=== PATIENT | female | born 1935 | race Caucasian/White ===

== ENCOUNTER 2017-07-04 08:09 | Emergency (ER) | payer MEDICARE, BC ==
[2017-07-04] MEDS ORDERED: Zofran 4 MG/2 ML VIAL IV ONE (08:28)
[2017-07-04] MEDS ORDERED: Lactated Ringers 1,000 ML IV SCH (08:30)
[2017-07-04] MEDS ORDERED: Zofran 4 MG/2 ML VIAL ONE (08:32)
[2017-07-04] MEDS ORDERED: Lactated Ringers 1,000 ML IV ONE (08:32)
--- NOTE | 2017-07-04 08:35 | ERPHSYRPT ---
- History of Present Illness Time Seen by Provider: 07/04/17 08:21 Source: patient Patient Subjective Stated Complaint: PT STATES THAT SHE HAS HAD DIARRHEA SINCE THURDDAY OFF. AND ON STATES THAT SHE WAS SEEN YESTERDAY AT [facility] AND THEY DID A STOOL SPEICMEN STATES THAT LAST. NIGHT SHE STARTED VOMITING STATSE VOMITING X 1. DENIES FEVER STATSE SHE HAS SOME DISCOMFORT IN HER. ABDOMEN. Triage Nursing Assessment: PT ALERT WARM AND DRY RESP EASY NON LABORED. DRY MUCUS MEMBRANES NOTED AMBUALTED FROM WHEELCHAIR. WITH NURS ASSITENCE. ABDOMEN SOFT TENDER TO LEFT UPPER AND. LOWER QUAD. Physician History: CC: diarrhea hx: 82 y/o diabetic patient of Dr Barry and Alesha. She had diarrhea Thurs, Sat, Sun, and some yest. It is off and on every other day. This AM vomited large yellow emesis early AM. No fever or chills. No recent changes in her diabetic medications. She was traveling to [facility] and visited family. She used pedialyte and water. She saw [facility] yesterday for diarrhea and had negative C diff test. No abdominal pain. No blood in vomit or stool. Timing/Duration: day(s) (5-6), intermittent Severity: moderate Allergies/Adverse Reactions: No Known Drug Allergies Allergy (Unverified 07/04/17 08:19) Home Medications: Amlodipine Besylate [Amlodipine Besylate] 10 mg PO 07/04/17 [History] Fenofibrate Nanocrystallized [Fenofibrate] 48 mg PO BID 07/04/17 [History] Glimepiride [Glimepiride] 2 mg PO DAILY 07/04/17 [History] Latanoprost [Latanoprost] 07/04/17 [History] Losartan/Hydrochlorothiazide [Losartan-Hctz 100-12.5 mg Tab] 07/04/17 [History] Metformin HCl [Metformin HCl] 1,000 mg PO 07/04/17 [History] Metoprolol Tartrate 50 mg [Lopressor 50 MG] 50 mg PO 07/04/17 [History] NPH, Human Insulin Isophane [Humulin N] 07/04/17 [History] Hx Tetanus, Diphtheria Vaccination/Date Given: Yes Hx Influenza Vaccination/Date Given: Yes Hx Pneumococcal Vaccination/Date Given: Yes Immunizations Up to Date: Yes - Review of Systems Constitutional: Malaise, No Fever, No Chills Eyes: No Symptoms Ears, Nose, & Throat: No Symptoms Respiratory: No Cough, No Dyspnea Cardiac: No Chest Pain Abdominal/Gastrointestinal: Nausea, Vomiting (X1), Diarrhea, No Abdominal Pain Genitourinary Symptoms: No Dysuria Skin: No Rash Neurological: No Headache All Other Systems: Reviewed and Negative - Past Medical History Pertinent Past Medical History: Yes Cardiac History: Hypertension Endocrine Medical History: Diabetes Type II Other Medical History: DIABETIC - Past Surgical History Past Surgical History: Yes Other Surgical History: 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,COLON SURGERIES "YEARS AND YEARS AGO " PACEMAKER - Social History Smoking Status: Never smoker Exposure to second hand smoke: No Drug Use: none Patient Lives Alone: No (here with ) - Female History Hx Last Menstrual Period: N/A - Nursing Vital Signs Nursing Vital Signs: Initial Vital Signs Temperature 97.9 F 07/04/17 08:19 Pulse Rate 75 07/04/17 08:19 Respiratory Rate 18 07/04/17 08:19 O2 Sat by Pulse Oximetry 95 07/04/17 08:19 Pain Scale Pain Intensity 2 - Physical Exam General Appearance: alert Eye Exam: PERRL/EOMI Ears, Nose, Throat Exam: normal ENT inspection, other (tacky mucous membranes) Neck Exam: normal inspection, non-tender, supple Respiratory Exam: normal breath sounds Cardiovascular Exam: regular rate/rhythm Gastrointestinal/Abdomen Exam: soft, No tenderness, No distention, No mass, No guarding Back Exam: normal inspection, No CVA tenderness Extremity Exam: normal inspection, normal range of motion, No calf tenderness, No pedal edema Neurologic Exam: alert, oriented x 3, 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, 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, sensation nml, No motor deficits Skin Exam: warm, dry, No rash SpO2 Interpretation: normal SpO2: 95 Oxygen Delivery: Room Air - Course Nursing assessment & vital signs reviewed: Yes - Radiology Exams AAS X-ray Interpretation: Teleradiologist Report, Negative Ordered Tests: Active Orders 24 hr Category Date Time Status Cath for Specimen-Straight STAT Care 07/04/17 08:29 Active IV Insertion STAT Care 07/04/17 08:28 Active OBSTR/ACUTE ABDOMEN SERIES Stat Exams 07/04/17 08:29 Completed CBC W DIFF Stat Lab 07/04/17 08:50 Completed CMP Stat Lab 07/04/17 08:50 Completed CULTURE,URINE Stat Lab 07/04/17 09:00 Received Lactic Acid Stat Lab 07/04/17 08:28 Completed MAGNESIUM Stat Lab 07/04/17 08:50 Completed UA W/ MICROSCOPIC Stat Lab 07/04/17 09:00 Completed Medication Summary Generic Name Dose Route Start Last Admin Trade Name Mark PRN Reason Stop Dose Admin Lactated Ringer's 1,000 mls @ 250 mls/hr 07/04/17 08:30 07/04/17 08:56 Lactated Ringers IV 08/03/17 08:29 250 mls/hr .Q4H MONE Administration Magnesium Sulfate/Dextrose 100 mls @ 100 mls/hr 07/04/17 10:00 07/04/17 10:00 Magnesium 1 Gm / 100 Ml D5w IV 07/04/17 11:59 100 mls/hr Q1H MONE Administration Cefazolin Sodium/Dextrose 1 gm in 50 mls @ 100 mls/hr 07/04/17 10:05 Kefzol 1 Gm/50 Ml Premix IV 07/04/17 10:34 STAT STA Discontinued Medications Generic Name Dose Route Start Last Admin Trade Name Mark PRN Reason Stop Dose Admin Ondansetron HCl 4 mg 07/04/17 08:28 07/04/17 08:58 Zofran 4 Mg/2 Ml Vial IV 07/04/17 08:29 4 mg STAT ONE Administration Ondansetron HCl Confirm 07/04/17 08:32 Zofran 4 Mg/2 Ml Vial Administered 07/04/17 08:33 Dose 4 mg .ROUTE .STK-MED ONE Lab/Rad Data: Laboratory Result Diagrams 07/04/17 08:50 07/04/17 08:50 Laboratory Results 07/04/17 07/04/17 07/04/17 Range/Units 09:00 08:50 08:50 WBC (4.0-10.5) K/mm3 RBC (4.1-5.4) M/mm3 Hgb (12.0-16.0) gm/dl Hct (35-47) % MCV (78-100) fl MCH (26-32) pg MCHC (32-36) g/dl RDW (11.5-14.0) % Plt Count (150-450) K/mm3 MPV (6-9.5) fl Gran % (36.0-66.0) % Lymphocytes % (24.0-44.0) % Monocytes % (0.0-12.0) % Eosinophils % (0.00-5.0) % Basophils % (0.0-0.4) % Basophils # (0-0.4) Sodium 141 (136-145) mEq/L Potassium 4.1 (3.5-5.1) mEq/L Chloride 102 (98-107) mEq/L Carbon Dioxide 23.9 (21-32) mEq/L Anion Gap 18.8 H (5-15) MEQ/L BUN 16 (9-20) mg/dL Creatinine 1.07 (0.55-1.30) mg/dl Estimated GFR 52 ML/MIN Glucose 199 H (70-110) MG/DL Lactic Acid (0.4-2.0) Calcium 10.1 (8.5-10.1) mg/dL Magnesium 1.6 L (1.8-2.4) mg/dL Total Bilirubin 0.40 (0.2-1.0) mg/dL AST 25 (15-37) U/L ALT 31 (12-78) U/L Alkaline Phosphatase 47 (46-116) U/L Serum Total Protein 8.4 H (6.4-8.2) gm/dL Albumin 4.5 (3.4-5.0) g/dL Ur Collection Type CATH Urine Color YELLOW (YELLOW) Urine Appearance CLEAR (CLEAR) Urine pH 5.0 (5-6) Ur Specific [place] 1.015 (1.005-1.025) Urine Protein TRACE (Negative) Urine Ketones NEGATIVE (NEGATIVE) Urine Blood 5-10 (0-5) Benji/ul Urine Nitrite NEGATIVE (NEGATIVE) Urine Bilirubin NEGATIVE (NEGATIVE) Urine Urobilinogen NORMAL (0-1) mg/dL Ur Leukocyte Esterase 2+ (NEGATIVE) Urine Microscopic WBC 10-15 (0-5) /HPF Ur Epithelial Cells RARE (FEW) /HPF Urine Bacteria MODERATE (NEGATIVE) /HPF Urine Mucus MODERATE (NEGATIVE) /HPF Urine Culture Reflexed YES (NO) Urine Glucose TRACE (NEGATIVE) mg/dL Specimen Received 07/04/17 0807/04/17 07/04/17 Range/Units 08:50 08:28 WBC 14.8 H (4.0-10.5) K/mm3 RBC 4.22 (4.1-5.4) M/mm3 Hgb 12.7 (12.0-16.0) gm/dl Hct 37.9 (35-47) % MCV 89.8 (78-100) fl MCH 30.1 (26-32) pg MCHC 33.5 (32-36) g/dl RDW 14.3 H (11.5-14.0) % Plt Count 398 (150-450) K/mm3 MPV 10.0 H (6-9.5) fl Gran % 82.5 H (36.0-66.0) % Lymphocytes % 11.2 L (24.0-44.0) % Monocytes % 5.5 (0.0-12.0) % Eosinophils % 0.5 (0.00-5.0) % Basophils % 0.3 (0.0-0.4) % Basophils # 0.05 (0-0.4) Sodium (136-145) mEq/L Potassium (3.5-5.1) mEq/L Chloride (98-107) mEq/L Carbon Dioxide (21-32) mEq/L Anion Gap (5-15) MEQ/L BUN (9-20) mg/dL Creatinine (0.55-1.30) mg/dl Estimated GFR ML/MIN Glucose (70-110) MG/DL Lactic Acid 1.6 (0.4-2.0) Calcium (8.5-10.1) mg/dL Magnesium (1.8-2.4) mg/dL Total Bilirubin (0.2-1.0) mg/dL AST (15-37) U/L ALT (12-78) U/L Alkaline Phosphatase (46-116) U/L Serum Total Protein (6.4-8.2) gm/dL Albumin (3.4-5.0) g/dL Ur Collection Type Urine Color (YELLOW) Urine Appearance (CLEAR) Urine pH (5-6) Ur Specific [place] (1.005-1.025) Urine Protein (Negative) Urine Ketones (NEGATIVE) Urine Blood (0-5) Benji/ul Urine Nitrite (NEGATIVE) Urine Bilirubin (NEGATIVE) Urine Urobilinogen (0-1) mg/dL Ur Leukocyte Esterase (NEGATIVE) Urine Microscopic WBC (0-5) /HPF Ur Epithelial Cells (FEW) /HPF Urine Bacteria (NEGATIVE) /HPF Urine Mucus (NEGATIVE) /HPF Urine Culture Reflexed (NO) Urine Glucose (NEGATIVE) mg/dL Specimen Received - Progress Progress Note: 07/04/17 10:12 She has some leg cramps and labs show UTI. IV mag, LR given. She feels better with zofran. Will release with zofran odt and keflex and advised follow up. Counseled pt/family regarding: lab results, diagnosis, need for follow-up, rad results - Departure Time of Disposition: 10:13 Departure Disposition: Home Clinical Impression: Vomiting and diarrhea, Hypomagnesemia UTI (urinary tract infection) Qualifiers: Urinary tract infection type: acute cystitis Hematuria presence: without hematuria Qualified Code(s): N30.00 - Acute cystitis without hematuria Condition: Stable Critical Care Time: No Referrals: MICHAEL BARRY [Primary Care Provider] - Instructions: Diarrhea and Traveler's Diarrhea -- Adult, Vomiting -- Adult Additional Instructions: Sip fluids. Watch your sugars. Follow up with Dr Barry this week. Rx keflex for UTI. Rx zofran for nausea/vomiting. Prescriptions: Ondansetron ODT 4 MG [Zofran Odt 4 mg] 1 tab PO Q6H PRN PRN #10 tab.rapdis PRN Reason: Nausea/Vomiting Cephalexin Mh 500 mg [Keflex 500 mg] 1 cap PO QID #28 capsule
--- NOTE | 2017-07-04 08:59 | XRAY ---
Indication: Vomiting, diarrhea, and weakness 6 days. Weakness. Comparison: Chest exam January 11, 2010. 2 views of the abdomen nonacute and nonobstructed with calcified uterine fibroid and heavy scattered vascular calcifications. Remaining solid organs unremarkable. Osseous structures intact with mild multilevel degenerative spondylosis. Single PA chest again hyperinflated and clear with a few incidental calcified granulomas and left-sided dual-lead pacemaker. Heart is not enlarged. Bony thorax intact. Impression: Negative abdomen. Stable nonacute hyperinflated one view chest.
[2017-07-04 09:28] LABS: BASOPHIL % 0.3 % (0.0-0.4); Basophil (Absolute #) 0.05 (0-0.4); Eosinophil % 0.5 % (0.00-5.0); Eosinophil (Absolute #) 0.08 (0-0.5); Granulocyte Absolute (ANC) 12.19 (1.4-6.9); Granulocytes % 82.5 % (36.0-66.0); Hematocrit 37.9 % (35-47); Hemoglobin 12.7 gm/dl (12.0-16.0); Lymphocyte (Absolute #) 1.66 (1.0-4.6); Lymphocytes % 11.2 % (24.0-44.0); Mean Cell Volume 89.8 fl (78-100); Mean Corpuscular Hemoglobin 30.1 pg (26-32); Mean Corpuscular Hgb Concent. 33.5 g/dl (32-36); Monocyte (Absolute #) 0.81 (0.0-1.3); Monocytes % 5.5 % (0.0-12.0); Platelet Count 398 K/mm3 (150-450); Red Blood Count 4.22 M/mm3 (4.1-5.4); Red Cell Distribution Width 14.3 % (11.5-14.0); White Blood Count 14.8 K/mm3 (4.0-10.5)
[2017-07-04 09:30] LABS: ALBUMIN 4.5 g/dL (3.4-5.0); ANION GAP 18.8 MEQ/L (5-15); BILIRUBIN,TOTAL 0.4 mg/dL (0.2-1.0); Calcium 10.1 mg/dL (8.5-10.1); Carbon Dioxide 23.9 mEq/L (21-32); Creatinine 1 1.07 mg/dl (0.55-1.30); Potassium 4.1 mEq/L (3.5-5.1); Total Protein 8.4 gm/dL (6.4-8.2)
[2017-07-04 09:52] LABS: Appearance CLEAR (CLEAR); Bilirubin NEGATIVE (NEGATIVE); Glucose TRACE mg/dL (NEGATIVE); Ketones NEGATIVE (NEGATIVE); Leukocyte Esterase 2+ (NEGATIVE); Nitrite NEGATIVE (NEGATIVE); Protein,Urine Dip TRACE (Negative); Specific Gravity 1.015 (1.005-1.025); Urobilinogen NORMAL mg/dL (0-1)
[2017-07-04 09:53] LABS: Bacteria MODERATE /HPF (NEGATIVE); Epithelial Cells RARE /HPF (FEW); Mucus MODERATE /HPF (NEGATIVE)
[2017-07-04] MEDS ORDERED: Magnesium 1 Gm / 100 Ml D5W*** 200 ML IV ONE (09:57)
[2017-07-04] MEDS: Magnesium 1 Gm / 100 Ml D5W*** 100 ML IV SCH (10:00)
[2017-07-04] MEDS ORDERED: KEFZOL 1 GM/50 ML PREMIX** 1 GM/50 ML IVPB IV STA (10:05)
[2017-07-04] MEDS ORDERED: KEFZOL 1 GM/50 ML PREMIX** 1 GM/50 ML IVPB IV ONE (10:33)
[2017-07-04 11:52] VITALS: BP 150/45; PULSE 70; O2SAT 97
== END 2017-07-04 11:53 | disposition home or self-care (01) ==
LOC: ED 08:09
DX: R11.2 Nausea with vomiting, unspecified (principal); R19.7 Diarrhea, unspecified; E83.42 Hypomagnesemia; N30.00 Acute cystitis without hematuria; E11.9 Type 2 diabetes mellitus without complications; Z79.4 Long term (current) use of insulin; Z79.899 Other long term (current) drug therapy
CPT/HCPCS: 96374; 96365; 96366; 99284; 36000; 96360; 96361; 81000; 36415; 83735; 85025; 80053; 87086; 74022; 83605; P9612; J0690; J2405; J3475

== ENCOUNTER 2018-10-14 06:51 | Emergency (ER) | payer MEDICARE, BC ==
[2018-10-14] MEDS ORDERED: Sodium Chloride 0.9% 1000 ML 1,000 ML IV STA (07:34)
--- NOTE | 2018-10-14 07:38 | ERPHSYRPT ---
- History of Present Illness Time Seen by Provider: 10/14/18 07:29 Historian: patient Exam Limitations: no limitations Patient Subjective Stated Complaint: diarrhea since yesterday Triage Nursing Assessment: ambulated to room per self. skin w/d, color normal, resp easy. abd soft, normal bowel sounds, nontender. states has had two liquid stools today. Physician History: 83-year-old white female arrives with complaint of diarrhea since yesterday. Patient states she had oatmeal yesterday for breakfast she went to a local [facility] festival she states she started having loose stools. She states she went to clear fluids last night and thinks he settled down but this morning she's had 2 more loose stools. She denies abdominal pain she denies any blood in her stools. Past medical history includes high blood pressure diabetes. Past surgical history blockage and carotid colon surgery in the distant past. Social history denies tobacco alcohol or illicit drug use. Timing/Duration: yesterday Activities at Onset: none Quality: other (no pain) Abdominal Pain Onset Location: other (no pain) Pain Radiation: other (no pain) Severity of Pain-Max: none Severity of Pain-Current: none Modifying Factors: Worsens With: analgesics, antacids, breathing, coughing, defecating, eating, exercise, lying down, movement, palpation, rest, urinating, vomiting, position, walking Associated Symptoms: diarrhea, No back, No chest pain, No diaphoresis, No fever/ chills, No fatigue, No headache, No heartburn, No loss of appetite, No nausea, No neck pain, No rash, No shortness of breath, No syncope, No vomiting, No weakness Previous symptoms: same symptoms as today (similar symptoms a year ago) Allergies/Adverse Reactions: No Known Drug Allergies Allergy (Verified 10/14/18 07:12) Home Medications: Amlodipine Besylate 10 mg PO DAILY 07/04/17 [History] Fenofibrate Nanocrystallized [Fenofibrate] 48 mg PO BID 07/04/17 [History] Glimepiride 2 mg PO DAILY 07/04/17 [History] Latanoprost 0.005 ea OP DAILY 07/04/17 [History] Losartan/Hydrochlorothiazide [Losartan-Hctz 100-12.5 mg Tab] 100 mg PO DAILY [History] Metformin HCl 1,000 mg PO BID 07/04/17 [History] Metoprolol Tartrate 50 mg [Lopressor 50 MG] 50 mg PO BID 07/04/17 [History ] NPH, Human Insulin Isophane [Humulin N] 24 units SQ DAILY 07/04/17 [History] Hx Tetanus, Diphtheria Vaccination/Date Given: No Hx Influenza Vaccination/Date Given: Yes Hx Pneumococcal Vaccination/Date Given: Yes - Review of Systems Constitutional: No Fever, No Chills Eyes: No Symptoms Ears, Nose, & Throat: No Symptoms Respiratory: No Cough, No Dyspnea Cardiac: No Chest Pain, No Edema, No Syncope Abdominal/Gastrointestinal: Diarrhea, No Abdominal Pain, No Nausea, No Vomiting , No Constipation, No Hematemesis, No Hematochezia, No Melena, No Dysphagia, No Appetite Changes Genitourinary Symptoms: No Dysuria Musculoskeletal: No Back Pain, No Neck Pain Skin: No Rash Neurological: No Dizziness, No Focal Weakness, No Sensory Changes Psychological: No Symptoms Endocrine: No Symptoms All Other Systems: Reviewed and Negative - Past Medical History Pertinent Past Medical History: Yes Cardiac History: Angina, Hypertension Endocrine Medical History: Diabetes Type II Female Reproductive Disorders: Abnormal Uterine Bleeding Other Medical History: DIABETIC - Past Surgical History Past Surgical History: Yes Cardiac: Pacemaker Female Surgical History: Hysterectomy Other Surgical History: 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,COLON SURGERIES "YEARS AND YEARS AGO " - Social History Smoking Status: Former smoker Exposure to second hand smoke: No Drug Use: none Patient Lives Alone: No - Female History Hx Now: No - Nursing Vital Signs Nursing Vital Signs: Initial Vital Signs Temperature 98.3 F 10/14/18 07:05 Pulse Rate 83 10/14/18 07:05 Respiratory Rate 16 10/14/18 07:05 Blood Pressure 142/59 10/14/18 07:05 O2 Sat by Pulse Oximetry 96 10/14/18 07:05 Pain Scale Pain Intensity 0 - Physical Exam General Appearance: no apparent distress, alert Eye Exam: PERRL/EOMI, eyes nml inspection Ears, Nose, Throat Exam: normal ENT inspection, pharynx normal, moist mucous membranes Neck Exam: normal inspection, non-tender, supple, full range of motion Respiratory Exam: normal breath sounds, lungs clear, No respiratory distress Cardiovascular Exam: regular rate/rhythm, normal heart sounds, capillary refill <2 sec Gastrointestinal/Abdomen Exam: soft, No tenderness, No mass Back Exam: normal inspection, normal range of motion, No CVA tenderness, No vertebral tenderness Extremity Exam: normal inspection, normal range of motion, pelvis stable Neurologic Exam: alert, oriented x 3, 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, 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, normal mood/affect, nml cerebellar function, sensation nml, No motor deficits Skin Exam: normal color, warm, dry SpO2 Interpretation: normal (96%) SpO2: 96 - Course Nursing assessment & vital signs reviewed: Yes Ordered Tests: Active Orders 24 hr Category Date Time Status IV Insertion STAT Care 10/14/18 07:34 Active AMYLASE Stat Lab 10/14/18 07:47 Completed CBC W DIFF Stat Lab 10/14/18 07:47 Completed CMP Stat Lab 10/14/18 07:47 Completed LIPASE Stat Lab 10/14/18 07:47 Completed Urinalysis with Microscopy Stat Lab 10/14/18 07:50 Completed Medication Summary Discontinued Medications Generic Name Dose Route Start Last Admin Trade Name Mark PRN Reason Stop Dose Admin Sodium Chloride 1,000 mls @ 999 mls/hr 10/14/18 07:34 10/14/18 07:41 Sodium Chloride 0.9% 1000 Ml IV 10/14/18 08:34 999 mls/hr .Q1H1M STA Administration Sodium Chloride Confirm 10/14/18 07:39 Sodium Chloride 0.9% 1000 Ml Administered 10/14/18 07:40 Dose 1,000 mls @ ud .ROUTE .STK-MED ONE Lab/Rad Data: Laboratory Result Diagrams 10/14/18 07:47 10/14/18 07:47 Laboratory Results 10/14/18 10/14/18 10/14/18 Range/Units 07:50 07:47 07:47 WBC 6.2 (4.0-10.5) K/mm3 RBC 3.93 L (4.1-5.4) M/mm3 Hgb 12.0 (12.0-16.0) gm/dl Hct 36.1 (35-47) % MCV 91.9 (78-100) fl MCH 30.5 (26-32) pg MCHC 33.2 (32-36) g/dl RDW 13.8 (11.5-14.0) % Plt Count 389 (150-450) K/mm3 MPV 9.9 H (6-9.5) fl Gran % 52.9 (36.0-66.0) % Eos # (Auto) 0.21 (0-0.5) Absolute Lymphs (auto) 2.10 (1.0-4.6) Absolute Monos (auto) 0.55 (0.0-1.3) Lymphocytes % 34.1 (24.0-44.0) % Monocytes % 8.9 (0.0-12.0) % Eosinophils % 3.4 (0.00-5.0) % Basophils % 0.7 (0.0-0.4) % Absolute Granulocytes 3.25 (1.4-6.9) Basophils # 0.04 (0-0.4) Sodium 137 (137-145) mmol/L Potassium 4.0 (3.5-5.1) mmol/L Chloride 99 (98-107) mmol/L Carbon Dioxide 26 (22-30) mmol/L Anion Gap 15.8 H (5-15) MEQ/L BUN 19 H (7-17) mg/dL Creatinine 0.72 (0.52-1.04) mg/dL Estimated GFR > 60.0 ML/MIN Glucose 126 H (74-106) mg/dL Calcium 10.0 (8.4-10.2) mg/dL Total Bilirubin 0.50 (0.2-1.3) mg/dL AST 26 (14-36) U/L ALT 16 (0-35) U/L Alkaline Phosphatase 41 (38-126) U/L Serum Total Protein 7.8 (6.3-8.2) g/dL Albumin 4.5 (3.5-5.0) g/dL Amylase 73 (30-110) U/L Lipase 69 (23-300) U/L Urine Color YELLOW (YELLOW) Urine Appearance CLEAR (CLEAR) Urine pH 7.0 (5-6) Ur Specific [place] 1.006 (1.005-1.025) Urine Protein NEGATIVE (Negative) Urine Ketones NEGATIVE (NEGATIVE) Urine Blood NEGATIVE (0-5) Benji/ul Urine Nitrite NEGATIVE (NEGATIVE) Urine Bilirubin NEGATIVE (NEGATIVE) Urine Urobilinogen NEGATIVE (0-1) mg/dL Ur Leukocyte Esterase NEGATIVE (NEGATIVE) Urine Culture Reflexed Cancelled Urine Glucose NEGATIVE (NEGATIVE) mg/dL - Progress Progress: improved Progress Note: 10/14/18 08:35 patient stable vitals are stable labs essentially normal Will place patient on Lomotil clear fluids. - Departure Departure Disposition: Home Clinical Impression: Diarrhea Qualifiers: Diarrhea type: unspecified type Qualified Code(s): R19.7 - Diarrhea, unspecified Condition: Fair Critical Care Time: No Referrals: MICHAEL DAHL [Primary Care Provider] - Additional Instructions: Return home. Plenty of fluids. Clear fluids only 24-48 hours if diarrhea abdominal pain or vomiting Lomotil one orally 4 times a day as needed for loose stools #12. Followup with your family DrEda if symptoms no better in 24-48 hours or persist longer than 72 hours. Return for acute distress or for severe symptoms. Prescriptions: Diphenoxylate HCl/Atropine [Lomotil] 1 tab PO QIDPRN PRN #12 tablet PRN Reason: Loose Stools
[2018-10-14] MEDS ORDERED: Sodium Chloride 0.9% 1000 ML 1,000 ML ONE (07:39)
[2018-10-14 07:56] LABS: Appearance CLEAR (CLEAR); Bilirubin NEGATIVE (NEGATIVE); Blood NEGATIVE Ery/ul (0-5); Glucose NEGATIVE (NEGATIVE); Ketones NEGATIVE (NEGATIVE); Leukocyte Esterase NEGATIVE (NEGATIVE); Nitrite NEGATIVE (NEGATIVE); Protein,Urine Dip NEGATIVE (Negative); Specific Gravity 1.006 (1.005-1.025); Urobilinogen NEGATIVE mg/dL (0-1)
[2018-10-14 08:02] LABS: BASOPHIL % 0.7 % (0.0-0.4); Basophil (Absolute #) 0.04 (0-0.4); Eosinophil % 3.4 % (0.00-5.0); Eosinophil (Absolute #) 0.21 (0-0.5); Granulocyte Absolute (ANC) 3.25 (1.4-6.9); Granulocytes % 52.9 % (36.0-66.0); Hematocrit 36.1 % (35-47); Lymphocytes % 34.1 % (24.0-44.0); Mean Cell Volume 91.9 fl (78-100); Mean Corpuscular Hemoglobin 30.5 pg (26-32); Mean Corpuscular Hgb Concent. 33.2 g/dl (32-36); Mean Platelet Volume 9.9 fl (6-9.5); Monocyte (Absolute #) 0.55 (0.0-1.3); Monocytes % 8.9 % (0.0-12.0); Platelet Count 389 K/mm3 (150-450); Red Blood Count 3.93 M/mm3 (4.1-5.4); Red Cell Distribution Width 13.8 % (11.5-14.0); White Blood Count 6.2 K/mm3 (4.0-10.5)
[2018-10-14 08:12] LABS: ALBUMIN 4.5 g/dL (3.5-5.0); ALKALINE PHOSPHATASE 41 U/L (38-126); AMYLASE 73 U/L (30-110); ANION GAP 15.8 MEQ/L (5-15); BLOOD UREA NITROGEN 19 mg/dL (7-17); CHLORIDE 99 mmol/L (98-107); Carbon Dioxide 26 mmol/L (22-30); Creatinine 1 0.72 mg/dL (0.52-1.04); Glucose 126 mg/dL (74-106); LIPASE 69 U/L (23-300); SGOT/AST 26 U/L (14-36); SGPT/ALT 16 U/L (0-35); SODIUM 137 mmol/L (137-145); Total Protein 7.8 g/dL (6.3-8.2)
[2018-10-14 08:38] VITALS: O2SAT 96
[2018-10-14 08:43] LABS: Epithelial Cells RARE /HPF (FEW); RBC 0-2 /HPF (0-2); WBC NONE SEEN /HPF (0-5)
[2018-10-14 09:00] VITALS: BP 134/55; PULSE 70
== END 2018-10-14 09:00 | disposition home or self-care (01) ==
LOC: ED 06:51
DX: R19.7 Diarrhea, unspecified (principal); I10 Essential (primary) hypertension; E11.9 Type 2 diabetes mellitus without complications; Z79.899 Other long term (current) drug therapy; Z79.84 Long term (current) use of oral hypoglycemic drugs; Z79.4 Long term (current) use of insulin
CPT/HCPCS: 36000; 36415; 80053; 81001; 82150; 83690; 85025; 87086; 96360; 96374; 99284; P9612

== ENCOUNTER 2019-08-14 00:42 | Emergency (ER) | payer MEDICARE, BC ==
--- NOTE | 2019-08-14 01:34 | ERPHSYRPT ---
- History of Present Illness Time Seen by Provider: 08/14/19 01:27 Source: patient, family () Exam Limitations: no limitations Patient Subjective Stated Complaint: pt states that she got up to go to the bathroom, pt states that her rt side of her neck hurts and unable to move it, pt states that she has increased swelling to ANA wrist, pt c/o shaking to rt arm and leg, pt states she has RA, states that pt has had carotid artery on rt side Triage Nursing Assessment: pt ambulated into the er, axo x3, hyertensive, c/o 8/ 10 pain to rt side of neck, tenderness present to rt side of neck down to rt arm , tremors present to rt arm, lump present to rt side of neck, pupils 2 mm PERRL , positive radial pulses, good cap refill Physician History: For the past 4-5 days pt has had right sided neck pain, worse in the past hour. About 1 hour ago pt had shaking of her right upper extremity and swelling of both wrists. Pt has RA. Recent trauma, chest pain, shortness of air, fever all denied. Allergies/Adverse Reactions: No Known Drug Allergies Allergy (Verified 08/14/19 01:22) Home Medications: Amlodipine Besylate 10 mg PO DAILY 07/04/17 [History] Fenofibrate Nanocrystallized [Fenofibrate] 48 mg PO BID 07/04/17 [History] Glimepiride 2 mg PO DAILY 07/04/17 [History] Metformin HCl 500 mg PO BID 07/04/17 [History] Metoprolol Tartrate 50 mg [Lopressor 50 MG] 50 mg PO BID 07/04/17 [History ] NPH, Human Insulin Isophane [Humulin N] 20 units SQ DAILY 07/04/17 [History] Clopidogrel Bisulfate [Clopidogrel] 75 mg PO DAILY 08/14/19 [History] Folic Acid 1 mg [Folate 1 mg] 1 mg PO DAILY 08/14/19 [History] Hydrochlorothiazide 12.5 mg PO DAILY 08/14/19 [History] Isosorbide Mononitrate [Isosorbide Mononitrate ER] 30 mg PO DAILY 08/14/19 [ History] Latanoprost 1 drop OP HS 08/14/19 [History] Losartan Potassium 100 mg PO DAILY 08/14/19 [History] Methotrexate Sodium [Methotrexate] 6 tab PO WEEKLY 08/14/19 [History] Prednisone 1 mg PO DAILY 08/14/19 [History] Hx Tetanus, Diphtheria Vaccination/Date Given: No Hx Influenza Vaccination/Date Given: Yes Hx Pneumococcal Vaccination/Date Given: Yes Travel Risk - International Travel Have you traveled outside of the country in past 3 weeks: No (n) Have you or anyone close to you been diagnosed with or: No Do your reside in a community with a known COVID-19 case?: Yes If Yes where:: [place] - Coronavirus Screening Has patient experienced Coronavirus symptoms: No - Review of Systems Constitutional: No Fever Respiratory: No Dyspnea Cardiac: No Chest Pain Abdominal/Gastrointestinal: No Abdominal Pain, No Nausea, No Vomiting Musculoskeletal: Neck Pain Neurological: Other (tremors of right upper extremity for the past hour.) All Other Systems: Reviewed and Negative - Past Medical History Pertinent Past Medical History: Yes Neurological History: Dementia Cardiac History: Angina, Coronary Artery Disease, Hypertension Endocrine Medical History: Diabetes Type II Female Reproductive Disorders: Abnormal Uterine Bleeding Other Medical History: DIABETIC - Past Surgical History Past Surgical History: Yes Cardiac: Pacemaker Female Surgical History: Hysterectomy Other Surgical History: 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,COLON SURGERIES "YEARS AND YEARS AGO " - Social History Smoking Status: Former smoker Exposure to second hand smoke: No Drug Use: none Patient Lives Alone: No - Female History Hx Now: No - Nursing Vital Signs Nursing Vital Signs: Initial Vital Signs Temperature 98.1 F 08/14/19 01:06 Pulse Rate 89 08/14/19 01:06 Respiratory Rate 17 08/14/19 01:06 Blood Pressure 172/89 08/14/19 01:06 O2 Sat by Pulse Oximetry 97 08/14/19 01:06 Pain Scale Pain Intensity 8 - Physical Exam General Appearance: alert Eye Exam: eyes nml inspection Ears, Nose, Throat Exam: pharynx normal, moist mucous membranes Neck Exam: non-tender, other (painful rotation of head to right or left which radiates to right shoulder.) Respiratory Exam: normal breath sounds Cardiovascular Exam: normal heart sounds Gastrointestinal/Abdomen Exam: soft, normal bowel sounds Back Exam: No vertebral tenderness Extremity Exam: normal range of motion, other (mild edema of both wrists.) Neurologic Exam: alert, cooperative, sensation nml, other (mild tremors at rest of right upper extremityl) Skin Exam: warm, dry SpO2 Interpretation: normal SpO2: 97 O2 Delivery: Room Air - Course Nursing assessment & vital signs reviewed: Yes - CT Exams Soft Tissue Neck CT Interpretation: Tele-radiologist Report (no acute abnormality demonstrated. previous right carotid endarteredtomy.) Head CT Interpretation: Tele-radiologist Report (diffuse atrophy and chronic/remote ischemic changes without evidence of superimposed acute infarct, hemorrhage or mass-effect at this time.) Ordered Tests: Active Orders 24 hr Category Date Time Status Cervical Collar Application STAT Care 08/14/19 03:25 Active Isolation, Initiate & Maintain Q4H Care 08/14/19 01:22 Active HEAD WITHOUT CONTRAST [CT] Stat Exams 08/14/19 01:36 Taken NECK WO CONTRAST [CT] Stat Exams 08/14/19 01:36 Taken CBC W DIFF Stat Lab 08/14/19 01:54 Completed CMP Stat Lab 08/14/19 01:54 Completed MAG [MAGNESIUM] Stat Lab 08/14/19 01:54 Completed UA W/RFX UR CULTURE Stat Lab 08/14/19 02:35 Completed Medication Summary Discontinued Medications Generic Name Dose Route Start Last Admin Trade Name Freq PRN Reason Stop Dose Admin Hydrocodone Bitart/Acetaminophen 1 tab 08/14/19 03:26 Yeaddiss 5/325 Mg PO 08/14/19 03:27 STAT ONE Hydrocodone Bitart/Acetaminophen Confirm 08/14/19 03:28 Yeaddiss 5/325 Mg Administered 08/14/19 03:29 Dose 1 tab .ROUTE .STK-MED ONE Lab/Rad Data: Laboratory Result Diagrams 08/14/19 01:54 08/14/19 01:54 Laboratory Results 08/14/19 08/14/19 08/14/19 Range/Units 02:35 01:54 01:54 WBC 9.3 (4.0-10.5) K/mm3 RBC 3.28 L (4.1-5.4) M/mm3 Hgb 10.2 L (12.0-16.0) gm/dl Hct 30.8 L (35-47) % MCV 93.9 (78-100) fl MCH 31.1 (26-32) pg MCHC 33.1 (32-36) g/dl RDW 16.0 H (11.5-14.0) % Plt Count 492 H (150-450) K/mm3 MPV 8.7 (7.5-11.0) fl Gran % 64.2 (36.0-66.0) % Eos # (Auto) 0.33 (0-0.5) Absolute Lymphs (auto) 1.89 (1.0-4.6) Absolute Monos (auto) 0.98 (0.0-1.3) Lymphocytes % 20.3 L (24.0-44.0) % Monocytes % 10.5 (0.0-12.0) % Eosinophils % 3.6 (0.00-5.0) % Basophils % 1.4 (0.0-0.4) % Absolute Granulocytes 5.96 (1.4-6.9) Basophils # 0.13 (0-0.4) Sodium 138 (137-145) mmol/L Potassium 3.8 (3.5-5.1) mmol/L Chloride 102 (98-107) mmol/L Carbon Dioxide 25 (22-30) mmol/L Anion Gap 15.1 H (5-15) MEQ/L BUN 19 H (7-17) mg/dL Creatinine 0.84 (0.52-1.04) mg/dL Estimated GFR > 60.0 ML/MIN Glucose 178 H (74-106) mg/dL Calcium 9.7 (8.4-10.2) mg/dL Magnesium 1.8 (1.6-2.3) mg/dL Total Bilirubin 0.30 (0.2-1.3) mg/dL AST 27 (14-36) U/L ALT 16 (0-35) U/L Alkaline Phosphatase 71 (38-126) U/L Serum Total Protein 7.8 (6.3-8.2) g/dL Albumin 4.1 (3.5-5.0) g/dL Urine Color STRAW (YELLOW) Urine Appearance CLEAR (CLEAR) Urine pH 8.0 (5-6) Ur Specific [place] 1.005 (1.005-1.025) Urine Protein NEGATIVE (Negative) Urine Ketones NEGATIVE (NEGATIVE) Urine Blood NEGATIVE (0-5) Benji/ul Urine Nitrite NEGATIVE (NEGATIVE) Urine Bilirubin NEGATIVE (NEGATIVE) Urine Urobilinogen NEGATIVE (0-1) mg/dL Ur Leukocyte Esterase SMALL (NEGATIVE) Urine WBC (Auto) 3-5 (0-5) /HPF Urine RBC (Auto) NONE (0-2) /HPF U Epithel Cells (Auto) NONE (FEW) /HPF Urine Bacteria (Auto) RARE (NEGATIVE) /HPF Urine Mucus (Auto) SLIGHT (NEGATIVE) /HPF Urine Culture Reflexed NO (NO) Urine Glucose 50 (NEGATIVE) mg/dL - Progress Progress: improved Progress Note: 08/14/19 03:31 pt has no more tremors of right upper extremity and can rotate head and walk without difficulty. Counseled pt/family regarding: lab results, rad results - Departure Departure Disposition: Home Clinical Impression: neck pain, tremors of right upper extremity Condition: Stable Critical Care Time: No Referrals: JOVI OLIVEIRA MD [Primary Care Provider] - Instructions: Generalized Neck Pain (DC) Additional Instructions: Follow up with private doctor tomorrow. Wear soft c-collar for 2 weeks only while awake.
[2019-08-14 01:59] LABS: Absolute Neutrophil Ct (ANC) 5.96 (1.4-6.9); BASOPHIL % 1.4 % (0.0-0.4); Basophil (Absolute #) 0.13 (0-0.4); Eosinophil % 3.6 % (0.00-5.0); Eosinophil (Absolute #) 0.33 (0-0.5); Hematocrit 30.8 % (35-47); Hemoglobin 10.2 gm/dl (12.0-16.0); Lymphocyte (Absolute #) 1.89 (1.0-4.6); Lymphocytes % 20.3 % (24.0-44.0); Mean Cell Volume 93.9 fl (78-100); Mean Corpuscular Hemoglobin 31.1 pg (26-32); Mean Corpuscular Hgb Concent. 33.1 g/dl (32-36); Mean Platelet Volume 8.7 fl (7.5-11.0); Monocyte (Absolute #) 0.98 (0.0-1.3); Monocytes % 10.5 % (0.0-12.0); Neutrophil % 64.2 % (36.0-66.0); Platelet Count 492 K/mm3 (150-450); Red Blood Count 3.28 M/mm3 (4.1-5.4); White Blood Count 9.3 K/mm3 (4.0-10.5)
[2019-08-14 02:09] LABS: ALBUMIN 4.1 g/dL (3.5-5.0); ALKALINE PHOSPHATASE 71 U/L (38-126); ANION GAP 15.1 MEQ/L (5-15); BLOOD UREA NITROGEN 19 mg/dL (7-17); CHLORIDE 102 mmol/L (98-107); Calcium 9.7 mg/dL (8.4-10.2); Carbon Dioxide 25 mmol/L (22-30); Creatinine 1 0.84 mg/dL (0.52-1.04); Glucose 178 mg/dL (74-106); MAGNESIUM 1.8 mg/dL (1.6-2.3); Potassium 3.8 mmol/L (3.5-5.1); SGOT/AST 27 U/L (14-36); SGPT/ALT 16 U/L (0-35); SODIUM 138 mmol/L (137-145); Total Protein 7.8 g/dL (6.3-8.2)
[2019-08-14 02:20] VITALS: PULSE 93
[2019-08-14 02:44] LABS: Appearance CLEAR (CLEAR); Bacteria RARE /HPF (NEGATIVE); Bilirubin NEGATIVE (NEGATIVE); Blood NEGATIVE Ery/ul (0-5); Glucose 50 mg/dL (NEGATIVE); Ketones NEGATIVE (NEGATIVE); Leukocyte Esterase SMALL (NEGATIVE); Mucus SLIGHT /HPF (NEGATIVE); Nitrite NEGATIVE (NEGATIVE); Protein,Urine Dip NEGATIVE (Negative); Specific Gravity 1.005 (1.005-1.025); Urobilinogen NEGATIVE mg/dL (0-1)
[2019-08-14] MEDS ORDERED: NORCO 5/325 MG PO ONE (03:26)
[2019-08-14] MEDS ORDERED: NORCO 5/325 MG ONE (03:28)
[2019-08-14 03:45] VITALS: BP 143/66; O2SAT 93
--- NOTE | 2019-08-14 09:01 | XRAY ---
Indication: Right extremity tremors and decreased range of motion. Hypertension. Multiple contiguous axial images obtained through the head without contrast. Comparison: April 10, 2019. Continued age-appropriate global atrophy and moderate periventricular degenerative micro-ischemia bilaterally. No acute intracranial hemorrhage, abnormal extra-axial fluid collection, or mass effect. Fourth ventricle is midline without hydrocephalus. Bony calvarium intact. Visualized paranasal sinuses and mastoid air cells are clear. Impression: Stable nonacute senile brain. Comment: Preliminary interpretation was made by [facility]. No critical discrepancy.
--- NOTE | 2019-08-14 09:09 | XRAY ---
Indication: Right neck pain/lump. Right extremity tremors and decreased range of motion. Hypertension. Multiple contiguous axial images obtained through the neck without contrast as ordered. Sagittal and coronal reformatted images obtained. Comparison: None Patient is edentulous. Right parotid gland demonstrates 7 mm intraparotid lymph node. Submandibular glands are bilaterally symmetric. No pathologic cervical or supraclavicular lymphadenopathy. Moderate left carotid calcifications. There has been right carotid endarterectomy. 3 mm benign-appearing right thyroid chunky calcification. Supra and infraglottic airway widely patent. Normal epiglottis. Underlying cervical spine intact with osteopenia and mild dextroscoliosis. Lung apices demonstrates minimal fibrosis/scarring bilaterally. Partially visualized left cardiac pacer leads. CT head reported separately. Impression: 1. Benign-appearing right thyroid calcification, small right intraparotid lymph node, and chronic bony findings. 2. Remaining CT neck without contrast exam is negative. Comment: Preliminary interpretation was made by [facility]. No critical discrepancy.
== END 2019-08-14 03:44 | disposition home or self-care (01) ==
LOC: ED 00:42
DX: M54.2 Cervicalgia (principal); R25.1 Tremor, unspecified; I10 Essential (primary) hypertension; I25.10 Atherosclerotic heart disease of native coronary artery without angina pectoris; E11.9 Type 2 diabetes mellitus without complications; Z79.899 Other long term (current) drug therapy; Z95.0 Presence of cardiac pacemaker
CPT/HCPCS: 36415; 70450; 70490; 80053; 81001; 83735; 85025; 99284; L0120; A9270-GY

== ENCOUNTER 2019-08-25 01:18 | Emergency (ER) | payer MEDICARE, BC ==
[2019-08-25] MEDS ORDERED: DELTASONE 20 MG PO ONE (01:56)
[2019-08-25] MEDS ORDERED: DELTASONE 20 MG ONE (02:00)
--- NOTE | 2019-08-25 02:04 | ERPHSYRPT ---
- History of Present Illness Time Seen by Provider: 08/25/19 01:58 Source: patient, family Exam Limitations: no limitations Patient Subjective Stated Complaint: states that pt has had increased swelling in ANA wrist, rt knee and rt ankle, states that pt has RA and dementia, spouse states that pt finish antibiotics on monday for infection on neck, spouse states that pt can not lift her arm or push herself up off the toliet, spouse states that pt has increased shaking to both arms Triage Nursing Assessment: pt came into er via wheelchair, pt is axo x1, confused, drowsy, tremor present in rt arm, edema present in ana wrist, no edema present in RLE, hypertensive, pt unable to raise arms with out yelling out in pain, c/o neck pain, 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 Has noted sudden swelling also of right leg which has not happened before - no sob but has swelling all over and HX CAD so will also check cardiac labs. also for DVT. no current CP or SObreath but has general swelling which could indicate renal or CHF problem THere is no focal neurologic finding but does have hx of carotid blockage - no CVA but has dementia and tremor for years - no known parkinsons diagnosis yet ; Timing/Duration: week(s) Severity: moderate Modifying Factors: Improves With: movement Allergies/Adverse Reactions: No Known Drug Allergies Allergy (Verified 08/25/19 01:48) Home Medications: Amlodipine Besylate 10 mg PO DAILY 07/04/17 [History] Fenofibrate Nanocrystallized [Fenofibrate] 48 mg PO BID 07/04/17 [History] Glimepiride 2 mg PO DAILY 07/04/17 [History] Metformin HCl 500 mg PO BID 07/04/17 [History] Metoprolol Tartrate 50 mg [Lopressor 50 MG] 50 mg PO BID 07/04/17 [History ] NPH, Human Insulin Isophane [Humulin N] 20 units SQ HS 07/04/17 [History] Clopidogrel Bisulfate [Clopidogrel] 75 mg PO DAILY 08/14/19 [History] Folic Acid 1 mg [Folate 1 mg] 1 mg PO DAILY 08/14/19 [History] Hydrochlorothiazide 12.5 mg PO DAILY 08/14/19 [History] Isosorbide Mononitrate [Isosorbide Mononitrate ER] 30 mg PO DAILY 08/14/19 [ History] Latanoprost 1 drop OP HS 08/14/19 [History] Losartan Potassium 100 mg PO DAILY 08/14/19 [History] Amiodarone HCl 200 mg [Cordarone 200 MG] 200 mg PO DAILY 08/25/19 [History ] Donepezil HCl [Aricept] 2.5 mg PO HS 08/25/19 [History] Hx Tetanus, Diphtheria Vaccination/Date Given: No Hx Influenza Vaccination/Date Given: Yes Hx Pneumococcal Vaccination/Date Given: Yes Travel Risk - International Travel Have you traveled outside of the country in past 3 weeks: No (N) Have you or anyone close to you been diagnosed with or: No Do your reside in a community with a known COVID-19 case?: Yes If Yes where:: [facility] - Coronavirus Screening Has patient experienced Coronavirus symptoms: Yes Symptoms experienced: muscle pain, weakness - Review of Systems Constitutional: Weakness, No Fever, No Chills Eyes: No Symptoms Ears, Nose, & Throat: No Symptoms Respiratory: No Cough, No Dyspnea Cardiac: No Chest Pain, No Edema, No Syncope Abdominal/Gastrointestinal: No Abdominal Pain, No Nausea, No Vomiting, No Diarrhea Genitourinary Symptoms: No Dysuria Musculoskeletal: Joint Pain, Joint Swelling, No Back Pain, No Neck Pain, No Injury Skin: No Cellulitis, No Rash, No Skin Lesions Neurological: Tremors (general), No Dizziness, No Focal Weakness, No Sensory Changes Psychological: No Symptoms Endocrine: No Symptoms All Other Systems: Reviewed and Negative - Past Medical History Pertinent Past Medical History: Yes Neurological History: Dementia Cardiac History: Angina, Coronary Artery Disease, Hypertension Endocrine Medical History: Diabetes Type II Female Reproductive Disorders: Abnormal Uterine Bleeding Other Medical History: DIABETIC - Past Surgical History Past Surgical History: Yes Cardiac: Pacemaker Female Surgical History: Hysterectomy Other Surgical History: 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,COLON SURGERIES "YEARS AND YEARS AGO " - Social History Smoking Status: Former smoker Exposure to second hand smoke: No Drug Use: none Patient Lives Alone: No - Female History Hx Now: No - Nursing Vital Signs Nursing Vital Signs: Initial Vital Signs Temperature 97.9 F 08/25/19 01:27 Pulse Rate 80 08/25/19 01:27 Respiratory Rate 13 08/25/19 01:27 Blood Pressure 153/62 08/25/19 01:27 O2 Sat by Pulse Oximetry 94 L 08/25/19 01:27 Pain Scale Pain Intensity 6 - Physical Exam General Appearance: no apparent distress, alert Eye Exam: PERRL/EOMI, eyes nml inspection Ears, Nose, Throat Exam: normal ENT inspection, TMs normal, pharynx normal, moist mucous membranes Neck Exam: normal inspection, non-tender, supple, full range of motion Respiratory Exam: normal breath sounds, lungs clear, No respiratory distress Cardiovascular Exam: regular rate/rhythm, normal heart sounds, normal peripheral pulses Gastrointestinal/Abdomen Exam: soft, normal bowel sounds, No tenderness, No mass Pelvic Exam: deferred Rectal Exam: deferred Back Exam: normal inspection, normal range of motion, No CVA tenderness, No vertebral tenderness Extremity Exam: normal range of motion, pelvis stable, joint swelling Neurologic Exam: alert, oriented x 3, cooperative, normal mood/affect, nml cerebellar function, nml station & gait, sensation nml, No motor deficits Skin Exam: normal color, warm, dry, No rash Lymphatic Exam: No adenopathy SpO2: 94 - Course Nursing assessment & vital signs reviewed: Yes EKG Interpreted by Me: Non-specific ST Changes, Other (pacemaker) - Radiology Exams Chest X-ray Interpretation: Reviewed by me, Other (no discrete infiltrates - diffuse fibrosis) - Radiology Ultrasound Exam Right Venous Lower Extremity Ultrasound: negative (by tech report no DVT) Ordered Tests: Active Orders 24 hr Category Date Time Status EKG-ER Only STAT Care 08/25/19 01:52 Active Isolation, Initiate & Maintain Q4H Care 08/25/19 01:47 Active CHEST 1 VIEW (PORTABLE) Stat Exams 08/25/19 01:53 Taken VENOUS UNILAT/LIMITED EXTREMIT [US] Stat Exams 08/25/19 01:52 Taken CBC W DIFF Stat Lab 08/25/19 02:29 Completed CMP Stat Lab 08/25/19 02:29 Completed Lactic Acid Stat Lab 08/25/19 02:25 Completed NT PRO BNP Routine Lab 08/25/19 02:29 Completed SED RATE [Erythrocyte Sedimentation Rate] Stat Lab 08/25/19 02:29 Completed T4 (Thyroxine) Stat Lab 08/25/19 02:29 Completed TROPONIN Q3H Lab 08/25/19 02:29 Completed TROPONIN Q3H Lab 08/25/19 05:00 Ordered TROPONIN Q3H Lab 08/25/19 08:00 Ordered TROPONIN Q3H Lab 08/25/19 11:00 Ordered TROPONIN Q3H Lab 08/25/19 14:00 Ordered TSH, 3RD Generation Stat Lab 08/25/19 02:29 Completed UA W/RFX UR CULTURE Stat Lab 08/25/19 02:47 Completed Medication Summary Discontinued Medications Generic Name Dose Route Start Last Admin Trade Name Freq PRN Reason Stop Dose Admin Prednisone 40 mg 08/25/19 01:56 08/25/19 02:01 Deltasone 20 Mg PO 08/25/19 01:57 40 mg STAT ONE Administration Prednisone Confirm 08/25/19 02:00 Deltasone 20 Mg Administered 08/25/19 02:01 Dose 40 mg .ROUTE .Docphin-Boloco ONE Lab/Rad Data: Laboratory Result Diagrams 08/25/19 02:29 08/25/19 02:29 Laboratory Results 08/25/19 08/25/19 08/25/19 Range/Units 02:47 02:29 02:29 WBC (4.0-10.5) K/mm3 RBC (4.1-5.4) M/mm3 Hgb (12.0-16.0) gm/dl Hct (35-47) % MCV (78-100) fl MCH (26-32) pg MCHC (32-36) g/dl RDW (11.5-14.0) % Plt Count (150-450) K/mm3 MPV (7.5-11.0) fl Gran % (36.0-66.0) % Eos # (Auto) (0-0.5) Absolute Lymphs (auto) (1.0-4.6) Absolute Monos (auto) (0.0-1.3) Lymphocytes % (24.0-44.0) % Monocytes % (0.0-12.0) % Eosinophils % (0.00-5.0) % Basophils % (0.0-0.4) % Absolute Granulocytes (1.4-6.9) Basophils # (0-0.4) ESR > 140 H (0-20) mm/hr Sodium (137-145) mmol/L Potassium (3.5-5.1) mmol/L Chloride (98-107) mmol/L Carbon Dioxide (22-30) mmol/L Anion Gap (5-15) MEQ/L BUN (7-17) mg/dL Creatinine (0.52-1.04) mg/dL Estimated GFR ML/MIN Glucose (74-106) mg/dL Lactic Acid (0.4-2.0) Calcium (8.4-10.2) mg/dL Total Bilirubin (0.2-1.3) mg/dL AST (14-36) U/L ALT (0-35) U/L Alkaline Phosphatase (38-126) U/L Troponin I < 0.012 (0.000-0.034) ng/mL NT-Pro-B Natriuret Pep 337 (0-1800) pg/mL Serum Total Protein (6.3-8.2) g/dL Albumin (3.5-5.0) g/dL Thyroxine (T4) (5.53-10.96) ug/dL TSH 3rd Generation (0.47-4.68) mIU/L Urine Color STRAW (YELLOW) Urine Appearance CLEAR (CLEAR) Urine pH 7.0 (5-6) Ur Specific [place] 1.003 (1.005-1.025) Urine Protein NEGATIVE (Negative) Urine Ketones NEGATIVE (NEGATIVE) Urine Blood NEGATIVE (0-5) Benji/ul Urine Nitrite NEGATIVE (NEGATIVE) Urine Bilirubin NEGATIVE (NEGATIVE) Urine Urobilinogen NEGATIVE (0-1) mg/dL Ur Leukocyte Esterase NEGATIVE (NEGATIVE) Urine WBC (Auto) NONE (0-5) /HPF Urine RBC (Auto) NONE SEEN (0-2) /HPF U Epithel Cells (Auto) NONE (FEW) /HPF Urine Bacteria (Auto) NONE SEEN (NEGATIVE) /HPF Urine Culture Reflexed NO (NO) Urine Glucose NEGATIVE (NEGATIVE) mg/dL 08/25/19 08/25/19 08/25/19 Range/Units 02:29 02:29 02:25 WBC 11.9 H (4.0-10.5) K/mm3 RBC 3.22 L (4.1-5.4) M/mm3 Hgb 9.7 L (12.0-16.0) gm/dl Hct 29.9 L (35-47) % MCV 92.9 (78-100) fl MCH 30.1 (26-32) pg MCHC 32.4 (32-36) g/dl RDW 15.7 H (11.5-14.0) % Plt Count 442 (150-450) K/mm3 MPV 8.7 (7.5-11.0) fl Gran % 74.8 H (36.0-66.0) % Eos # (Auto) 0.32 (0-0.5) Absolute Lymphs (auto) 1.68 (1.0-4.6) Absolute Monos (auto) 0.92 (0.0-1.3) Lymphocytes % 14.1 L (24.0-44.0) % Monocytes % 7.7 (0.0-12.0) % Eosinophils % 2.7 (0.00-5.0) % Basophils % 0.7 (0.0-0.4) % Absolute Granulocytes 8.88 H (1.4-6.9) Basophils # 0.08 (0-0.4) ESR (0-20) mm/hr Sodium 137 (137-145) mmol/L Potassium 3.8 (3.5-5.1) mmol/L Chloride 100 (98-107) mmol/L Carbon Dioxide 25 (22-30) mmol/L Anion Gap 15.0 (5-15) MEQ/L BUN 14 (7-17) mg/dL Creatinine 0.90 (0.52-1.04) mg/dL Estimated GFR > 60.0 ML/MIN Glucose 167 H (74-106) mg/dL Lactic Acid 1.3 (0.4-2.0) Calcium 9.6 (8.4-10.2) mg/dL Total Bilirubin 0.40 (0.2-1.3) mg/dL AST 16 (14-36) U/L ALT 11 (0-35) U/L Alkaline Phosphatase 67 (38-126) U/L Troponin I (0.000-0.034) ng/mL NT-Pro-B Natriuret Pep (0-1800) pg/mL Serum Total Protein 7.4 (6.3-8.2) g/dL Albumin 3.8 (3.5-5.0) g/dL Thyroxine (T4) 10.2 (5.53-10.96) ug/dL TSH 3rd Generation 4.750 H (0.47-4.68) mIU/L Urine Color (YELLOW) Urine Appearance (CLEAR) Urine pH (5-6) Ur Specific [place] (1.005-1.025) Urine Protein (Negative) Urine Ketones (NEGATIVE) Urine Blood (0-5) Benji/ul Urine Nitrite (NEGATIVE) Urine Bilirubin (NEGATIVE) Urine Urobilinogen (0-1) mg/dL Ur Leukocyte Esterase (NEGATIVE) Urine WBC (Auto) (0-5) /HPF Urine RBC (Auto) (0-2) /HPF U Epithel Cells (Auto) (FEW) /HPF Urine Bacteria (Auto) (NEGATIVE) /HPF Urine Culture Reflexed (NO) Urine Glucose (NEGATIVE) mg/dL - Progress Progress: improved, re-examined Progress Note: 08/25/19 02:45 hgb 9.7 was 10.2 on the 8th, so similar. 08/25/19 03:46 discussed findings with pt and - she feels that she can manage ADLs at home and prefers this to admission and furhter w/u Tx in hospital; and has the capacity to make this choice Counseled pt/family regarding: lab results, diagnosis, need for follow-up, rad results - Departure Departure Disposition: Home Clinical Impression: RA flare, Chronic anemia, thyroid fluctuation, Tremor Condition: Good Critical Care Time: No Referrals: JOVI OLIVEIRA MD [Primary Care Provider] - Instructions: Rheumatoid Arthritis, Hypothyroidism (Underactive Thyroid) (DC), Anemia of Chronic Disease, Parkinson Disease (DC) Additional Instructions: You have an elevated sed rate often seen with a flare of Rheumatoid arthitis , but other things may cause this as well. We will restart a moderate dose of prednisone which should help this. BUt is best adjusted for treatment by your s and RHeum specialist. THis may also affect your Diabetes so check glucose carefully. THe white blood count is also elevated and may be seen with this but should also be followed up with your Dr. to consider infection or other causes. ( may even be related to your recent treatment of infection) You have anemia at a similar level to that found on recent previous blood tests and is often a part of RA and other chronic disease but again is best rechecked by your Dr. THe Thyroid may be having low output and should be rechecked by your Dr. You could also have Parkinsons or another neurologic condition to be diagnosed by your neurologist , but we are giving you information on that although we have not yet formally diagnosed Parkinsons. Return meantime or anytime you need to for pain control or weakness or any other concerns.
[2019-08-25 02:38] LABS: Absolute Neutrophil Ct (ANC) 8.88 (1.4-6.9); BASOPHIL % 0.7 % (0.0-0.4); Basophil (Absolute #) 0.08 (0-0.4); Eosinophil % 2.7 % (0.00-5.0); Eosinophil (Absolute #) 0.32 (0-0.5); Hematocrit 29.9 % (35-47); Hemoglobin 9.7 gm/dl (12.0-16.0); Lymphocyte (Absolute #) 1.68 (1.0-4.6); Lymphocytes % 14.1 % (24.0-44.0); Mean Cell Volume 92.9 fl (78-100); Mean Corpuscular Hemoglobin 30.1 pg (26-32); Mean Corpuscular Hgb Concent. 32.4 g/dl (32-36); Mean Platelet Volume 8.7 fl (7.5-11.0); Monocyte (Absolute #) 0.92 (0.0-1.3); Monocytes % 7.7 % (0.0-12.0); Neutrophil % 74.8 % (36.0-66.0); Platelet Count 442 K/mm3 (150-450); Red Blood Count 3.22 M/mm3 (4.1-5.4); Red Cell Distribution Width 15.7 % (11.5-14.0); White Blood Count 11.9 K/mm3 (4.0-10.5)
[2019-08-25 02:51] LABS: Appearance CLEAR (CLEAR); Bilirubin NEGATIVE (NEGATIVE); Blood NEGATIVE Ery/ul (0-5); Glucose NEGATIVE (NEGATIVE); Ketones NEGATIVE (NEGATIVE); Leukocyte Esterase NEGATIVE (NEGATIVE); Nitrite NEGATIVE (NEGATIVE); Protein,Urine Dip NEGATIVE (Negative); Specific Gravity 1.003 (1.005-1.025); Urobilinogen NEGATIVE mg/dL (0-1)
[2019-08-25 02:57] LABS: Bacteria NONE SEEN /HPF (NEGATIVE); RBC NONE SEEN /HPF (0-2)
[2019-08-25 03:02] LABS: NT PRO BNP 337 pg/mL (0-1800)
[2019-08-25 03:07] LABS: TROPONIN < 0.012 ng/mL (0.000-0.034)
[2019-08-25 03:15] LABS: ALBUMIN 3.8 g/dL (3.5-5.0); ALKALINE PHOSPHATASE 67 U/L (38-126); BLOOD UREA NITROGEN 14 mg/dL (7-17); CHLORIDE 100 mmol/L (98-107); Calcium 9.6 mg/dL (8.4-10.2); Carbon Dioxide 25 mmol/L (22-30); Glucose 167 mg/dL (74-106); Potassium 3.8 mmol/L (3.5-5.1); SGOT/AST 16 U/L (14-36); SGPT/ALT 11 U/L (0-35); SODIUM 137 mmol/L (137-145); T4 (Thyroxine) 10.2 ug/dL (5.53-10.96); Total Protein 7.4 g/dL (6.3-8.2)
[2019-08-25 03:43] VITALS: O2SAT 94
[2019-08-25 03:53] VITALS: BP 141/52; PULSE 85
--- NOTE | 2019-08-25 07:52 | XRAY ---
Indication: Right leg swelling. 2-dimensional sonogram and color Doppler imaging of the major venous vessels of the right leg was performed. Comparison: None No thrombus seen in the examined deep venous vessels of the right leg including greater saphenous vein. Veins demonstrate normal compressibility. Venous waveforms are normal with and without augmentation. Impression: Right leg negative for DVT. Comment: Preliminary report was given.
--- NOTE | 2019-08-25 08:02 | XRAY ---
Indication: Lower extremity edema. Comparison: July 04, 2017. Portable chest remains hyperinflated and clear again with a few incidental calcified granulomas. Heart is not enlarged again with left sided pacemaker. Bony thorax intact again with mild osteopenia and degenerative changes. Impression: Continued nonacute chest with chronic features.
== END 2019-08-25 04:05 | disposition home or self-care (01) ==
LOC: ED 01:18
DX: M06.9 Rheumatoid arthritis, unspecified (principal); D53.9 Nutritional anemia, unspecified; R94.6 Abnormal results of thyroid function studies; R25.1 Tremor, unspecified; I25.10 Atherosclerotic heart disease of native coronary artery without angina pectoris; I10 Essential (primary) hypertension; E11.9 Type 2 diabetes mellitus without complications; F03.90 Unspecified dementia, unspecified severity, without behavioral disturbance, psychotic disturbance, mood disturbance, and anxiety; M54.2 Cervicalgia; M79.601 Pain in right arm; Z79.4 Long term (current) use of insulin
CPT/HCPCS: 36415; 71045; 80053; 81001; 83605; 83880; 84436; 84443; 84484; 85025; 85652; 93005; 93971; 99284; A9270-GY

== ENCOUNTER 2020-09-28 12:51 | Inpatient (IN) | payer MEDICARE, BC ==
[2020-09-28 13:30] LABS: Absolute Neutrophil Ct (ANC) 8.95 (1.4-6.9); BASOPHIL % 0.6 % (0.0-0.4); Basophil (Absolute #) 0.07 (0-0.4); Eosinophil % 0.9 % (0.00-5.0); Hemoglobin 11.2 gm/dl (12.0-16.0); Lymphocyte (Absolute #) 1.08 (1.0-4.6); Mean Cell Volume 98.4 fl (78-100); Mean Corpuscular Hemoglobin 30.6 pg (26-32); Mean Corpuscular Hgb Concent. 31.1 g/dl (32-36); Mean Platelet Volume 8.8 fl (7.5-11.0); Monocyte (Absolute #) 0.59 (0.0-1.3); Monocytes % 5.5 % (0.0-12.0); Platelet Count 467 K/mm3 (150-450); Red Blood Count 3.66 M/mm3 (4.1-5.4); Red Cell Distribution Width 16.7 % (11.5-14.0); White Blood Count 10.8 K/mm3 (4.0-10.5)
[2020-09-28 13:31] LABS: Appearance CLEAR (CLEAR); Bilirubin NEGATIVE (NEGATIVE); Blood NEGATIVE Ery/ul (0-5); Glucose 50 mg/dL (NEGATIVE); Ketones NEGATIVE (NEGATIVE); Leukocyte Esterase TRACE (NEGATIVE); Nitrite NEGATIVE (NEGATIVE); Protein,Urine Dip NEGATIVE (Negative); Specific Gravity 1.006 (1.005-1.025); Urobilinogen NEGATIVE mg/dL (0-1); WBC 0-2 /HPF (0-5)
[2020-09-28 13:58] LABS: ALBUMIN 4.5 g/dL (3.5-5.0); ANION GAP 12.6 MEQ/L (5-15); BILIRUBIN,TOTAL 0.4 mg/dL (0.2-1.3); Calcium 9.6 mg/dL (8.4-10.2); Creatinine 1 1.05 mg/dL (0.52-1.04); EST GLOMERULAR FILTRATION RATE 52.8 ML/MIN; MAGNESIUM 1.9 mg/dL (1.6-2.3); Potassium 4.5 mmol/L (3.5-5.1); Total Protein 7.5 g/dL (6.3-8.2)
--- NOTE | 2020-09-28 16:17 | ERPHSYRPT ---
- History of Present Illness Time Seen by Provider: 09/28/20 12:55 Historian: patient Exam Limitations: no limitations Patient Subjective Stated Complaint: Pt states that she is having palpatations and that it feels like her heart is skipping a beat, pt is on amiodorone for an arrythmia and she took one approx 30 minutes ago and has been coughing since Triage Nursing Assessment: Pt brought to the ER by her , placed on 2L NC due to oxygen dropping to 89%, denies pain, has a pacemaker, pt states that when the palpatations started her cough started and it's nonstop, no edema, pulses normal Physician History: Patient is a 85-year-old female presents to our ED for evaluation of heart palpitations. Symptoms started today. Patient states that she has a history of cardiac dysrhythmias and currently on amiodarone. Patient is not sure she dysrhythmia she has. Patient took amiodarone just 30 minutes prior to arrival. Patient states shortly after taking the amiodarone she developed a cough. Patient currently has a dry intermittent cough. Upon arrival to our ED patient was mildly hypoxic at 89%. Patient placed on 2 L nasal cannula. Patient denies stephanie chest pain. No nausea vomiting or diaphoresis. Symptoms are mild to moderate in intensity. No specific worsening improving factors. Patient voices no other complaints or concerns at this time. Timing/Duration: today Activities at Onset: none Quality: other (Heart palpitations.) Location: substernal Chest Pain Radiation: no radiation Severity of Pain-Max: moderate Severity of Pain-Current: mild Associated Symptoms: shortness of breath Prior Chest Pain/Cardiac Workup: no prior chest pain Nitro Today/Relief: no nitro taken today Aspirin Treatment Today: no aspirin today Allergies/Adverse Reactions: No Known Drug Allergies Allergy (Verified 09/28/20 13:00) Home Medications: Amlodipine Besylate 10 mg PO DAILY 07/04/17 [History] Fenofibrate Nanocrystallized [Fenofibrate] 48 mg PO DAILY 07/04/17 [History] Metformin HCl 500 mg PO BID 07/04/17 [History] Metoprolol Tartrate 50 mg [Lopressor 50 MG] 50 mg PO BID 07/04/17 [History] NPH, Human Insulin Isophane [Humulin N] 18 units SQ QAM 07/04/17 [History] Clopidogrel Bisulfate [Clopidogrel] 75 mg PO 1200 08/14/19 [History] Folic Acid 1 mg [Folate 1 mg] 1 mg PO DAILY 08/14/19 [History] Hydrochlorothiazide 12.5 mg PO DAILY 08/14/19 [History] Isosorbide Mononitrate [Isosorbide Mononitrate ER] 30 mg PO DAILY 08/14/19 [History] Losartan Potassium 100 mg PO HS 08/14/19 [History] Amiodarone HCl 200 mg [Cordarone 200 MG] 200 mg PO 1200 08/25/19 [History] Aspirin 81 mg PO DAILY 09/28/20 [History] Glimepiride 2 mg [Amaryl 2 MG] 2 mg PO DAILY 09/28/20 [History] Magnesium Oxide [Magnesium] 400 mg PO 1200 09/28/20 [History] Memantine HCl [Memantine HCl ER] 14 mg PO HS 09/28/20 [History] Methotrexate Sodium [Methotrexate] 2.5 mg PO WEEKLY 09/28/20 [History] Multivitamin W-Minerals/Lutein [Centrum Silver Tablet] 1 each PO 1200 09/28/20 [History] Prednisone 5 mg [Deltasone 5 mg] 5 mg PO DAILY 09/28/20 [History] Ubidecarenone [Co Q-10] 0 mg PO 1200 09/28/20 [History] Hx Tetanus, Diphtheria Vaccination/Date Given: No Hx Influenza Vaccination/Date Given: Yes Hx Pneumococcal Vaccination/Date Given: Yes Travel Risk - International Travel Have you traveled outside of the country in past 3 weeks: No - Coronavirus Screening Are you exhibiting any of the following symptoms?: No Close contact with a COVID-19 positive Pt in past 14-21 Days: No - Vaccine Status Have you recieved a Covid-19 vaccination: Yes 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: [employer] - Vaccination Dates Date of 2cond Vaccination (if applicable): 06/27/2020 - Review of Systems Constitutional: No Symptoms, No Fever, No Chills Eyes: No Symptoms Ears, Nose, & Throat: No Symptoms Respiratory: No Symptoms, No Cough, No Dyspnea Cardiac: No Symptoms, No Chest Pain, No Edema, No Syncope Abdominal/Gastrointestinal: No Symptoms, No Abdominal Pain, No Nausea, No Vomiting, No Diarrhea Genitourinary Symptoms: No Symptoms, No Dysuria Musculoskeletal: No Symptoms, No Back Pain, No Neck Pain Skin: No Symptoms, No Rash Neurological: No Symptoms, No Dizziness, No Focal Weakness, No Sensory Changes Psychological: No Symptoms Endocrine: No Symptoms Hematologic/Lymphatic: No Symptoms Immunological/Allergic: No Symptoms All Other Systems: Reviewed and Negative - Past Medical History Pertinent Past Medical History: Yes Neurological History: Dementia Cardiac History: Angina, Coronary Artery Disease, Hypertension Endocrine Medical History: Diabetes Type II Female Reproductive Disorders: Abnormal Uterine Bleeding Other Medical History: . - Past Surgical History Past Surgical History: Yes Cardiac: Pacemaker Female Surgical History: Hysterectomy Other Surgical History: 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,COLON SURGERIES "YEARS AND YEARS AGO" - Social History Smoking Status: Former smoker Exposure to second hand smoke: No Drug Use: none Patient Lives Alone: No - Female History Hx Now: No - Nursing Vital Signs Nursing Vital Signs: Initial Vital Signs Temperature 98.5 F 09/28/20 12:51 Pulse Rate 72 09/28/20 12:51 Respiratory Rate 16 09/28/20 12:51 Blood Pressure 144/54 09/28/20 12:51 O2 Sat by Pulse Oximetry 92 L 09/28/20 12:51 Pain Scale Pain Intensity 0 - Physical Exam General Appearance: no apparent distress, alert Eye Exam: PERRL/EOMI, eyes nml inspection Ears, Nose, Throat Exam: normal ENT inspection, moist mucous membranes Neck Exam: normal inspection, non-tender, supple, full range of motion Respiratory Exam: normal breath sounds, lungs clear, No respiratory distress Cardiovascular Exam: regular rate/rhythm, normal heart sounds Gastrointestinal/Abdomen Exam: soft, No tenderness, No mass Back Exam: normal inspection, No CVA tenderness, No vertebral tenderness Extremity Exam: normal inspection, normal range of motion Neurologic Exam: alert, oriented x 3, cooperative, normal mood/affect, sensation nml, No motor deficits Skin Exam: normal color, warm, dry SpO2 Interpretation: normal SpO2: 91 O2 Delivery: Nasal Cannula - Course Nursing assessment & vital signs reviewed: Yes EKG Interpreted by Me: RATE (65 ventricular paced rhythm.) - CT Exams Chest CT Interpretation: Discussed w/radiologist, Tele-radiologist Report (No PE, borderline cardiomegaly, pulmonary fibrosis/scarring hiatal hernia granulomatous disease) Ordered Tests: Active Orders 24 hr Category Date Time Status Bedrest ROUTINE Activity 09/28/20 21:37 Active Spinner Tender STAT Care 09/28/20 13:13 Completed Code Status Order ROUTINE Care 09/28/20 21:37 Active EKG-ER Only STAT Care 09/28/20 13:12 Completed IV Care Q6H Care 09/28/20 21:37 Active IV Insertion STAT Care 09/28/[address] in Observation ROUTINE Care 09/28/20 21:37 Active Pulse Oximetry (ED) STAT Care 09/28/20 13:12 Completed [place] ROUTINE Care 09/28/20 21:37 Active Weight,Daily Q24H Care 09/28/20 21:37 Active Consistent Carbohydrate Diet 1800 Calorie Diet 09/28/20 Breakfast Active CHEST WITH CONTRAST [CT] Stat Exams 09/28/20 16:03 Completed BLOOD CULTURE Stat Lab 09/28/20 18:24 Received CBC AM.LAB Lab 09/29/20 05:00 Completed CBC W DIFF Stat Lab 09/28/20 13:12 Completed CMP AM.LAB Lab 09/29/20 05:00 Completed CMP Stat Lab 09/28/20 13:30 Completed D-DIMER QUANTITATIVE Stat Lab 09/28/20 13:12 Completed MAGNESIUM Stat Lab 09/28/20 13:30 Completed NT PRO BNP Stat Lab 09/28/20 13:30 Completed TROPONIN Q3H Lab 09/28/20 13:30 Completed TROPONIN Q3H Lab 09/28/20 16:16 Completed TROPONIN Q3H Lab 09/28/20 18:18 Completed TROPONIN Q3H Lab 09/28/20 22:45 Completed UA W/RFX UR CULTURE Stat Lab 09/28/20 13:28 Completed Pulse Oximetry CONTINUOUS RT 09/28/20 21:37 Active Respiratory Therapy Assessment DAILY RT 09/28/20 18:05 Completed Medication Summary Generic Name Dose Route Start Last Admin Trade Name Freq PRN Reason Stop Dose Admin Insulin Human NPH 18 unit 09/29/20 08:00 Novolin N SQ 10/29/20 07:59 AMINSULIN MONE Losartan Potassium 100 mg 09/29/20 22:00 09/28/20 22:57 Cozaar 50 Mg PO 10/29/20 21:59 100 mg HS MONE Administration Memantine 14 mg 09/29/20 22:00 09/28/20 22:58 Namenda 5 Mg PO 10/29/20 21:59 14 mg HS MONE Administration Metformin HCl 500 mg 09/28/20 22:00 09/28/20 22:57 Glucophage 500 Mg PO 10/28/20 21:59 500 mg BIDWM MONE Administration Metoprolol Tartrate 50 mg 09/28/20 22:00 09/28/20 22:57 Lopressor 50 Mg PO 10/28/20 21:59 50 mg BID MONE Administration Discontinued Medications Generic Name Dose Route Start Last Admin Trade Name Mark PRN Reason Stop Dose Admin Albuterol Sulfate 2.5 mg 09/28/20 17:55 09/28/20 18:07 Proventil 2.5 Mg/3 Ml Neb IH 09/28/20 17:56 2.5 mg STAT ONE Administration Albuterol Sulfate Confirm 09/28/20 18:04 Proventil 2.5 Mg/3 Ml Neb Administered 09/28/20 18:05 Dose 2.5 mg IH .STK-MED ONE Albuterol Sulfate 2.5 mg 09/28/20 23:00 Proventil 2.5 Mg/3 Ml Neb IH 10/28/20 22:59 Q4HRT MONE Losartan Potassium Confirm 09/28/20 22:53 Cozaar 50 Mg Administered 09/28/20 22:54 Dose 50 mg .ROUTE .STK-MED ONE Losartan Potassium Confirm 09/28/20 23:04 Cozaar 50 Mg Administered 09/28/20 23:05 Dose 50 mg .ROUTE .STK-MED ONE Memantine Confirm 09/28/20 22:54 Namenda 5 Mg Administered 09/28/20 22:55 Dose 15 mg .ROUTE .STK-MED ONE Methylprednisolone Sodium Succinate 125 mg 09/28/20 17:55 09/28/20 18:51 Solu-Medrol 125 Mg IV 09/28/20 17:56 125 mg STAT ONE Administration Methylprednisolone Sodium Succinate Confirm 09/28/20 18:47 Solu-Medrol 125 Mg Administered 09/28/20 18:48 Dose 125 mg .ROUTE .STK-MED ONE Lab/Rad Data: Laboratory Result Diagrams 09/28/20 13:12 09/28/20 13:30 Laboratory Results 09/28/20 09/28/20 09/28/20 Range/Units 19:21 18:18 16:16 WBC (4.0-10.5) K/mm3 RBC (4.1-5.4) M/mm3 Hgb (12.0-16.0) gm/dl Hct (35-47) % MCV (78-100) fl MCH (26-32) pg MCHC (32-36) g/dl RDW (11.5-14.0) % Plt Count (150-450) K/mm3 MPV (7.5-11.0) fl Gran % (36.0-66.0) % Eos # (Auto) (0-0.5) Absolute Lymphs (auto) (1.0-4.6) Absolute Monos (auto) (0.0-1.3) Lymphocytes % (24.0-44.0) % Monocytes % (0.0-12.0) % Eosinophils % (0.00-5.0) % Basophils % (0.0-0.4) % Absolute Granulocytes (1.4-6.9) Basophils # (0-0.4) D-Dimer (215-500) ng/mL Sodium (137-145) mmol/L Potassium (3.5-5.1) mmol/L Chloride (98-107) mmol/L Carbon Dioxide (22-30) mmol/L Anion Gap (5-15) MEQ/L BUN (7-17) mg/dL Creatinine (0.52-1.04) mg/dL Estimated GFR ML/MIN Glucose (74-106) mg/dL Calcium (8.4-10.2) mg/dL Magnesium (1.6-2.3) mg/dL Total Bilirubin (0.2-1.3) mg/dL AST (14-36) U/L ALT (0-35) U/L Alkaline Phosphatase (38-126) U/L Troponin I < 0.012 < 0.012 (0.000-0.034) ng/mL NT-Pro-B Natriuret Pep (0-1800) pg/mL Serum Total Protein (6.3-8.2) g/dL Albumin (3.5-5.0) g/dL Urine Color (YELLOW) Urine Appearance (CLEAR) Urine pH (5-6) Ur Specific [place] (1.005-1.025) Urine Protein (Negative) Urine Ketones (NEGATIVE) Urine Blood (0-5) Benji/ul Urine Nitrite (NEGATIVE) Urine Bilirubin (NEGATIVE) Urine Urobilinogen (0-1) mg/dL Ur Leukocyte Esterase (NEGATIVE) Urine WBC (Auto) (0-5) /HPF Urine RBC (Auto) (0-2) /HPF U Epithel Cells (Auto) (FEW) /HPF Urine Bacteria (Auto) (NEGATIVE) /HPF Urine Culture Reflexed (NO) Urine Glucose (NEGATIVE) mg/dL Influenza Type A Ag NEGATIVE (NEGATIVE) Influenza Type B Ag NEGATIVE (NEGATIVE) RSV (PCR) NEGATIVE (Negative) SARS-CoV-2 (PCR) NEGATIVE (NEGATIVE) 09/28/20 09/28/20 09/28/20 Range/Units 13:30 13:30 13:28 WBC (4.0-10.5) K/mm3 RBC (4.1-5.4) M/mm3 Hgb (12.0-16.0) gm/dl Hct (35-47) % MCV (78-100) fl MCH (26-32) pg MCHC (32-36) g/dl RDW (11.5-14.0) % Plt Count (150-450) K/mm3 MPV (7.5-11.0) fl Gran % (36.0-66.0) % Eos # (Auto) (0-0.5) Absolute Lymphs (auto) (1.0-4.6) Absolute Monos (auto) (0.0-1.3) Lymphocytes % (24.0-44.0) % Monocytes % (0.0-12.0) % Eosinophils % (0.00-5.0) % Basophils % (0.0-0.4) % Absolute Granulocytes (1.4-6.9) Basophils # (0-0.4) D-Dimer (215-500) ng/mL Sodium 132 L (137-145) mmol/L Potassium 4.5 (3.5-5.1) mmol/L Chloride 96 L (98-107) mmol/L Carbon Dioxide 28 (22-30) mmol/L Anion Gap 12.6 (5-15) MEQ/L BUN 17 (7-17) mg/dL Creatinine 1.05 H (0.52-1.04) mg/dL Estimated GFR 52.8 ML/MIN Glucose 125 H (74-106) mg/dL Calcium 9.6 (8.4-10.2) mg/dL Magnesium 1.9 (1.6-2.3) mg/dL Total Bilirubin 0.40 (0.2-1.3) mg/dL AST 21 (14-36) U/L ALT 16 (0-35) U/L Alkaline Phosphatase 58 (38-126) U/L Troponin I < 0.012 (0.000-0.034) ng/mL NT-Pro-B Natriuret Pep 1070 (0-1800) pg/mL Serum Total Protein 7.5 (6.3-8.2) g/dL Albumin 4.5 (3.5-5.0) g/dL Urine Color STRAW (YELLOW) Urine Appearance CLEAR (CLEAR) Urine pH 8.0 (5-6) Ur Specific [place] 1.006 (1.005-1.025) Urine Protein NEGATIVE (Negative) Urine Ketones NEGATIVE (NEGATIVE) Urine Blood NEGATIVE (0-5) Benji/ul Urine Nitrite NEGATIVE (NEGATIVE) Urine Bilirubin NEGATIVE (NEGATIVE) Urine Urobilinogen NEGATIVE (0-1) mg/dL Ur Leukocyte Esterase TRACE (NEGATIVE) Urine WBC (Auto) 0-2 (0-5) /HPF Urine RBC (Auto) NONE (0-2) /HPF U Epithel Cells (Auto) NONE (FEW) /HPF Urine Bacteria (Auto) NONE (NEGATIVE) /HPF Urine Culture Reflexed NO (NO) Urine Glucose 50 (NEGATIVE) mg/dL Influenza Type A Ag (NEGATIVE) Influenza Type B Ag (NEGATIVE) RSV (PCR) (Negative) SARS-CoV-2 (PCR) (NEGATIVE) 09/28/20 09/28/20 Range/Units 13:12 13:12 WBC 10.8 H (4.0-10.5) K/mm3 RBC 3.66 L (4.1-5.4) M/mm3 Hgb 11.2 L (12.0-16.0) gm/dl Hct 36.0 (35-47) % MCV 98.4 (78-100) fl MCH 30.6 (26-32) pg MCHC 31.1 L (32-36) g/dl RDW 16.7 H (11.5-14.0) % Plt Count 467 H (150-450) K/mm3 MPV 8.8 (7.5-11.0) fl Gran % 83.0 H (36.0-66.0) % Eos # (Auto) 0.10 (0-0.5) Absolute Lymphs (auto) 1.08 (1.0-4.6) Absolute Monos (auto) 0.59 (0.0-1.3) Lymphocytes % 10.0 L (24.0-44.0) % Monocytes % 5.5 (0.0-12.0) % Eosinophils % 0.9 (0.00-5.0) % Basophils % 0.6 (0.0-0.4) % Absolute Granulocytes 8.95 H (1.4-6.9) Basophils # 0.07 (0-0.4) D-Dimer 599 H* (215-500) ng/mL Sodium (137-145) mmol/L Potassium (3.5-5.1) mmol/L Chloride (98-107) mmol/L Carbon Dioxide (22-30) mmol/L Anion Gap (5-15) MEQ/L BUN (7-17) mg/dL Creatinine (0.52-1.04) mg/dL Estimated GFR ML/MIN Glucose (74-106) mg/dL Calcium (8.4-10.2) mg/dL Magnesium (1.6-2.3) mg/dL Total Bilirubin (0.2-1.3) mg/dL AST (14-36) U/L ALT (0-35) U/L Alkaline Phosphatase (38-126) U/L Troponin I (0.000-0.034) ng/mL NT-Pro-B Natriuret Pep (0-1800) pg/mL Serum Total Protein (6.3-8.2) g/dL Albumin (3.5-5.0) g/dL Urine Color (YELLOW) Urine Appearance (CLEAR) Urine pH (5-6) Ur Specific [place] (1.005-1.025) Urine Protein (Negative) Urine Ketones (NEGATIVE) Urine Blood (0-5) Benji/ul Urine Nitrite (NEGATIVE) Urine Bilirubin (NEGATIVE) Urine Urobilinogen (0-1) mg/dL Ur Leukocyte Esterase (NEGATIVE) Urine WBC (Auto) (0-5) /HPF Urine RBC (Auto) (0-2) /HPF U Epithel Cells (Auto) (FEW) /HPF Urine Bacteria (Auto) (NEGATIVE) /HPF Urine Culture Reflexed (NO) Urine Glucose (NEGATIVE) mg/dL Influenza Type A Ag (NEGATIVE) Influenza Type B Ag (NEGATIVE) RSV (PCR) (Negative) SARS-CoV-2 (PCR) (NEGATIVE) - Progress Progress: improved Air Movement: good Progress Note: 09/29/20 06:56 Patient reassessed. She feels much better. We will admit to Dr. Garcia for hypoxia. Troponin negative x2. Coronavirus negative. Borderline cardiomegaly, pulmonary fibrosis hiatal hernia granulomatous disease. Plan of care discussed with patient. She agrees to admission at [facility] for further evaluation and treatment. Blood Culture(s) Obtained: No Antibiotics given: No Discussed with : Jannette Will see patient in: hospital (observation) Counseled pt/family regarding: lab results, diagnosis, rad results - Departure Departure Disposition: Observation Clinical Impression: Hypoxia, Cough, Cardiomegaly, Pulmonary fibrosis, Hiatal hernia, Granulomatous disease Condition: Stable Critical Care Time: No
--- NOTE | 2020-09-28 17:07 | XRAY ---
Indication: Elevated d-dimer. Multiple contiguous axial images obtained through the chest using 100 cc Isovue-370 contrast and PE protocol. Comparison: May 15, 2007. There is satisfactory opacification of the pulmonary arteries to include the lobar and segmental branches. No pulmonary embolus. Heart is borderline enlarged with new mitral valve calcifications and new left dual-lead pacemaker. Aorta demonstrating increasing moderate scattered arteriosclerotic disease without aneurysm/dissection. No pathologic mediastinal/hilar lymphadenopathy. Stable small hiatal hernia. Lungs again demonstrates mild bilateral dependent atelectasis, bilateral upper lobe calcified granuloma, and scattered fibrosis/scarring greatest in both lower lobes. No suspicious pulmonary mass, infiltrate, or effusion. Bony thorax intact again with osteopenia and mild degenerative changes throughout the spine. Limited upper abdomen demonstrates a few splenic calcified granulomas. Impression: 1. Continued negative pulmonary embolus. 2. Borderline cardiomegaly without CHF. 3. Stable scattered fibrosis/scarring, small hiatal hernia, and old granulomatous disease.
[2020-09-28] MEDS ORDERED: PROVENTIL 2.5 MG/3 ML NEB IH ONE ×2 (17:55→18:04)
[2020-09-28] MEDS ORDERED: solu-MEDROL 125 MG IV ONE (17:55)
[2020-09-28] MEDS ORDERED: solu-MEDROL 125 MG ONE (18:47)
[2020-09-28 20:16] LABS: INFLUENZA A NEGATIVE (NEGATIVE); INFLUENZA B NEGATIVE (NEGATIVE); RESPIRATORY SYNCTIAL VIRUS NEGATIVE (Negative)
[2020-09-28] MEDS ORDERED: Cozaar 50 MG ONE ×2 (22:53→23:04)
[2020-09-28] MEDS ORDERED: Namenda 5 MG ONE (22:54)
[2020-09-28] MEDS: Cozaar 50 MG PO SCH (22:57)
[2020-09-28] MEDS: Lopressor 50 MG PO SCH (22:57)
[2020-09-28] MEDS: Glucophage 500 MG PO SCH (22:57)
[2020-09-28] MEDS ORDERED: PROVENTIL 2.5 MG/3 ML NEB IH SCH (23:00)
[2020-09-29 05:34] LABS: Hematocrit 35.7 % (35-47); Hemoglobin 11.2 gm/dl (12.0-16.0); Mean Cell Volume 97.8 fl (78-100); Mean Corpuscular Hemoglobin 30.7 pg (26-32); Mean Corpuscular Hgb Concent. 31.4 g/dl (32-36); Mean Platelet Volume 9.4 fl (7.5-11.0); Platelet Count 419 K/mm3 (150-450); Red Blood Count 3.65 M/mm3 (4.1-5.4); Red Cell Distribution Width 16.6 % (11.5-14.0); White Blood Count 6.9 K/mm3 (4.0-10.5)
[2020-09-29 06:13] LABS: ALBUMIN 4.1 g/dL (3.5-5.0); ANION GAP 16.5 MEQ/L (5-15); BILIRUBIN,TOTAL 0.3 mg/dL (0.2-1.3); Calcium 9.3 mg/dL (8.4-10.2); Creatinine 1 1.03 mg/dL (0.52-1.04); Potassium 4.6 mmol/L (3.5-5.1)
[2020-09-29] MEDS: Glucophage 500 MG PO SCH ×2 (08:41→17:00)
[2020-09-29] MEDS: Novolin N SQ SCH (08:42)
[2020-09-29] MEDS ORDERED: MEDICATION INTERVENTION PO SCH (09:30)
[2020-09-29] MEDS ORDERED: NON-FORMULARY ITEM (Aspirin [Aspirin] 81 MG) PO SCH (10:00)
[2020-09-29] MEDS: FOLATE 1 MG PO SCH (10:42)
[2020-09-29] MEDS: Namenda 5 MG PO SCH ×2 (10:42→21:06)
[2020-09-29] MEDS: ECOTRIN 81 MG PO SCH (10:42)
[2020-09-29] MEDS: DELTASONE 5 MG PO SCH (10:42)
[2020-09-29] MEDS: Amaryl 2 MG PO SCH (10:43)
[2020-09-29] MEDS: Tricor 145 MG PO SCH (10:43)
[2020-09-29] MEDS ORDERED: NON-FORMULARY ITEM (Magnesium Oxide [Magnesium] 400 MG) PO SCH (12:00)
[2020-09-29] MEDS ORDERED: NON-FORMULARY ITEM (Multivitamin W-Minerals/Lutein [Centrum Silver Tablet] 1 EACH) PO SCH (12:00)
[2020-09-29] MEDS ORDERED: UBIDECARENONE PO SCH (12:00)
[2020-09-29] MEDS: Lopressor 50 MG PO SCH ×2 (12:54→21:07)
[2020-09-29] MEDS: hydroDIURIL 25 MG PO SCH (12:54)
[2020-09-29] MEDS: Imdur 30 MG PO SCH (12:54)
[2020-09-29] MEDS: NORVASC 5 MG PO SCH (12:55)
[2020-09-29] MEDS: HUMALOG SQ PRN (13:06)
[2020-09-29] MEDS: THERAGRAN MULTIVITAMIN PO SCH (13:06)
[2020-09-29] MEDS: MAG-OX 400 PO SCH (13:06)
[2020-09-29] MEDS: Cordarone 200 MG PO SCH (13:06)
[2020-09-29] MEDS: PLAVIX 75 MG Tablet PO SCH (13:06)
--- NOTE | 2020-09-29 15:33 | PCM.HP ---
History of Present Illness - Chief Complaint Chief Complaint: palpitations History of Present Illness: is a 85 year old female seen and examined this am following ER admission for hypoxia. Patient is a mildly limited historian due to dementia. Patient reports she became acutely short of breath and that her gets panicked and made her come in to be evaluated. She states she has had a dry nagging cough. Patient reports she has progressively become more short of breath over the past couple of weeks. She reports fatigue and requires rest in between working on her usual tasks. She has a pacemaker. She denies lower extremity edema. She denies chest pain but does report occasional discomfort. She continues to have a mild dry cough. She otherwise has been feeling ok. She reports that she has been taking her medications as directed. She denies any other issues. - Review of Systems Constitutional: No Fever, No Fatigue, No Weakness Eyes: No Symptoms Ears, Nose, & Throat: No Symptoms Respiratory: Cough, Short Of Breath, No Wheezing Cardiac: No Chest Pain, No Edema, No Palpitations, No Syncope Abdominal/Gastrointestinal: No Abdominal Pain, No Nausea, No Vomiting, No Diarrhea, No Constipation Genitourinary Symptoms: No Symptoms Musculoskeletal: Joint Pain (hx of RA) Skin: No Symptoms Psychological: Memory Loss, No Alcohol Abuse, No Drug Abuse, No Anxiety, No Depression Medications & Allergies Home Medications: Home Medication List Amlodipine Besylate 10 mg PO DAILY 07/04/17 [History Confirmed 09/28/20] Fenofibrate Nanocrystallized [Fenofibrate] 48 mg PO DAILY 07/04/17 [History Confirmed 09/28/20] Metformin HCl 500 mg PO BID 07/04/17 [History Confirmed 09/28/20] Metoprolol Tartrate 50 mg [Lopressor 50 MG] 50 mg PO BID 07/04/17 [History Confirmed 09/28/20] NPH, Human Insulin Isophane [Humulin N] 24 units SQ QAM 07/04/17 [History Confirmed 09/30/20] Clopidogrel Bisulfate [Clopidogrel] 75 mg PO 1200 08/14/19 [History Confirmed 09/28/20] Folic Acid 1 mg [Folate 1 mg] 1 mg PO DAILY 08/14/19 [History Confirmed 09/28/20] Hydrochlorothiazide 12.5 mg PO DAILY 08/14/19 [History Confirmed 09/28/20] Isosorbide Mononitrate [Isosorbide Mononitrate ER] 30 mg PO DAILY 08/14/19 [History Confirmed 09/28/20] Losartan Potassium 100 mg PO HS 08/14/19 [History Confirmed 09/28/20] Amiodarone HCl 200 mg [Cordarone 200 MG] 200 mg PO 1200 08/25/19 [History Confirmed 09/28/20] Aspirin 81 mg PO DAILY 09/28/20 [History Confirmed 09/28/20] Glimepiride 2 mg [Amaryl 2 MG] 2 mg PO DAILY 09/28/20 [History Confirmed 09/28/20] Magnesium Oxide [Magnesium] 400 mg PO 1200 09/28/20 [History Confirmed 09/28/20] Memantine HCl [Memantine HCl ER] 14 mg PO HS 09/28/20 [History Confirmed 09/28/20] Methotrexate Sodium [Methotrexate] 2.5 mg PO WEEKLY 09/28/20 [History Confirmed 09/28/20] Multivitamin W-Minerals/Lutein [Centrum Silver Tablet] 1 each PO 1200 09/28/20 [History Confirmed 09/28/20] Ubidecarenone [Co Q-10] 0 mg PO 1200 09/28/20 [History Confirmed 09/28/20] Amox Tr/Potass Clav. 875 mg [Augmentin 875-125 Tablet] 875 mg PO BID 7 Days #14 tablet 10/02/20 [Rx] Prednisone 10 mg [Deltasone 10 mg] 10 mg PO DAILY #5 tablet 10/02/20 [Rx] Allergies/Adverse Reactions: Allergies Allergy/AdvReac Type Severity Reaction Status Date / Time No Known Drug Allergies Allergy Verified 09/28/20 13:00 - Past Medical History Past Medical History: Yes Neurological History: Dementia Cardiac History: Angina, Coronary Artery Disease, Hypertension Respiratory History: No Pertinent History Endocrine Medical History: Diabetes Type II Musculoskelatal History: No Pertinent History GI Medical History: No Pertinent History History: No Pertinent History Pyscho-Social History: No Pertinent History Reproductive Disorders: Abnormal Uterine Bleeding Comment: . - Female History Are you now?: No - Past Surgical History Past Surgical History: Yes Neuro Surgical History: No Pertinent History Cardiac History: Pacemaker Respiratory Surgery: No Pertinent History Female Surgical History: Hysterectomy Other Surgical History: 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,COLON SURGERIES "YEARS AND YEARS AGO" - Social History Smoking Status: Former smoker Exposure to second hand smoke: No Alcohol: None Drug Use: none - Physical Exam Vital Signs: Vital Signs - 24 hr Temp Pulse Resp BP Pulse Ox 09/29/20 12:00 98.3 F 65 16 117/53 98 09/29/20 09:10 95 09/29/20 07:30 98.1 F 65 18 115/51 94 L 09/29/20 06:56 91 L 09/29/20 04:00 98.3 F 67 20 117/53 92 L 09/29/20 00:00 93 L 09/28/20 21:47 97.8 F 65 18 150/68 93 L 09/28/20 21:43 97.8 F 65 18 150/68 93 L 09/28/20 21:37 97.8 F 65 18 150/68 93 L 09/28/20 21:00 65 16 129/83 94 L 09/28/20 20:16 98.5 F 65 14 145/71 94 L 09/28/20 18:07 65 25 H 93 L 09/28/20 17:00 65 18 110/62 96 09/28/20 16:07 65 16 145/63 91 L 09/28/20 15:29 65 18 121/59 90 L Oxygen-Last 24 hours Oxygen Flowrate (L/min)-RT 3 Oxygen Flowrate (L/min)-RT 3 General Appearance: no apparent distress, obese Neurologic Exam: alert, oriented x 3, cooperative, No normal mood/affect Eye Exam: No scleral icterus Ears, Nose, Throat Exam: moist mucous membranes Neck Exam: normal inspection Respiratory Exam: normal breath sounds, lungs clear, No respiratory distress, No diminished breath sounds, No crackles/rales, No wheezing Cardiovascular Exam: regular rate/rhythm, normal heart sounds, other (Patient has paced rhythm), No murmur, No friction rub, No gallop Gastrointestinal/Abdomen Exam: soft, normal bowel sounds, No tenderness, No dis tention, No mass, No guarding Pelvic Exam: not done Rectal Exam: not done Back Exam: normal inspection Extremity Exam: joint swelling (wrist joints), No pedal edema, No swelling, No tenderness Skin Exam: normal color, warm, dry, No rash, No pale Results - Labs Lab/Micro Results: Lab Results-Last 24 Hours 09/28/20 09/28/20 09/28/20 Range/Units 16:16 18:18 19:21 WBC (4.0-10.5) K/mm3 RBC (4.1-5.4) M/mm3 Hgb (12.0-16.0) gm/dl Hct (35-47) % MCV (78-100) fl MCH (26-32) pg MCHC (32-36) g/dl RDW (11.5-14.0) % Plt Count (150-450) K/mm3 MPV (7.5-11.0) fl Sodium (137-145) mmol/L Potassium (3.5-5.1) mmol/L Chloride (98-107) mmol/L Carbon Dioxide (22-30) mmol/L Anion Gap (5-15) MEQ/L BUN (7-17) mg/dL Creatinine (0.52-1.04) mg/dL Estimated GFR ML/MIN Glucose (74-106) mg/dL POC Glucometer (74 to 106) mg/dL Calcium (8.4-10.2) mg/dL Total Bilirubin (0.2-1.3) mg/dL AST (14-36) U/L ALT (0-35) U/L Alkaline Phosphatase (38-126) U/L Troponin I < 0.012 < 0.012 (0.000-0.034) ng/mL Serum Total Protein (6.3-8.2) g/dL Albumin (3.5-5.0) g/dL Influenza Type A Ag NEGATIVE (NEGATIVE) Influenza Type B Ag NEGATIVE (NEGATIVE) RSV (PCR) NEGATIVE (Negative) SARS-CoV-2 (PCR) NEGATIVE (NEGATIVE) 09/28/20 09/28/20 09/29/20 Range/Units 21:42 22:45 05:00 WBC 6.9 (4.0-10.5) K/mm3 RBC 3.65 L (4.1-5.4) M/mm3 Hgb 11.2 L (12.0-16.0) gm/dl Hct 35.7 (35-47) % MCV 97.8 (78-100) fl MCH 30.7 (26-32) pg MCHC 31.4 L (32-36) g/dl RDW 16.6 H (11.5-14.0) % Plt Count 419 (150-450) K/mm3 MPV 9.4 (7.5-11.0) fl Sodium (137-145) mmol/L Potassium (3.5-5.1) mmol/L Chloride (98-107) mmol/L Carbon Dioxide (22-30) mmol/L Anion Gap (5-15) MEQ/L BUN (7-17) mg/dL Creatinine (0.52-1.04) mg/dL Estimated GFR ML/MIN Glucose (74-106) mg/dL POC Glucometer 219 H (74 to 106) mg/dL Calcium (8.4-10.2) mg/dL Total Bilirubin (0.2-1.3) mg/dL AST (14-36) U/L ALT (0-35) U/L Alkaline Phosphatase (38-126) U/L Troponin I < 0.012 (0.000-0.034) ng/mL Serum Total Protein (6.3-8.2) g/dL Albumin (3.5-5.0) g/dL Influenza Type A Ag (NEGATIVE) Influenza Type B Ag (NEGATIVE) RSV (PCR) (Negative) SARS-CoV-2 (PCR) (NEGATIVE) 09/29/20 09/29/20 09/29/20 Range/Units 05:00 07:13 11:41 WBC (4.0-10.5) K/mm3 RBC (4.1-5.4) M/mm3 Hgb (12.0-16.0) gm/dl Hct (35-47) % MCV (78-100) fl MCH (26-32) pg MCHC (32-36) g/dl RDW (11.5-14.0) % Plt Count (150-450) K/mm3 MPV (7.5-11.0) fl Sodium 132 L (137-145) mmol/L Potassium 4.6 (3.5-5.1) mmol/L Chloride 97 L (98-107) mmol/L Carbon Dioxide 24 (22-30) mmol/L Anion Gap 16.5 H (5-15) MEQ/L BUN 19 H (7-17) mg/dL Creatinine 1.03 (0.52-1.04) mg/dL Estimated GFR 54.0 ML/MIN Glucose 293 H (74-106) mg/dL POC Glucometer 289 H 308 H (74 to 106) mg/dL Calcium 9.3 (8.4-10.2) mg/dL Total Bilirubin 0.30 (0.2-1.3) mg/dL AST 21 (14-36) U/L ALT 17 (0-35) U/L Alkaline Phosphatase 50 (38-126) U/L Troponin I (0.000-0.034) ng/mL Serum Total Protein 7.0 (6.3-8.2) g/dL Albumin 4.1 (3.5-5.0) g/dL Influenza Type A Ag (NEGATIVE) Influenza Type B Ag (NEGATIVE) RSV (PCR) (Negative) SARS-CoV-2 (PCR) (NEGATIVE) 09/29/20 Range/Units 14:45 WBC (4.0-10.5) K/mm3 RBC (4.1-5.4) M/mm3 Hgb (12.0-16.0) gm/dl Hct (35-47) % MCV (78-100) fl MCH (26-32) pg MCHC (32-36) g/dl RDW (11.5-14.0) % Plt Count (150-450) K/mm3 MPV (7.5-11.0) fl Sodium (137-145) mmol/L Potassium (3.5-5.1) mmol/L Chloride (98-107) mmol/L Carbon Dioxide (22-30) mmol/L Anion Gap (5-15) MEQ/L BUN (7-17) mg/dL Creatinine (0.52-1.04) mg/dL Estimated GFR ML/MIN Glucose (74-106) mg/dL POC Glucometer (74 to 106) mg/dL Calcium (8.4-10.2) mg/dL Total Bilirubin (0.2-1.3) mg/dL AST (14-36) U/L ALT (0-35) U/L Alkaline Phosphatase (38-126) U/L Troponin I < 0.012 (0.000-0.034) ng/mL Serum Total Protein (6.3-8.2) g/dL Albumin (3.5-5.0) g/dL Influenza Type A Ag (NEGATIVE) Influenza Type B Ag (NEGATIVE) RSV (PCR) (Negative) SARS-CoV-2 (PCR) (NEGATIVE) Accuchecks Date 09/29/20 Date 09/29/20 Date 09/28/20 Time 12:13 Time 07:30 Time 21:45 - Radiology Impressions Radiology Exams & Impressions: Radiology Procedures Category Date Time Status CHEST WITH CONTRAST [CT] Stat Exams 09/28/20 16:03 Completed - Other Procedures and Tests Respiratory Therapy 09/29/20 05:08 Oxygen Nasal Cannula 2 lpm Assessment/Plan (1) Hypoxia Status: Acute Assessment & Plan: Patient is requiring supplemental oxygen which is not baseline for her. CTA was neg for PE. No hx of copd or asthma. Most likely cardiac in nature. Will consult cardiology Code(s): R09.02 - HYPOXEMIA (2) Cough Status: Acute Assessment & Plan: Patient has new dry cough. She had CT scan that did not show any pneumonia but does show fibrosis and old granulomatous disease. Patient has been given tessalon perles for cough and her cough has improved. She also was given prot benito for underlying reflux that may be causing the cough. Code(s): R05 - COUGH (3) Dementia Status: Acute Assessment & Plan: Hx of dementia. Patient will continue with routine home meds. Code(s): F03.90 - UNSPECIFIED DEMENTIA WITHOUT BEHAVIORAL DISTURBANCE (4) Cardiomegaly Status: Acute Code(s): I51.7 - CARDIOMEGALY (5) Pulmonary fibrosis Status: Acute Assessment & Plan: Pulm fibrosis noted on CT Code(s): J84.10 - PULMONARY FIBROSIS, UNSPECIFIED
[2020-09-29] MEDS: Nitrostat 0.4 MG Tablet SL PRN ×2 (15:37→15:55)
[2020-09-29] MEDS ORDERED: MORPHINE SULFATE 2 MG INJ IV ONE ×2 (16:07→17:29)
[2020-09-29] MEDS: PROTONIX 40 MG IV IV SCH (21:06)
[2020-09-29] MEDS: Tessalon Perles 100 MG PO SCH (21:06)
[2020-09-29] MEDS: Cozaar 50 MG PO SCH (21:07)
[2020-09-29] MEDS: Voltaren GEL TOP SCH (21:41)
[2020-09-29] MEDS ORDERED: Namenda 5 MG PO SCH (22:00)
[2020-09-30] MEDS: Amaryl 2 MG PO SCH (09:11)
[2020-09-30] MEDS: Glucophage 500 MG PO SCH ×2 (09:11→16:33)
[2020-09-30] MEDS: Namenda 5 MG PO SCH ×2 (09:11→22:35)
[2020-09-30] MEDS: Tricor 145 MG PO SCH (09:12)
[2020-09-30] MEDS: FOLATE 1 MG PO SCH (09:12)
[2020-09-30] MEDS: ECOTRIN 81 MG PO SCH (09:12)
[2020-09-30] MEDS: Tessalon Perles 100 MG PO SCH ×3 (09:12→22:35)
[2020-09-30] MEDS: DELTASONE 5 MG PO SCH (09:12)
[2020-09-30] MEDS: Novolin N SQ SCH ×2 (09:52→11:53)
[2020-09-30] MEDS ORDERED: TREXALL 2.5 MG PO SCH (10:00)
[2020-09-30] MEDS: hydroDIURIL 25 MG PO SCH (10:21)
[2020-09-30] MEDS: NORVASC 5 MG PO SCH (10:22)
[2020-09-30] MEDS: Lopressor 50 MG PO SCH ×2 (10:22→22:35)
[2020-09-30] MEDS: Imdur 30 MG PO SCH (10:22)
--- NOTE | 2020-09-30 11:41 | PCM.NOTE ---
Date and Time: 09/30/20 1141 OBJECTIVE DATA Vital Signs: Vital Signs - 24 hr Temp Pulse Resp BP BP Pulse Ox 09/30/20 08:00 97.7 F 65 18 109/54 90 L 09/30/20 07:43 91 L 09/30/20 04:10 97.9 F 65 18 110/52 92 L 09/30/20 00:13 97.1 F 65 16 102/51 94 L 09/29/20 20:33 94 L 09/29/20 20:00 97.6 F 65 20 120/60 97 09/29/20 16:00 97.4 F 65 16 107/51 88 L 09/29/20 15:55 65 107/51 09/29/20 15:37 65 133/59 09/29/20 12:00 98.3 F 65 16 117/53 98 Pain Assessment - Last Documented Pain Intensity 0 Pain Scale Used 0-10 Pain Scale Intake and Output: Intake & Output 09/27/20 09/28/20 09/29/20 09/30/20 11:59 11:59 11:59 11:59 Intake Total 400 580 Output Total 400 1650 Balance 0 -1070 Weight 73 kg 73.2 kg Lab Results: Lab Results-Last 24 Hours 09/29/20 09/29/20 09/29/20 Range/Units 11:41 14:45 16:41 POC Glucometer 308 H 191 H (74 to 106) mg/dL Hemoglobin A1c (4.5-6.0) % Troponin I < 0.012 (0.000-0.034) ng/mL 09/29/20 09/30/20 09/30/20 Range/Units 21:02 08:32 08:33 POC Glucometer 206 H 137 H (74 to 106) mg/dL Hemoglobin A1c 7.12 H (4.5-6.0) % Troponin I (0.000-0.034) ng/mL Radiology Exams: Radiology Procedures Category Date Time Status CHEST WITH CONTRAST [CT] Stat Exams 09/28/20 16:03 Completed ECHO W/2D AND DOPPLER [US] Stat Exams 09/30/20 15:56 Ordered Multi-Disciplinary Progress Notes: Multi-Disciplinary Progress Notes 09/30/20 11:07 Case Management Note by Nettie Richards S/W - HE CONTINUES TO DENY ANY NEW NEEDS REGARDING DC AT THIS TIME. WILL CONTINUE TO FOLLOW IN CASE PATIENT NEED HOME OXYGEN AT TIME OF DC Initialized on 09/30/20 11:07 - END OF NOTE Assessment/Plan (1) Cough Status: Acute Code(s): R05 - COUGH (2) Hypoxia Status: Acute Code(s): R09.02 - HYPOXEMIA
[2020-09-30] MEDS: MAG-OX 400 PO SCH (11:52)
[2020-09-30] MEDS: THERAGRAN MULTIVITAMIN PO SCH (11:52)
[2020-09-30] MEDS: PLAVIX 75 MG Tablet PO SCH (11:52)
[2020-09-30] MEDS: Cordarone 200 MG PO SCH (11:52)
[2020-09-30] MEDS: Voltaren GEL TOP SCH ×2 (11:52→22:36)
[2020-09-30 12:35] LABS: ANION GAP 12.1 MEQ/L (5-15); BILIRUBIN,TOTAL 0.2 mg/dL (0.2-1.3); Calcium 9.2 mg/dL (8.4-10.2); Creatinine 1 1.3 mg/dL (0.52-1.04); EST GLOMERULAR FILTRATION RATE 41.3 ML/MIN; Potassium 4.5 mmol/L (3.5-5.1); Total Protein 6.7 g/dL (6.3-8.2)
[2020-09-30] MEDS: HUMALOG SQ PRN (17:56)
[2020-09-30] MEDS: Cozaar 50 MG PO SCH (22:30)
[2020-09-30] MEDS: PROTONIX 40 MG IV IV SCH (22:35)
[2020-10-01 07:57] LABS: Absolute Neutrophil Ct (ANC) 5.98 (1.4-6.9); BASOPHIL % 0.5 % (0.0-0.4); Basophil (Absolute #) 0.05 (0-0.4); Eosinophil (Absolute #) 0.18 (0-0.5); Hematocrit 34.1 % (35-47); Hemoglobin 10.5 gm/dl (12.0-16.0); Lymphocyte (Absolute #) 2.21 (1.0-4.6); Lymphocytes % 24.2 % (24.0-44.0); Mean Cell Volume 99.1 fl (78-100); Mean Corpuscular Hemoglobin 30.5 pg (26-32); Mean Corpuscular Hgb Concent. 30.8 g/dl (32-36); Mean Platelet Volume 9.3 fl (7.5-11.0); Monocytes % 7.7 % (0.0-12.0); Neutrophil % 65.6 % (36.0-66.0); Platelet Count 422 K/mm3 (150-450); Red Blood Count 3.44 M/mm3 (4.1-5.4); Red Cell Distribution Width 16.8 % (11.5-14.0); White Blood Count 9.1 K/mm3 (4.0-10.5)
[2020-10-01] MEDS: Novolin N SQ SCH (08:20)
[2020-10-01] MEDS: hydroDIURIL 25 MG PO SCH (09:27)
[2020-10-01] MEDS: NORVASC 5 MG PO SCH (09:27)
[2020-10-01] MEDS: Lopressor 50 MG PO SCH ×2 (09:27→21:45)
[2020-10-01] MEDS: Imdur 30 MG PO SCH (09:27)
[2020-10-01] MEDS: FOLATE 1 MG PO SCH (09:35)
[2020-10-01] MEDS: Tricor 145 MG PO SCH (09:35)
[2020-10-01] MEDS: Tessalon Perles 100 MG PO SCH ×3 (09:36→21:44)
[2020-10-01] MEDS: Namenda 5 MG PO SCH ×2 (09:36→21:44)
[2020-10-01] MEDS: ECOTRIN 81 MG PO SCH (09:36)
[2020-10-01] MEDS: Glucophage 500 MG PO SCH ×2 (09:36→16:25)
[2020-10-01] MEDS: Amaryl 2 MG PO SCH (09:36)
[2020-10-01] MEDS: DELTASONE 5 MG PO SCH (09:36)
[2020-10-01] MEDS: Voltaren GEL TOP SCH ×2 (09:37→21:45)
[2020-10-01 09:43] LABS: ANION GAP 12.7 MEQ/L (5-15); Calcium 9.2 mg/dL (8.4-10.2); Creatinine 1 1.19 mg/dL (0.52-1.04); EST GLOMERULAR FILTRATION RATE 45.7 ML/MIN; Potassium 4.1 mmol/L (3.5-5.1)
[2020-10-01] MEDS: Cordarone 200 MG PO SCH (11:43)
[2020-10-01] MEDS: THERAGRAN MULTIVITAMIN PO SCH (11:43)
[2020-10-01] MEDS: MAG-OX 400 PO SCH (11:43)
[2020-10-01] MEDS: PLAVIX 75 MG Tablet PO SCH (11:43)
--- NOTE | 2020-10-01 16:27 | XRAY ---
Indication: Short of breath and cough. Pulmonary fibrosis. Comparison: October 25, 2019. Portable chest again hyperinflated with new minimal blunting both costophrenic angles favoring tiny pleural effusions and new minimal right base subsegmental atelectasis. Remaining heart and lungs unremarkable again with incidental calcified granulomas and left dual-lead pacemaker.
--- NOTE | 2020-10-01 17:27 | PCM.NOTE ---
Date and Time: 10/01/20 1722 Subjective Assessment: Patient reports she continues to have dry non productive cough. She reports she continues to have chest discomfort. Appetite is normal and tolerating PO well. Patient denies choking or aspirating when she started having the coughing fit prior to going to ER. She denies any other concerns this am. Patient's at bedside this am. - Review of Systems Constitutional: No Symptoms Eyes: No Symptoms Ears, Nose, & Throat: No Symptoms Respiratory: Cough, No Wheezing Cardiac: Other (chest discomfort patient has pacemaker/defib), No Edema, No Palpitations, No Syncope Abdominal/Gastrointestinal: No Abdominal Pain, No Nausea, No Vomiting, No Diarrhea, No Hematochezia, No Melena, No Dysphagia, No Appetite Changes Genitourinary Symptoms: No Symptoms Musculoskeletal: Joint Pain (Hx of RA) Skin: No Symptoms Neurological: No Headache Psychological: Memory Loss, No Alcohol Abuse, No Drug Abuse, No Anxiety, No Depression Objective Exam General Appearance: no apparent distress, alert, No anxiety Neurologic Exam: alert, cooperative, normal mood/affect, other (memory loss), No agitation, No depressed mood/affect Skin Exam: normal color, warm, dry, No rash, No pale Eye Exam: eyes nml inspection Ears, Nose, Throat Exam: moist mucous membranes Respiratory Exam: normal breath sounds, lungs clear, other (persistent cough), No chest tenderness, No respiratory distress, No crackles/rales, No wheezing Cardiovascular Exam: regular rate/rhythm (pacemaker/def), No murmur, No friction rub, No gallop Gastrointestinal/Abdomen Exam: soft, normal bowel sounds, No tenderness, No distention Extremity Exam: normal inspection, No pedal edema, No swelling Pelvic Exam: deferred Rectal Exam: deferred OBJECTIVE DATA Vital Signs: Vital Signs - 24 hr Temp Pulse Resp BP Pulse Ox 10/01/20 16:00 97.7 F 65 18 106/53 90 L 10/01/20 12:00 97.9 F 65 17 89/48 97 10/01/20 07:44 97.9 F 65 18 114/56 93 L 10/01/20 07:40 97 10/01/20 04:00 98.0 F 65 14 106/51 95 10/01/20 00:00 96.4 F 65 12 91/64 97 09/30/20 20:13 92 L 09/30/20 20:00 97.2 F 65 16 133/63 92 L Oxygen-Last 24 hours Oxygen Flowrate (L/min)-RT 3 Oxygen Flowrate (L/min)-RT 3 Oxygen Flowrate (L/min)-RT 3 Pain Assessment - Last Documented Pain Intensity 0 Pain Scale Used 0-10 Pain Scale Intake and Output: Intake & Output 09/29/20 09/30/20 10/01/20 10/02/20 11:59 11:59 11:59 11:59 Intake Total 400 580 820 180 Output Total 400 1650 600 Balance 0 -1070 220 180 Weight 73 kg 73.2 kg 73.2 kg Lab Results: Lab Results-Last 24 Hours 09/30/20 10/01/20 10/01/20 Range/Units 20:57 07:10 07:10 WBC 9.1 (4.0-10.5) K/mm3 RBC 3.44 L (4.1-5.4) M/mm3 Hgb 10.5 L (12.0-16.0) gm/dl Hct 34.1 L (35-47) % MCV 99.1 (78-100) fl MCH 30.5 (26-32) pg MCHC 30.8 L (32-36) g/dl RDW 16.8 H (11.5-14.0) % Plt Count 422 (150-450) K/mm3 MPV 9.3 (7.5-11.0) fl Gran % 65.6 (36.0-66.0) % Eos # (Auto) 0.18 (0-0.5) Absolute Lymphs (auto) 2.21 (1.0-4.6) Absolute Monos (auto) 0.70 (0.0-1.3) Lymphocytes % 24.2 (24.0-44.0) % Monocytes % 7.7 (0.0-12.0) % Eosinophils % 2.0 (0.00-5.0) % Basophils % 0.5 (0.0-0.4) % Absolute Granulocytes 5.98 (1.4-6.9) Basophils # 0.05 (0-0.4) Sodium 137 (137-145) mmol/L Potassium 4.1 (3.5-5.1) mmol/L Chloride 100 (98-107) mmol/L Carbon Dioxide 28 (22-30) mmol/L Anion Gap 12.7 (5-15) MEQ/L BUN 32 H (7-17) mg/dL Creatinine 1.19 H (0.52-1.04) mg/dL Estimated GFR 45.7 ML/MIN Glucose 89 (74-106) mg/dL POC Glucometer 125 H (74 to 106) mg/dL Calcium 9.2 (8.4-10.2) mg/dL 10/01/20 10/01/20 10/01/20 Range/Units 07:11 11:26 16:25 WBC (4.0-10.5) K/mm3 RBC (4.1-5.4) M/mm3 Hgb (12.0-16.0) gm/dl Hct (35-47) % MCV (78-100) fl MCH (26-32) pg MCHC (32-36) g/dl RDW (11.5-14.0) % Plt Count (150-450) K/mm3 MPV (7.5-11.0) fl Gran % (36.0-66.0) % Eos # (Auto) (0-0.5) Absolute Lymphs (auto) (1.0-4.6) Absolute Monos (auto) (0.0-1.3) Lymphocytes % (24.0-44.0) % Monocytes % (0.0-12.0) % Eosinophils % (0.00-5.0) % Basophils % (0.0-0.4) % Absolute Granulocytes (1.4-6.9) Basophils # (0-0.4) Sodium (137-145) mmol/L Potassium (3.5-5.1) mmol/L Chloride (98-107) mmol/L Carbon Dioxide (22-30) mmol/L Anion Gap (5-15) MEQ/L BUN (7-17) mg/dL Creatinine (0.52-1.04) mg/dL Estimated GFR ML/MIN Glucose (74-106) mg/dL POC Glucometer 88 138 H 360 H (74 to 106) mg/dL Calcium (8.4-10.2) mg/dL Radiology Exams: Radiology Procedures Category Date Time Status CHEST 1 VIEW (PORTABLE) Urgent Exams 10/01/20 15:30 Completed ECHO W/2D AND DOPPLER [US] Stat Exams 09/30/20 15:56 Taken Multi-Disciplinary Progress Notes: Multi-Disciplinary Progress Notes 10/01/20 10:20 Case Management Note by Nettie Richards PER PRIMARY RN- DR. OLIVEIRA CONTINUES TO PLAN TO TRANSFER PATIENT TO HIGHER LEVEL OF CARE WHEN BED AVAILABLE. S/W 09/30- HE CONTINUED TO DENY ANY NEW NEEDS BESIDES OXYGEN IF PATIENT UNABLE TO WEAN PRIOR TO DC Initialized on 10/01/20 10:20 - END OF NOTE Assessment/Plan (1) Hypoxia Current Visit: Yes Status: Acute Assessment & Plan: Unclear cause. Patient has continued to require oxygen which is not baseline. They have attempted to ween patient off but she continues to desat. She was neg for PE. She had chest xray today that is showing pleural effusions and atelectasis. Patient was found to be mildly anemic. Patient had echo which did not show signficant cause for hypoxia. Cardio consulted plan was to transfer but no available bed. Dr Yoon is aware. He recommended pulm consult as well. Pulm recommended steroids and he would see patient tomorrow. Cardiology recommended adding antibiotics Code(s): R09.02 - HYPOXEMIA (2) Cough Current Visit: Yes Status: Acute Assessment & Plan: Patient is on tessalon perles which has helped cough some. Pulm will see her tomorrow. Code(s): R05 - COUGH (3) Dementia Current Visit: Yes Status: Acute Assessment & Plan: Will continue routine home meds. Code(s): F03.90 - UNSPECIFIED DEMENTIA WITHOUT BEHAVIORAL DISTURBANCE (4) Granulomatous disease Current Visit: Yes Status: Acute Code(s): D71 - FUNCTIONAL DISORDERS OF POLYMORPHONUCLEAR NEUTROPHILS (5) Pulmonary fibrosis Current Visit: Yes Status: Acute Assessment & Plan: Pulm has been consulted. Code(s): J84.10 - PULMONARY FIBROSIS, UNSPECIFIED (6) Chronic anemia Current Visit: No Status: Acute Assessment & Plan: Patient has chronic anemia however she had a drop in her hgb non dilutional. Occult stool ordered. Will continue to trend labs. Code(s): D64.9 - ANEMIA, UNSPECIFIED (7) Rheumatoid arthritis Current Visit: Yes Status: Acute Assessment & Plan: Hx of RA will continue home meds. Code(s): M06.9 - RHEUMATOID ARTHRITIS, UNSPECIFIED
[2020-10-01] MEDS: Sodium Chloride 0.9% 1000 ML 1,000 ML IV SCH (17:37)
[2020-10-01] MEDS: solu-MEDROL 40 MG IV SCH (17:38)
[2020-10-01] MEDS: HUMALOG SQ PRN (17:38)
[2020-10-01] MEDS: ROCEPHIN 1 Gm-D5w 50 ml Bag** 1 G/50 ML IVPB IV SCH (17:38)
[2020-10-01] MEDS: PROTONIX 40 MG IV IV SCH (21:44)
[2020-10-01] MEDS: Cozaar 50 MG PO SCH (21:45)
[2020-10-02] MEDS: solu-MEDROL 40 MG IV SCH ×2 (00:57→08:39)
--- NOTE | 2020-10-02 08:14 | ECHO ---
DATE OF PROCEDURE: 09/30/2020 CLINICAL INFORMATION: Chest pain and palpitations. The M-mode 2D, and Doppler echocardiogram including color flow Doppler shows the left ventricle is normal in size at 4.2 cm. There is no thrombus present. The septal wall thickness is increased at 1.6 cm. The left ventricular posterior wall thickness is increased at 1.3 cm. There is normal contractility of the left ventricle. The ejection fraction is calculated to be 87%. The mitral valve E to A inflow velocity ratio is decreased at 0.94 consistent with possible impaired left ventricular relaxation. The right ventricle is grossly normal. The left atrium is normal at 3.8 cm. The interatrial septum is intact. The right atrium is normal. The aortic valve opens well. There is no aortic regurgitation. There is mitral valve calcification associated with mild to moderate mitral regurgitation. There is mild to moderate tricuspid regurgitation. The right ventricular systolic pressure is elevated at 46 mm of Mercury. There is mild pulmonic regurgitation. The aortic root is normal at 3.2 cm. There is no pericardial effusion present. IMPRESSION: 1) NORMAL CONTRACTILITY OF THE LEFT VENTRICLE. 2) POSSIBLE IMPAIRED LEFT VENTRICULAR RELAXATION. 3) MODERATE ASYMMETRIC LEFT VENTRICULAR HYPERTROPHY. 4) MILD TO MODERATE TRICUSPID REGURGITATION. 5) MODERATE PULMONARY HYPERTENSION. 6) MILD TO MODERATE MITRAL REGURGITATION. 7) MILD PULMONIC REGURGITATION.
[2020-10-02] MEDS: Amaryl 2 MG PO SCH (08:37)
[2020-10-02] MEDS: Novolin N SQ SCH (08:37)
[2020-10-02] MEDS: Glucophage 500 MG PO SCH (08:37)
[2020-10-02] MEDS: HUMALOG SQ PRN ×2 (08:43→12:28)
[2020-10-02] MEDS: FOLATE 1 MG PO SCH (09:40)
[2020-10-02] MEDS: Tricor 145 MG PO SCH (09:40)
[2020-10-02] MEDS: ECOTRIN 81 MG PO SCH (09:41)
[2020-10-02] MEDS: Namenda 5 MG PO SCH (09:41)
[2020-10-02] MEDS: Lopressor 50 MG PO SCH (09:41)
[2020-10-02] MEDS: Imdur 30 MG PO SCH (09:41)
[2020-10-02] MEDS: Tessalon Perles 100 MG PO SCH ×2 (09:41→14:08)
[2020-10-02] MEDS: DELTASONE 5 MG PO SCH (09:42)
[2020-10-02] MEDS: hydroDIURIL 25 MG PO SCH (09:42)
[2020-10-02] MEDS: NORVASC 5 MG PO SCH (09:43)
[2020-10-02] MEDS: Voltaren GEL TOP SCH (09:46)
[2020-10-02] MEDS: MAG-OX 400 PO SCH (12:28)
[2020-10-02] MEDS: THERAGRAN MULTIVITAMIN PO SCH (12:28)
[2020-10-02] MEDS: PLAVIX 75 MG Tablet PO SCH (12:28)
[2020-10-02] MEDS: Cordarone 200 MG PO SCH (12:28)
[2020-10-02] MEDS: Sodium Chloride 0.9% 1000 ML 1,000 ML IV SCH (13:18)
[2020-10-02] MEDS: ROCEPHIN 1 Gm-D5w 50 ml Bag** 1 G/50 ML IVPB IV SCH (16:30)
[2020-10-02 16:39] VITALS: BP 139/59; PULSE 64; O2SAT 91
--- NOTE | 2020-10-10 11:58 | PCM.DS ---
Discharge Summary Date of Admission: 09/29/20 15:26 Date of Discharge: 10/02/2020 Admitting Physician: JOVI OLIVEIRA MD Consults: Consults on Case 09/29/20 12:14 Consult Cardiology ROUTINE 10/01/20 15:17 Consult Pulmonology ROUTINE Primary Care Provider: JOVI OLIVEIRA MD Allergies Allergies No Known Drug Allergies Allergy (Verified 09/28/20 13:00) Hospital Summary - Hospital Course Hospital Course: Pt. admitted for acute hypoxia, during her stay she was slow to wean off of oxygen but shortly after starting steroids and antibiotics she was finally able to wean off of the oxygen and ready for discharge with follow up arranged with pulmonary and cardiology both of which were consulted during her stay in the hospital. - Vitals & Intake/Output Vital Signs: Vital Signs Temperature 97.2 F 10/02/20 16:00 Pulse Rate 64 10/02/20 16:00 Respiratory Rate 22 10/02/20 16:00 Blood Pressure 139/59 10/02/20 16:00 O2 Sat by Pulse Oximetry 91 L 10/02/20 16:00 - Lab Result Diagrams: 10/01/20 07:10 10/01/20 07:10 Micro Results-Entire Visit: Microbiology 09/28/20 18:24 Blood Culture Gram Stain - Final Blood Not Reportable Blood Culture - Final NO GROWTH 09/28/20 18:18 Blood Culture Gram Stain - Final Blood Not Reportable Blood Culture - Final NO GROWTH - Procedures and Test Procedures and Tests throughout Hospitalization: Therapy Orders & Screens 09/28/20 18:05 Respiratory Therapy Assessment DAILY Comment: 09/29/20 05:08 Oxygen Nasal Cannula 2 lpm Comment: Diagnosis: palpatations 09/29/20 14:39 EKG STAT Comment: Diagnosis: palpatations Discharge Exam General Appearance: no apparent distress, alert Neurologic Exam: alert, cooperative, normal mood/affect, nml cerebellar function, sensation nml, No motor deficits Eye Exam: PERRL, EOMI, eyes nml inspection Ears, Nose, Throat Exam: normal ENT inspection, pharynx normal, moist mucous membranes Neck Exam: normal inspection, non-tender, supple, full range of motion Respiratory Exam: normal breath sounds, lungs clear, No respiratory distress Cardiovascular Exam: regular rate/rhythm, normal heart sounds Gastrointestinal/Abdomen Exam: soft, No tenderness, No mass Pelvic Exam: deferred Rectal Exam: deferred Back Exam: normal inspection, normal range of motion, No CVA tenderness, No vertebral tenderness Extremity Exam: normal inspection, normal range of motion Skin Exam: normal color, warm, dry Final Diagnosis/Problem List - Final Discharge Diagnosis/Problem (1) Chronic anemia Status: Acute Code(s): D64.9 - ANEMIA, UNSPECIFIED (2) Dementia Status: Acute Code(s): F03.90 - UNSPECIFIED DEMENTIA WITHOUT BEHAVIORAL DISTURBANCE (3) Hypoxia Status: Acute Code(s): R09.02 - HYPOXEMIA - Discharge Discharge Date: 10/02/20 Disposition: Home, Self-Care Condition: Stable Prescriptions: New Amox Tr/Potass Clav. 875 mg [Augmentin 875-125 Tablet] 875 mg PO BID 7 Days #14 tablet Prednisone 10 mg [Deltasone 10 mg] 10 mg PO DAILY #5 tablet Continue Fenofibrate Nanocrystallized [Fenofibrate] 48 mg PO DAILY NPH, Human Insulin Isophane [Humulin N] 24 units SQ QAM Metoprolol Tartrate 50 mg [Lopressor 50 MG] 50 mg PO BID Metformin HCl 500 mg PO BID Amlodipine Besylate 10 mg PO DAILY Losartan Potassium 100 mg PO HS Isosorbide Mononitrate [Isosorbide Mononitrate ER] 30 mg PO DAILY Hydrochlorothiazide 12.5 mg PO DAILY Folic Acid 1 mg [Folate 1 mg] 1 mg PO DAILY Clopidogrel Bisulfate [Clopidogrel] 75 mg PO 1200 Amiodarone HCl 200 mg [Cordarone 200 MG] 200 mg PO 1200 Memantine HCl [Memantine HCl ER] 14 mg PO HS Methotrexate Sodium [Methotrexate] 2.5 mg PO WEEKLY Multivitamin W-Minerals/Lutein [Centrum Silver Tablet] 1 each PO 1200 Magnesium Oxide [Magnesium] 400 mg PO 1200 Glimepiride 2 mg [Amaryl 2 MG] 2 mg PO DAILY Aspirin 81 mg PO DAILY Ubidecarenone [Co Q-10] 0 mg PO 1200 Discontinued Prednisone 5 mg [Deltasone 5 mg] 5 mg PO DAILY Instructions: Palpitations (DC) Additional Instructions: APPOINTMENT WITH DR Yoko MEHTA 10/08/20 AT [facility]. DR MEHTA'S OFFICE WILL CALL YOU Monday10/07/20 WITH TIME OF APPOINTMENT. Follow up with: JOVI OLIVEIRA MD [Primary Care Provider] - 10/13/20 9:30 am DG MEHTA [ACTIVE STAFF] - 10/07/20 (At the [place] office. The office will call you with the time.) Forms: Discharge Instructions
== END 2020-10-02 17:40 | disposition home or self-care (01) | DRG 812 ==
LOC: ED 12:51 → MED SURG 21:36 → OBSVTOIN 09-29 15:26
PROVIDERS: ADMIT Family Medicine; ATTEND Family Medicine
DX: D64.9 Anemia, unspecified (principal); R00.2 Palpitations; R06.02 Shortness of breath; Z79.899 Other long term (current) drug therapy; E11.9 Type 2 diabetes mellitus without complications; I10 Essential (primary) hypertension; I25.10 Atherosclerotic heart disease of native coronary artery without angina pectoris; Z79.01 Long term (current) use of anticoagulants; R07.9 Chest pain, unspecified; R09.02 Hypoxemia; R53.83 Other fatigue; F03.90 Unspecified dementia, unspecified severity, without behavioral disturbance, psychotic disturbance, mood disturbance, and anxiety; I51.7 Cardiomegaly; J84.10 Pulmonary fibrosis, unspecified; R05 Cough; Z95.0 Presence of cardiac pacemaker; D71 Functional disorders of polymorphonuclear neutrophils; M06.9 Rheumatoid arthritis, unspecified; Z20.828 Contact with and (suspected) exposure to other viral communicable diseases
CPT/HCPCS: 0241U; 36000; 36415; 71045; 71260; 80048; 80053; 81001; 82947; 83036; 83735; 83880; 84484; 85025; 85027; 85379; 87040; 93005; 93041; 93268; 93306; 94640; 94760; 94762; 96374; 99284; G0378; Q3014; 96375; J0696; J1817; J2270; J2920; J2930; J7609; J8610; A9270-GY

== ENCOUNTER 2022-01-14 17:47 | Emergency (ER) | payer MEDICARE, BC ==
[2022-01-14 18:14] LABS: Absolute Neutrophil Ct (ANC) 7.57 x10^3/uL (1.4-6.9); Basophil (Absolute #) 0.06 x10^3/uL (0-0.4); Eosinophil % 2.4 % (0.00-5.0); Eosinophil (Absolute #) 0.26 x10^3/uL (0-0.5); Hematocrit 28.7 % (35-47); Hemoglobin 9.3 g/dL (12.0-16.0); Lymphocyte (Absolute #) 2.08 x10^3/uL (1.0-4.6); Lymphocytes % 19.3 % (24.0-44.0); Mean Cell Volume 93.5 fL (78-100); Mean Corpuscular Hemoglobin 30.3 pg (26-32); Mean Corpuscular Hgb Concent. 32.4 g/dL (32-36); Mean Platelet Volume 8.5 fL (7.5-11.0); Monocyte (Absolute #) 0.72 x10^3/uL (0.0-1.3); Monocytes % 6.7 % (0.0-12.0); Neutrophil % 70.2 % (36.0-66.0); Platelet Count 675 x10^3/uL (150-450); Red Blood Count 3.07 x10^6/uL (4.1-5.4); Red Cell Distribution Width 13.8 % (11.5-14.0); White Blood Count 10.8 x10^3/uL (4.0-10.5)
--- NOTE | 2022-01-14 18:26 | ERPHSYRPT ---
- History of Present Illness Source: patient, other () Exam Limitations: other (Extremely poor historian due to dementia) Patient Subjective Stated Complaint: C/O left sided weakness and some chest tightness that started just prior to arrival to ED. states that patient hasn't been feeling well for approx a week but the chest pain/tightness and left sided weakness just started today Triage Nursing Assessment: Patient ambulated back to ED with assistance of her and one staff member on each side of her to steady her as she ambulated. Weakness noted to left side during ambulation. No SOB noted. 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 Mouth/Smile is symetrical. Physician History: 86 yo wf w dementia brought into ER by her because of chest tightness/dyspnea/L facial numbness/generalized lethargy w possible L sided weakness. states that pt has had diarrhea x2wks/cough x2 days/mild coryza. Fever is denied, along w dysuria/hematuria/abdominal pain. Timing/Duration: today Severity: moderate Modifying Factors: Improves With: nothing Associated Symptoms: shortness of breath, cough, chest pain, loss of appetite, malaise, weakness, No nausea, No vomiting, No abdominal pain, No heartburn, No diaphoresis, No chills, No fever, No headaches, No rash, No syncope, No seizure Allergies/Adverse Reactions: No Known Drug Allergies Allergy (Verified 01/14/22 17:50) Home Medications: Amlodipine Besylate 10 mg PO DAILY 07/04/17 [History] Fenofibrate Nanocrystallized [Fenofibrate] 48 mg PO DAILY 07/04/17 [History] Metformin HCl 500 mg PO BID 07/04/17 [History] Metoprolol Tartrate 50 mg [Lopressor 50 MG] 50 mg PO BID 07/04/17 [Hist ory] NPH, Human Insulin Isophane [Humulin N] 24 units SQ QAM 07/04/17 [History] Clopidogrel Bisulfate [Clopidogrel] 75 mg PO 1200 08/14/19 [History] Folic Acid 1 mg [Folate 1 mg] 1 mg PO DAILY 08/14/19 [History] Isosorbide Mononitrate [Isosorbide Mononitrate ER] 30 mg PO DAILY 08/14/19 [History] Losartan Potassium 100 mg PO HS 08/14/19 [History] hydroCHLOROthiazide [Hydrochlorothiazide] 12.5 mg PO DAILY 08/14/19 [History] Amiodarone HCl 200 mg [Cordarone 200 MG] 200 mg PO 1200 08/25/19 [History] Aspirin 81 mg PO DAILY 09/28/20 [History] Glimepiride 2 mg [Amaryl 2 MG] 2 mg PO DAILY 09/28/20 [History] Magnesium Oxide [Magnesium] 400 mg PO 1200 09/28/20 [History] Memantine HCl [Memantine HCl ER] 14 mg PO HS 09/28/20 [History] Multivitamin W-Minerals/Lutein [Centrum Silver Tablet] 1 each PO 1200 09/28/20 [History] Ubidecarenone [Co Q-10] 0 mg PO 1200 09/28/20 [History] metHOTREXate sodium [Methotrexate] 2.5 mg PO WEEKLY 09/28/20 [History] Hx Tetanus, Diphtheria Vaccination/Date Given: Yes Hx Influenza Vaccination/Date Given: No Hx Pneumococcal Vaccination/Date Given: Yes Immunizations Up to Date: Yes Travel Risk - International Travel Have you traveled outside of the country in past 3 weeks: No - Coronavirus Screening Are you exhibiting any of the following symptoms?: Yes Symptoms: Shortness of Breath - Vaccine Status Have you recieved a Covid-19 vaccination: Yes 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: [employer] - Vaccination Dates Date of 2cond Vaccination (if applicable): 06/27/2020 - Review of Systems Constitutional: No Symptoms, Fatigue, Lethargy, Malaise Eyes: No Symptoms Ears, Nose, & Throat: No Symptoms, Nose Congestion, Nose Discharge Respiratory: No Symptoms, Cough, Dyspnea Cardiac: No Symptoms, Chest Pain Abdominal/Gastrointestinal: No Symptoms, Diarrhea Genitourinary Symptoms: No Symptoms Musculoskeletal: No Symptoms Skin: No Symptoms Neurological: No Symptoms, Parasthesia Endocrine: No Symptoms Hematologic/Lymphatic: No Symptoms Immunological/Allergic: No Symptoms - Past Medical History Pertinent Past Medical History: Yes Neurological History: Dementia Cardiac History: Angina, Coronary Artery Disease, Hypertension Respiratory History: No Pertinent History Endocrine Medical History: Diabetes Type II Musculoskeletal History: No Pertinent History GI Medical History: No Pertinent History History: No Pertinent History Psycho-Social History: No Pertinent History Female Reproductive Disorders: Abnormal Uterine Bleeding Other Medical History: . - Past Surgical History Past Surgical History: Yes Neuro Surgical History: No Pertinent History Cardiac: Pacemaker Respiratory: No Pertinent History Female Surgical History: Hysterectomy Other Surgical History: 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,COLON SURGERIES "YEARS AND YEARS AGO" - Social History Smoking Status: Former smoker Exposure to second hand smoke: No Drug Use: none Patient Lives Alone: No Significant Family History: no pertinent family hx - Nursing Vital Signs Nursing Vital Signs: Initial Vital Signs Temperature 97.6 F 01/14/22 17:50 Pain Scale Pain Intensity 2 - Physical Exam General Appearance: no apparent distress Eye Exam: PERRL/EOMI, eyes nml inspection Ears, Nose, Throat Exam: normal ENT inspection, TMs normal, pharynx normal, moist mucous membranes Neck Exam: normal inspection, non-tender, supple, full range of motion, No meningismus, No mass, No Brudzinski, No Kernig's, No carotid bruit Respiratory Exam: respiratory distress (Sats mid to high 80's), crackles/rales (B bases) Cardiovascular Exam: regular rate/rhythm, murmur (3/6 ELENA) Gastrointestinal/Abdomen Exam: soft, normal bowel sounds, No tenderness Back Exam: normal inspection, normal range of motion, No CVA tenderness, No vertebral tenderness Extremity Exam: normal inspection, normal range of motion, pelvis stable Neurologic Exam: alert, cooperative, 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 as tested, sensation nml, No motor deficits, No sensory deficit Skin Exam: normal color, warm, dry Lymphatic Exam: No adenopathy - Course Nursing assessment & vital signs reviewed: Yes EKG Interpreted by Me: RATE (Paced/Rate 77/IVCD) - Radiology Exams Chest X-ray Interpretation: Interpreted by me (CXR/paced/Nothing acute) - CT Exams Head CT Interpretation: Tele-radiologist Report (CT head neg per Rad) Chest CT Interpretation: Tele-radiologist Report (Nothing acute) Ordered Tests: Active Orders 24 hr Category Date Time Status EKG-ER Only STAT Care 01/14/22 18:01 Completed CHEST 1 VIEW (PORTABLE) Stat Exams 01/14/22 18:02 Completed CHEST WITHOUT CONTRAST [CT] Stat Exams 01/14/22 22:00 Taken HEAD WITHOUT CONTRAST [CT] Stat Exams 01/14/22 17:48 Completed CBC W DIFF Stat Lab 01/14/22 18:11 Completed CMP Stat Lab 01/14/22 21:22 Completed D-DIMER QUANTITATIVE Stat Lab 01/14/22 19:59 Completed Lactic Acid Stat Lab 01/14/22 18:02 Completed NT PRO BNP Stat Lab 01/14/22 19:20 Completed PROTIME WITH INR Stat Lab 01/14/22 18:11 Completed PTT Stat Lab 01/14/22 18:11 Completed TROPONIN Q4H Lab 01/14/22 18:11 Completed TROPONIN Q4H Lab 01/14/22 22:15 Completed TROPONIN Q4H Lab 01/15/22 02:15 Ordered UA W/RFX CULTURE Stat Lab 01/14/22 18:15 Completed Medication Summary Discontinued Medications Generic Name Dose Route Start Last Admin Trade Name Freq PRN Reason Stop Dose Admin Sodium Chloride 500 mls @ 500 mls/hr 01/14/22 23:47 01/14/22 23:50 Sodium Chloride 0.9% 500 Ml IV 01/15/22 00:46 500 mls/hr .Q1H ONE Administration Sodium Chloride Confirm 01/14/22 23:48 Sodium Chloride 0.9% 500 Ml Administered 01/14/22 23:49 Dose 500 mls @ ud IV .STK-MED ONE Lab/Rad Data: Laboratory Result Diagrams 01/14/22 18:11 01/14/22 21:22 Laboratory Results 01/14/22 01/14/22 01/14/22 Range/Units Unknown 22:15 21:22 WBC (4.0-10.5) x10^3/uL RBC (4.1-5.4) x10^6/uL Hgb (12.0-16.0) g/dL Hct (35-47) % MCV (78-100) fL MCH (26-32) pg MCHC (32-36) g/dL RDW (11.5-14.0) % Plt Count (150-450) x10^3/uL MPV (7.5-11.0) fL Gran % (36.0-66.0) % Immature Gran % (Auto) (0.00-0.4) % Nucleat RBC Rel Count (0.00-0.1) % Eos # (Auto) (0-0.5) x10^3/uL Immature Gran # (Auto) (0.00-0.03) x10^3u/L Absolute Lymphs (auto) (1.0-4.6) x10^3/uL Absolute Monos (auto) (0.0-1.3) x10^3/uL Absolute Nucleated RBC (0.00-0.01) x10^3u/L Lymphocytes % (24.0-44.0) % Monocytes % (0.0-12.0) % Eosinophils % (0.00-5.0) % Basophils % (0.0-0.4) % Absolute Granulocytes (1.4-6.9) x10^3/uL Basophils # (0-0.4) x10^3/uL PT (9.4-12.5) SECONDS INR (0.8-3.0) APTT (25.1-36.5) SECONDS D-Dimer (0.0-0.50) mg/L Sodium 135 L (137-145) mmol/L Sodium Direct (138-146) mmol/L Potassium 4.8 (3.5-4.9) mmol/L Chloride 98 (98-109) mmol/L Carbon Dioxide 25 (24-29) mmol/L Anion Gap 16.8 H (5-15) MEQ/L BUN 20 H (7-17) mg/dL Venous BUN (8-26) mg/dL Creatinine 1.66 H (0.6-1.3) mg/dL Estimated GFR 31.1 ML/MIN Glucose 164 H (70-105) mg/dL Lactic Acid (0.4-2.0) Calcium 9.6 (8.4-10.2) mg/dL Ionized Calcium (1.12-1.32) mmol/L Total Bilirubin 0.40 (0.2-1.3) mg/dL AST 27 (14-36) U/L ALT 19 (0-35) U/L Alkaline Phosphatase 67 (38-126) U/L Troponin I < 0.012 (0.000-0.034) ng/mL NT-Pro-B Natriuret Pep (0-1800) pg/mL Serum Total Protein 7.2 (6.3-8.2) g/dL Albumin 4.3 (3.5-5.0) g/dL Urinalys Dipstick Clnc Urine Color (YELLOW) Urine Appearance (CLEAR) Urine pH (5-6) Ur Specific Gibson (1.005-1.025) POC Urine Protein Conf (Negative) Urine Ketones (NEGATIVE) Urine Nitrite (NEGATIVE) Urine Bilirubin (NEGATIVE) Urine Urobilinogen (0-1) mg/dL Urine Leukocytes (NEGATIVE) Urine WBC (Auto) (0-5) /HPF Urine RBC (Auto) (0-2) /HPF U Epithel Cells (Auto) (FEW) /HPF Urine Bacteria (Auto) (NEGATIVE) /HPF Urine RBC (0-5) Benji/ul Ur Culture Indicated? Urine Glucose (NEGATIVE) mg/dL Influenza Type A Ag NEGATIVE (NEGATIVE) Influenza Type B Ag NEGATIVE (NEGATIVE) RSV (PCR) NEGATIVE (Negative) SARS-CoV-2 (PCR) NEGATIVE (NEGATIVE) 01/14/22 01/14/22 01/14/22 Range/Units 19:59 19:20 18:15 WBC (4.0-10.5) x10^3/uL RBC (4.1-5.4) x10^6/uL Hgb (12.0-16.0) g/dL Hct (35-47) % MCV (78-100) fL MCH (26-32) pg MCHC (32-36) g/dL RDW (11.5-14.0) % Plt Count (150-450) x10^3/uL MPV (7.5-11.0) fL Gran % (36.0-66.0) % Immature Gran % (Auto) (0.00-0.4) % Nucleat RBC Rel Count (0.00-0.1) % Eos # (Auto) (0-0.5) x10^3/uL Immature Gran # (Auto) (0.00-0.03) x10^3u/L Absolute Lymphs (auto) (1.0-4.6) x10^3/uL Absolute Monos (auto) (0.0-1.3) x10^3/uL Absolute Nucleated RBC (0.00-0.01) x10^3u/L Lymphocytes % (24.0-44.0) % Monocytes % (0.0-12.0) % Eosinophils % (0.00-5.0) % Basophils % (0.0-0.4) % Absolute Granulocytes (1.4-6.9) x10^3/uL Basophils # (0-0.4) x10^3/uL PT (9.4-12.5) SECONDS INR (0.8-3.0) APTT (25.1-36.5) SECONDS D-Dimer 0.66 H* (0.0-0.50) mg/L Sodium (137-145) mmol/L Sodium Direct (138-146) mmol/L Potassium (3.5-4.9) mmol/L Chloride (98-109) mmol/L Carbon Dioxide (24-29) mmol/L Anion Gap (5-15) MEQ/L BUN (7-17) mg/dL Venous BUN (8-26) mg/dL Creatinine (0.6-1.3) mg/dL Estimated GFR ML/MIN Glucose (70-105) mg/dL Lactic Acid (0.4-2.0) Calcium (8.4-10.2) mg/dL Ionized Calcium (1.12-1.32) mmol/L Total Bilirubin (0.2-1.3) mg/dL AST (14-36) U/L ALT (0-35) U/L Alkaline Phosphatase (38-126) U/L Troponin I (0.000-0.034) ng/mL NT-Pro-B Natriuret Pep 1320 (0-1800) pg/mL Serum Total Protein (6.3-8.2) g/dL Albumin (3.5-5.0) g/dL Urinalys Dipstick Clnc MAIN LAB Urine Color YELLOW (YELLOW) Urine Appearance CLEAR (CLEAR) Urine pH 7.0 (5-6) Ur Specific Gibson 1.020 (1.005-1.025) POC Urine Protein Conf NEGATIVE (Negative) Urine Ketones NEGATIVE (NEGATIVE) Urine Nitrite NEGATIVE (NEGATIVE) Urine Bilirubin NEGATIVE (NEGATIVE) Urine Urobilinogen 0.2 (0-1) mg/dL Urine Leukocytes TRACE (NEGATIVE) Urine WBC (Auto) NONE (0-5) /HPF Urine RBC (Auto) NONE (0-2) /HPF U Epithel Cells (Auto) NONE (FEW) /HPF Urine Bacteria (Auto) NONE (NEGATIVE) /HPF Urine RBC NEGATIVE (0-5) Benji/ul Ur Culture Indicated? NO Urine Glucose NEGATIVE (NEGATIVE) mg/dL Influenza Type A Ag (NEGATIVE) Influenza Type B Ag (NEGATIVE) RSV (PCR) (Negative) SARS-CoV-2 (PCR) (NEGATIVE) 01/14/22 01/14/22 01/14/22 Range/Units 18:11 18:11 18:11 WBC (4.0-10.5) x10^3/uL RBC (4.1-5.4) x10^6/uL Hgb (12.0-16.0) g/dL Hct (35-47) % MCV (78-100) fL MCH (26-32) pg MCHC (32-36) g/dL RDW (11.5-14.0) % Plt Count (150-450) x10^3/uL MPV (7.5-11.0) fL Gran % (36.0-66.0) % Immature Gran % (Auto) (0.00-0.4) % Nucleat RBC Rel Count (0.00-0.1) % Eos # (Auto) (0-0.5) x10^3/uL Immature Gran # (Auto) (0.00-0.03) x10^3u/L Absolute Lymphs (auto) (1.0-4.6) x10^3/uL Absolute Monos (auto) (0.0-1.3) x10^3/uL Absolute Nucleated RBC (0.00-0.01) x10^3u/L Lymphocytes % (24.0-44.0) % Monocytes % (0.0-12.0) % Eosinophils % (0.00-5.0) % Basophils % (0.0-0.4) % Absolute Granulocytes (1.4-6.9) x10^3/uL Basophils # (0-0.4) x10^3/uL PT 11.9 (9.4-12.5) SECONDS INR 1.14 (0.8-3.0) APTT 34.2 (25.1-36.5) SECONDS D-Dimer (0.0-0.50) mg/L Sodium (137-145) mmol/L Sodium Direct 135 L (138-146) mmol/L Potassium 4.3 (3.5-4.9) mmol/L Chloride 96 L (98-109) mmol/L Carbon Dioxide 25 (24-29) mmol/L Anion Gap (5-15) MEQ/L BUN (7-17) mg/dL Venous BUN 23 (8-26) mg/dL Creatinine 1.7 H (0.6-1.3) mg/dL Estimated GFR ML/MIN Glucose 164 H (70-105) mg/dL Lactic Acid (0.4-2.0) Calcium (8.4-10.2) mg/dL Ionized Calcium 1.19 (1.12-1.32) mmol/L Total Bilirubin (0.2-1.3) mg/dL AST (14-36) U/L ALT (0-35) U/L Alkaline Phosphatase (38-126) U/L Troponin I < 0.012 (0.000-0.034) ng/mL NT-Pro-B Natriuret Pep (0-1800) pg/mL Serum Total Protein (6.3-8.2) g/dL Albumin (3.5-5.0) g/dL Urinalys Dipstick Clnc Urine Color (YELLOW) Urine Appearance (CLEAR) Urine pH (5-6) Ur Specific Gibson (1.005-1.025) POC Urine Protein Conf (Negative) Urine Ketones (NEGATIVE) Urine Nitrite (NEGATIVE) Urine Bilirubin (NEGATIVE) Urine Urobilinogen (0-1) mg/dL Urine Leukocytes (NEGATIVE) Urine WBC (Auto) (0-5) /HPF Urine RBC (Auto) (0-2) /HPF U Epithel Cells (Auto) (FEW) /HPF Urine Bacteria (Auto) (NEGATIVE) /HPF Urine RBC (0-5) Benji/ul Ur Culture Indicated? Urine Glucose (NEGATIVE) mg/dL Influenza Type A Ag (NEGATIVE) Influenza Type B Ag (NEGATIVE) RSV (PCR) (Negative) SARS-CoV-2 (PCR) (NEGATIVE) 01/14/22 01/14/22 Range/Units 18:11 18:02 WBC 10.8 H (4.0-10.5) x10^3/uL RBC 3.07 L (4.1-5.4) x10^6/uL Hgb 9.3 L (12.0-16.0) g/dL Hct 28.7 L (35-47) % MCV 93.5 (78-100) fL MCH 30.3 (26-32) pg MCHC 32.4 (32-36) g/dL RDW 13.8 (11.5-14.0) % Plt Count 675 H (150-450) x10^3/uL MPV 8.5 (7.5-11.0) fL Gran % 70.2 H (36.0-66.0) % Immature Gran % (Auto) 0.8 H (0.00-0.4) % Nucleat RBC Rel Count 0.0 (0.00-0.1) % Eos # (Auto) 0.26 (0-0.5) x10^3/uL Immature Gran # (Auto) 0.09 H (0.00-0.03) x10^3u/L Absolute Lymphs (auto) 2.08 (1.0-4.6) x10^3/uL Absolute Monos (auto) 0.72 (0.0-1.3) x10^3/uL Absolute Nucleated RBC 0.00 (0.00-0.01) x10^3u/L Lymphocytes % 19.3 L (24.0-44.0) % Monocytes % 6.7 (0.0-12.0) % Eosinophils % 2.4 (0.00-5.0) % Basophils % 0.6 (0.0-0.4) % Absolute Granulocytes 7.57 H (1.4-6.9) x10^3/uL Basophils # 0.06 (0-0.4) x10^3/uL PT (9.4-12.5) SECONDS INR (0.8-3.0) APTT (25.1-36.5) SECONDS D-Dimer (0.0-0.50) mg/L Sodium (137-145) mmol/L Sodium Direct (138-146) mmol/L Potassium (3.5-4.9) mmol/L Chloride (98-109) mmol/L Carbon Dioxide (24-29) mmol/L Anion Gap (5-15) MEQ/L BUN (7-17) mg/dL Venous BUN (8-26) mg/dL Creatinine (0.6-1.3) mg/dL Estimated GFR ML/MIN Glucose (70-105) mg/dL Lactic Acid 1.5 (0.4-2.0) Calcium (8.4-10.2) mg/dL Ionized Calcium (1.12-1.32) mmol/L Total Bilirubin (0.2-1.3) mg/dL AST (14-36) U/L ALT (0-35) U/L Alkaline Phosphatase (38-126) U/L Troponin I (0.000-0.034) ng/mL NT-Pro-B Natriuret Pep (0-1800) pg/mL Serum Total Protein (6.3-8.2) g/dL Albumin (3.5-5.0) g/dL Urinalys Dipstick Clnc Urine Color (YELLOW) Urine Appearance (CLEAR) Urine pH (5-6) Ur Specific Gibson (1.005-1.025) POC Urine Protein Conf (Negative) Urine Ketones (NEGATIVE) Urine Nitrite (NEGATIVE) Urine Bilirubin (NEGATIVE) Urine Urobilinogen (0-1) mg/dL Urine Leukocytes (NEGATIVE) Urine WBC (Auto) (0-5) /HPF Urine RBC (Auto) (0-2) /HPF U Epithel Cells (Auto) (FEW) /HPF Urine Bacteria (Auto) (NEGATIVE) /HPF Urine RBC (0-5) Benji/ul Ur Culture Indicated? Urine Glucose (NEGATIVE) mg/dL Influenza Type A Ag (NEGATIVE) Influenza Type B Ag (NEGATIVE) RSV (PCR) (Negative) SARS-CoV-2 (PCR) (NEGATIVE) - Progress Progress: improved Progress Note: 01/14/22 23:48 Pt wo focal weakness/chest pain/dyspnea/fever/cough in ER Pt/ state that she is at her baseline and want to go home 01/14/22 23:50 Troponin neg x2 01/15/22 00:27 500ml NS bolus Sats 89-94 on RA/Respirations unlabored/Pt wo pneumonia,CHF, and CV19 Counseled pt/family regarding: lab results, diagnosis, need for follow-up, rad results - Departure Departure Disposition: Home Clinical Impression: Lethargy Condition: Stable Critical Care Time: No Referrals: MICHAEL AMADO [Primary Care Provider] - Follow up/PCP as directed Instructions: Generalized Weakness (DC) Additional Instructions: Follow up with your family MD on Monday Return to ER for chest pain/Focal weakness/Shortness of breath/Temperature greater than 100.5
[2022-01-14 18:40] LABS: Appearance CLEAR (CLEAR); Bilirubin NEGATIVE (NEGATIVE); Glucose NEGATIVE (NEGATIVE); Ketones NEGATIVE (NEGATIVE); RBC NEGATIVE Ery/ul (0-5)
[2022-01-14 18:41] LABS: Dipstick done @ ? MAIN LAB; Nitrite NEGATIVE (NEGATIVE); Protein,Urine Dip NEGATIVE (Negative); Urobilinogen 0.2 mg/dL (0-1)
[2022-01-14 18:41] LABS: INR 1.14 (0.8-3.0); PROTIME 11.9 SECONDS (9.4-12.5); PTT 34.2 SECONDS (25.1-36.5)
[2022-01-14 18:47] LABS: Urine Cultured Indicated? NO
[2022-01-14 18:53] LABS: ISTAT CREA 1.7 mg/dL (0.6-1.3); ISTAT K 4.3 mmol/L (3.5-4.9)
[2022-01-14 20:18] LABS: INFLUENZA A NEGATIVE (NEGATIVE); INFLUENZA B NEGATIVE (NEGATIVE); RESPIRATORY SYNCTIAL VIRUS NEGATIVE (Negative); SARS-CoV-2 Xpert Express NEGATIVE (NEGATIVE)
[2022-01-14 21:48] LABS: ALBUMIN 4.3 g/dL (3.5-5.0); ANION GAP 16.8 MEQ/L (5-15); BILIRUBIN,TOTAL 0.4 mg/dL (0.2-1.3); Calcium 9.6 mg/dL (8.4-10.2); Creatinine 1 1.66 mg/dL (0.52-1.04); EST GLOMERULAR FILTRATION RATE 31.1 ML/MIN; Potassium 4.8 mmol/L (3.5-5.1); Total Protein 7.2 g/dL (6.3-8.2)
--- NOTE | 2022-01-14 21:49 | XRAY ---
Indication: Left-sided weakness. Stroke. Multiple contiguous axial images obtained through the head without contrast. Comparison: August 14, 2019 Again age-appropriate global atrophy and moderate periventricular degenerative micro-ischemia bilaterally. No acute intracranial hemorrhage, abnormal extra-axial fluid collection, or mass effect. Fourth ventricle is midline without hydrocephalus. Bony calvarium intact. Visualized paranasal sinuses and mastoid air cells are clear. Impression: Continued nonacute senile brain. Comment: Preliminary interpretation made by [facility]. No critical discrepancy.
--- NOTE | 2022-01-14 21:51 | XRAY ---
Indication: Left-sided weakness. Stroke symptoms. Comparison: May 25, 2021 Portable chest unchanged again hyperinflated and clear with incidental right apical calcified granuloma. Heart not enlarged again with left pacemaker and arteriosclerotic aorta. Bony thorax intact again with osteopenia and degenerative changes. No new/acute findings.
[2022-01-14] MEDS ORDERED: Sodium Chloride 0.9% 500 ML 500 ML IV ONE ×2 (23:47→23:48)
[2022-01-15 00:07] VITALS: BP 156/53; PULSE 63; O2SAT 93
--- NOTE | 2022-01-15 06:24 | XRAY ---
Indication: Dyspnea. Elevated d-dimer. Multiple contiguous axial images obtained through the chest without contrast. Comparison: September 28, 2020 Lungs again demonstrates mild bilateral dependent atelectasis, bilateral upper lobe calcified granulomas, and scattered atelectasis/scarring again greatest in both lung bases. No suspicious pulmonary mass, infiltrate, or effusion. Heart remains borderline enlarged again with mitral valve calcifications and left pacemaker. Aorta remains arteriosclerotic without aneurysm. Stable small mediastinal/tiny bilateral hilar calcified nodes. No pathologic mediastinal lymphadenopathy. Again small hiatal hernia. Bony thorax intact again with osteopenia and mild degenerative changes throughout the spine. Limited upper abdomen again demonstrates splenic calcified granulomas. Impression: 1. Again borderline cardiomegaly, pulmonary fibrosis/scarring, small hiatal hernia, chronic bony findings, and old granulomatous disease. 2. No new/acute findings. Comment: Preliminary interpretation made by [facility]. No critical discrepancy.
== END 2022-01-15 00:48 | disposition home or self-care (01) ==
LOC: ED 17:47
DX: R53.83 Other fatigue (principal); R06.00 Dyspnea, unspecified; R07.9 Chest pain, unspecified; R20.2 Paresthesia of skin; R19.7 Diarrhea, unspecified; R05.1 Acute cough; R09.81 Nasal congestion; F03.90 Unspecified dementia, unspecified severity, without behavioral disturbance, psychotic disturbance, mood disturbance, and anxiety; I10 Essential (primary) hypertension; E11.9 Type 2 diabetes mellitus without complications; Z79.4 Long term (current) use of insulin; Z79.84 Long term (current) use of oral hypoglycemic drugs; Z79.02 Long term (current) use of antithrombotics/antiplatelets; Z79.899 Other long term (current) drug therapy
CPT/HCPCS: 0241U; 36000; 36415; 70450; 71045; 71250; 80047; 80053; 81015; 83605; 83880; 84484; 85025; 85379; 85610; 85730; 93005; 99284; 96360

== ENCOUNTER 2022-09-25 14:59 | Inpatient (IN) | payer BC, MEDICARE ==
[2022-09-25] MEDS ORDERED: Zofran 4 MG/2 ML VIAL IV ONE ×2 (15:37→18:32)
[2022-09-25] MEDS ORDERED: DUONEB 0.5-3 MG/3 ml Neb IH ONE ×2 (15:37→18:32)
[2022-09-25] MEDS ORDERED: TYLENOL 325 MG PO STA (15:37)
[2022-09-25 15:39] LABS: Absolute Neutrophil Ct (ANC) 6.68 x10^3/uL (1.4-6.9); BASOPHIL % 0.3 % (0.0-0.4); Basophil (Absolute #) 0.02 x10^3/uL (0-0.4); Eosinophil % 0.3 % (0.00-5.0); Eosinophil (Absolute #) 0.02 x10^3/uL (0-0.5); Hematocrit 28.8 % (35-47); Hemoglobin 9.2 g/dL (12.0-16.0); IMMATURE GRAN # 0.04 x10^3u/L (0.00-0.03); IMMATURE GRAN % 0.5 % (0.00-0.4); Lymphocyte (Absolute #) 0.33 x10^3/uL (1.0-4.6); Lymphocytes % 4.2 % (24.0-44.0); Mean Cell Volume 95.7 fL (78-100); Mean Corpuscular Hemoglobin 30.6 pg (26-32); Mean Corpuscular Hgb Concent. 31.9 g/dL (32-36); Mean Platelet Volume 9.3 fL (7.5-11.0); Monocyte (Absolute #) 0.69 x10^3/uL (0.0-1.3); Monocytes % 8.9 % (0.0-12.0); Neutrophil % 85.8 % (36.0-66.0); Platelet Count 336 x10^3/uL (150-450); Red Blood Count 3.01 x10^6/uL (4.1-5.4); Red Cell Distribution Width 14.6 % (11.5-14.0); White Blood Count 7.8 x10^3/uL (4.0-10.5)
[2022-09-25 15:44] LABS: Appearance Clear (Clear); Bacteria None Seen /HPF (None Seen); Bilirubin Negative (Negative); Blood Negative (Negative); Epithelial Cells Rare /HPF (None Seen); Glucose, Urine Negative (Negative); Hyaline Casts NONE SEEN /LPF (0-2); Ketones Trace (Negative); Leukocyte Esterase Negative (Negative); Nitrite Negative (Negative); Ph 7.5 (4.6-8.0); Protein,Urine Dip 100 (Negative); RBC 0-2 /HPF (0-5); Specific Gravity 1.015 (1.005-1.030); WBC 0-2 /HPF (0-5)
[2022-09-25 15:55] LABS: ADD URINE CULTURE? NO (NO)
[2022-09-25 15:57] LABS: A-aADO2 184; ABG HEMOGLOBIN 9.3; ABG POTASSIUM 3.5 (3.5-5.1); ABG SITE LEFT RADIAL; ALLEN TEST OK? YES; ARTERIAL BLD GAS O2 SATURATION 93.7 % (95-100); ARTERIAL BLOOD GAS FIO2 40 %; ARTERIAL BLOOD GAS PCO2 31 mmHg (35-45); ARTERIAL BLOOD GAS PO2 62 mmHg (75-100); ARTERIAL BLOOD GAS pH 7.45 (7.35-7.45); HCO3- 21.5 (22-28); HGB O2 SAT 92.5 g/dF (94-100); Lactic Acid 0.6 (0.4-2.0); Methhemoglobin 0.3 % (1.4-1.5); paO2 pAO1 0.25
[2022-09-25 16:04] LABS: ALBUMIN 3.4 g/dL (3.5-5.0); ANION GAP 12.2 MEQ/L (5-15); BILIRUBIN,TOTAL 0.4 mg/dL (0.2-1.3); Calcium 7.3 mg/dL (8.4-10.2); Creatinine 1 1.62 mg/dL (0.52-1.04); EST GLOMERULAR FILTRATION RATE 31.9 ML/MIN; MAGNESIUM 1.6 mg/dL (1.6-2.3); Potassium 3.2 mmol/L (3.5-5.1); Total Protein 6.5 g/dL (6.3-8.2)
[2022-09-25 16:15] LABS: INFLUENZA A NEGATIVE (NEGATIVE); INFLUENZA B NEGATIVE (NEGATIVE); RESPIRATORY SYNCTIAL VIRUS NEGATIVE (NEGATIVE)
[2022-09-25 16:27] LABS: SARS-CoV-2 Xpert Express POSITIVE (NEGATIVE)
[2022-09-25] MEDS ORDERED: Zithromax 500 MG/ 250 ML NaCl Premix 500 MG/250 ML IVPB IV STA (16:34)
[2022-09-25] MEDS ORDERED: ROCEPHIN 1 Gm-D5w 50 ml Bag** 1 G/50 ML IVPB IV STA (16:34)
[2022-09-25] MEDS ORDERED: BABY ASPIRIN 81 MG CHEW PO ONE (16:49)
[2022-09-25] MEDS ORDERED: DECADRON 10MG INJ. IV ONE (16:49)
[2022-09-25] MEDS ORDERED: DECADRON 10MG INJ. ONE (17:01)
[2022-09-25] MEDS ORDERED: BABY ASPIRIN 81 MG CHEW ONE (17:01)
[2022-09-25] MEDS ORDERED: ROCEPHIN 1 Gm-D5w 50 ml Bag** 1 G/50 ML IVPB IV ONE (17:01)
[2022-09-25] MEDS ORDERED: Zithromax 500 MG/ 250 ML NaCl Premix 0 MG/0 ML IVPB IV ONE (17:18)
[2022-09-25] MEDS ORDERED: Zithromax 500 MG/ 250 ML NaCl Premix 500 MG/250 ML IVPB IV ONE (17:20)
--- NOTE | 2022-09-25 18:20 | ERPHSYRPT ---
- History of Present Illness Time Seen by Provider: 09/25/22 18:10 Source: patient, family, EMS Exam Limitations: no limitations Patient Subjective Stated Complaint: Daughter states "mother has n/v/diarrhea past day" patients tested positive for covid-19 this past sat. Has cough also Triage Nursing Assessment: Patient presents with sob, cough, spo2 76% at room air, c/o n/v/diarrhea past day. Patient states Timing/Duration: yesterday, gradual onset Activities at Onset: rest Severity of Dyspnea-Max: moderate Severity of Dyspnea-Current: moderate Possible Cause: illness exposure Modifying Factors: Improves With: coughing Associated Symptoms: cough, tightness Allergies/Adverse Reactions: No Known Drug Allergies Allergy (Verified 04/27/22 11:41) Home Medications: Amlodipine Besylate 5 mg PO DAILY 07/04/17 [History] Fenofibrate Nanocrystallized [Fenofibrate] 48 mg PO DAILY 07/04/17 [History] Metformin HCl 500 mg PO BIDWM 07/04/17 [History] Metoprolol Tartrate 50 mg [Lopressor 50 MG] 25 mg PO BID 07/04/17 [History] NPH, Human Insulin Isophane [Humulin N] 10 units SQ QA 07/04/17 [History] Clopidogrel Bisulfate [Clopidogrel] 75 mg PO 1200 08/14/19 [History] Folic Acid 1 mg [Folate 1 mg] 1 mg PO DAILY 08/14/19 [History] Isosorbide Mononitrate [Isosorbide Mononitrate ER] 30 mg PO DAILY 08/14/19 [History] Losartan Potassium 100 mg PO HS 08/14/19 [History] Amiodarone HCl 200 mg [Cordarone 200 MG] 200 mg PO 1200 08/25/19 [History] Magnesium Oxide [Magnesium] 400 mg PO 1200 09/28/20 [History] Multivitamin W-Minerals/Lutein [Centrum Silver Tablet] 1 each PO 1200 09/28/20 [History] Famotidine 20 mg [Pepcid 20 MG] 20 mg PO BID 09/25/22 [History] Insulin NPH Human Isophane [Humulin N Kwikpen] 3 unit SQ 09/25/22 [History] Levothyroxine Sodium 25 mcg PO QAM 09/25/22 [History] Memantine HCl [Memantine HCl ER] 28 mg PO DAILY 09/25/22 [History] Rosuvastatin Calcium 10 mg PO DAILY 09/25/22 [History] Hx Tetanus, Diphtheria Vaccination/Date Given: Yes Hx Influenza Vaccination/Date Given: No Hx Pneumococcal Vaccination/Date Given: Yes Travel Risk - International Travel Have you traveled outside of the country in past 3 weeks: No - Coronavirus Screening Are you exhibiting any of the following symptoms?: Yes Symptoms: Cough: New Onset, Shortness of Breath, Vomiting/Diarrhea - Vaccine Status Have you recieved a Covid-19 vaccination: Yes Fluorescent Solution Mixer: b3 bio - Vaccination Dates Date of 2cond Vaccination (if applicable): 06/27/2020 - Past Medical History Pertinent Past Medical History: Yes Neurological History: Dementia Cardiac History: Angina, Coronary Artery Disease, Hypertension Respiratory History: No Pertinent History Endocrine Medical History: Diabetes Type II Musculoskeletal History: No Pertinent History GI Medical History: No Pertinent History History: No Pertinent History Psycho-Social History: No Pertinent History Female Reproductive Disorders: Abnormal Uterine Bleeding Other Medical History: . 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, - Social History Smoking Status: Former smoker Exposure to second hand smoke: No Drug Use: none Patient Lives Alone: No Significant Family History: no pertinent family hx - Nursing Vital Signs Nursing Vital Signs: Initial Vital Signs Temperature 99.7 F 09/25/22 15:02 Pulse Rate 72 09/25/22 15:02 Respiratory Rate 16 09/25/22 15:02 Blood Pressure 158/44 09/25/22 15:02 O2 Sat by Pulse Oximetry 94 L 09/25/22 15:02 Pain Scale Pain Intensity 0 - Physical Exam SpO2: 95 - Course EKG Interpreted by Me: RATE (70 paced), Right [place] Deviation, Q-wave Ordered Tests: Active Orders 24 hr Category Date Time Status D-DIMER QUANTITATIVE DAILY Lab 09/28/22 04:35 Completed D-DIMER QUANTITATIVE DAILY Lab 09/29/22 08:00 Ordered Medication Summary Generic Name Dose Route Start Last Admin Trade Name Freq PRN Reason Stop Dose Admin Acetaminophen 650 mg 09/25/22 18:33 Acetaminophen 325 Mg Tablet PO 10/25/22 18:32 Q4H PRN PRN PAIN AND/OR FEVER Amiodarone HCl 200 mg 09/26/22 12:00 09/28/22 12:31 Amiodarone Hcl 200 Mg Tab PO 10/26/22 11:59 200 mg 1200 MONE Administration Amlodipine Besylate 5 mg 09/26/22 10:00 09/28/22 10:07 Amlodipine Besylate 5 Mg Tablet PO 10/26/22 09:59 5 mg DAILY MONE Administration Clopidogrel Bisulfate 75 mg 09/26/22 12:00 09/28/22 12:31 Clopidogrel Bisulfate 75 Mg Tablet PO 10/26/22 11:59 75 mg 1200 MONE Administration Enoxaparin Sodium 40 mg 09/26/22 10:00 09/28/22 10:09 Enoxaparin Sodium 40 Mg/0.4 Ml Syringe SQ 10/26/22 09:59 40 mg DAILY MONE Administration Famotidine 20 mg 09/25/22 22:00 09/28/22 10:07 Famotidine 20 Mg Tablet PO 10/25/22 21:59 20 mg BID MONE Administration Fenofibrate 72.5 mg 09/26/22 10:00 09/28/22 10:08 Fenofibrate,Micronized 145 Mg Tablet PO 10/26/22 09:59 72.5 mg DAILY MONE Administration Folic Acid 1 mg 09/26/22 10:00 09/28/22 10:07 Folic Acid 1 Mg Tablet PO 10/26/22 09:59 1 mg DAILY MONE Administration Furosemide 40 mg 09/27/22 10:00 09/28/22 10:07 Furosemide 40 Mg/4 Ml Vial IV 10/27/22 09:59 40 mg Q12HT MONE Administration Ceftriaxone Sodium/Dextrose 1 g in 50 mls @ 100 mls/hr 09/26/22 10:00 09/28 10:10 Rocephin 1 Gm-D5w 50 Ml Bag IV 09/30/22 09:59 100 mls/hr Q24H10 MONE Administration Azithromycin 500 mg in 250 mls @ 250 mls/hr 09/26/22 10:00 09/28/22 10:58 Zithromax 500 Mg/ 250 Ml Nacl Premix IV 10/26/22 09:59 250 mls/hr Q24H10 MONE Administration Insulin Human Lispro 0 unit 09/25/22 18:33 09/27/22 22:23 Insulin Lispro 1 Unit SQ 10/25/22 18:32 7 unit UD PRN Administration HYPERGLYCEMIA Insulin Human NPH 3 unit 09/25/22 22:00 09/27/22 22:23 Insulin Nph Human Recom 1 Unit SQ 10/25/22 21:59 3 unit QHS MONE Administration Insulin Human NPH 10 unit 09/26/22 08:00 09/28/22 08:59 Insulin Nph Human Recom 1 Unit SQ 10/26/22 07:59 10 unit AMINSULIN MONE Administration Isosorbide Mononitrate 30 mg 09/26/22 10:00 09/28/22 10:06 Isosorbide Mononitrate 30 Mg Tab PO 10/26/22 09:59 30 mg DAILY MONE Administration Levothyroxine Sodium 25 mcg 09/26/22 10:00 09/28/22 10:07 Levothyroxine Sodium 25 Mcg Tablet PO 10/26/22 09:59 25 mcg QAM MONE Administration Losartan Potassium 100 mg 09/25/22 22:00 09/27/22 22:22 Losartan Potassium 50 Mg Tablet PO 10/25/22 21:59 100 mg QHS MONE Administration Magnesium Oxide 400 mg 09/26/22 12:00 09/28/22 12:31 Magnesium Oxide 400 Mg Tablet PO 10/26/22 11:59 400 mg 1200 MONE Administration Memantine 20 mg 09/26/22 10:00 09/28/22 10:07 Memantine Hcl 5 Mg Tablet PO 10/26/22 09:59 20 mg DAILY MONE Administration Metformin HCl 500 mg 09/26/22 08:00 09/28/22 17:34 Metformin Hcl 500 Mg Tablet PO 10/26/22 07:59 500 mg BIDWM MONE Administration Metoprolol Tartrate 25 mg 09/25/22 22:00 09/28/22 10:08 Metoprolol Tartrate 50 Mg Tablet PO 10/25/22 21:59 25 mg BID MONE Administration Multivitamins Therapeutic 1 tab 09/26/22 12:00 09/28/22 12:31 Multivitamins,Therapeutic 1 Tab Tab PO 10/26/22 11:59 1 tab 1200 MONE Administration Pantoprazole Sodium 40 mg 09/26/22 10:00 09/28/22 10:06 Pantoprazole 40 Mg Vial IV 10/26/22 09:59 40 mg Q24H10 MONE Administration Potassium Chloride 20 meq 09/28/22 10:00 09/28/22 10:07 Potassium Chloride Tab 10 Meq Tab PO 10/28/22 09:59 20 meq BID MONE Administration Simvastatin 20 mg 09/26/22 10:00 09/28/22 10:07 Simvastatin 20 Mg Tablet PO 10/26/22 09:59 20 mg DAILY MONE Administration Discontinued Medications Generic Name Dose Route Start Last Admin Trade Name Mark PRN Reason Stop Dose Admin Acetaminophen 975 mg 09/25/22 15:37 09/25/22 15:00 Acetaminophen 325 Mg Tablet PO 09/25/22 15:38 975 mg STAT STA Administration Acetaminophen 975 mg 09/25/22 18:32 Acetaminophen 325 Mg Tablet PO 09/25/22 18:33 .STK-MED ONE Albuterol/Ipratropium 3 ml 09/25/22 15:37 09/25/22 15:30 Ipratropium/Albuterol Sulfate 3 Ml Ampul.[facility] 09/25/22 15:38 3 ml STAT ONE Administration Albuterol/Ipratropium 3 ml 09/25/22 19:00 09/25/22 22:20 Ipratropium/Albuterol Sulfate 3 Ml Ampul.[facility] 10/25/22 18:59 Not Given Q6HRT [facility] Albuterol/Ipratropium 3 ml 09/25/22 18:32 Ipratropium/Albuterol Sulfate 3 Ml Ampul.[facility] 09/25/22 18:33 .STK-MED ONE Aspirin 324 mg 09/25/22 16:49 09/25/22 17:11 Aspirin 81 Mg Tab.Chew PO 09/25/22 16:50 324 mg STAT ONE Administration Aspirin Confirm 09/25/22 17:01 Aspirin 81 Mg Tab.Chew Administered 09/25/22 17:02 Dose 324 mg .ROUTE .STK-MED ONE Methylprednisolone Sodium 0 mg 09/26/22 00:00 09/27/22 05:08 Succinate 40 mg/ Sterile Water IV 10/26/22 00:00 40 mg 2 ml Q6HT MONE Administration Dexamethasone Sodium Phosphate 6 mg 09/25/22 16:49 09/25/22 17:11 Dexamethasone Sod Phosphate 10 Mg/Ml IV 09/25/22 16:50 6 mg STAT ONE Administration Dexamethasone Sodium Phosphate Confirm 09/25/22 17:01 Dexamethasone Sod Phosphate 10 Mg/Ml Administered 09/25/22 17:02 Dose 10 mg .ROUTE .STK-MED ONE Famotidine Confirm 09/25/22 22:48 Famotidine 20 Mg/1 Vial Administered 09/25/22 22:49 Dose 20 mg IV .STK-MED ONE Ceftriaxone Sodium/Dextrose 1 g in 50 mls @ 100 mls/hr 09/25/22 16:34 09/25/22 17:41 Rocephin 1 Gm-D5w 50 Ml Bag IV 09/25/22 17:03 Infused STAT STA Infusion Azithromycin 500 mg in 250 mls @ 250 mls/hr 09/25/22 16:34 09/25/22 17:21 Zithromax 500 Mg/ 250 Ml Nacl Premix IV 09/25/22 17:33 250 mls/hr STAT STA 250 mls/hr Administration Ceftriaxone Sodium/Dextrose Confirm 09/25/22 17:01 Rocephin 1 Gm-D5w 50 Ml Bag Administered 09/25/22 17:02 Dose 1 g in 50 mls @ ud IV .STK-MED ONE Azithromycin Confirm 09/25/22 17:18 Zithromax 500 Mg/ 250 Ml Nacl Premix Administered 09/25/22 17:19 Dose 500 mg in 250 mls @ ud IV .STK-MED ONE Azithromycin Confirm 09/25/22 17:20 Zithromax 500 Mg/ 250 Ml Nacl Premix Administered 09/25/22 17:21 Dose 500 mg in 250 mls @ ud IV .STK-MED ONE Potassium Chloride/Sodium Chloride 1,000 mls @ 75 mls/hr 09/25/22 18:33 09/27/22 05:16 Sodium Chloride 0.9% W/ 20 Meq Kcl/Liter IV 10/25/22 18:32 75 mls/hr .[id number] MONE Administration Sodium Chloride 500 mls @ ud 09/25/22 18:32 Sodium Chloride 0.9% 500 Ml IV 09/25/22 18:33 .STK-MED ONE Insulin Human Regular Confirm 09/25/22 22:52 Insulin Regular, Human 1 Unit Administered 09/25/22 22:53 Dose 3 unit .ROUTE .STK-MED ONE Methylprednisolone Sodium Succinate Confirm 09/25/22 23:13 Methylprednisolone Sod Suc 40m 40 Mg/Ml Vial Administered 09/25/22 23:14 Dose 40 mg .ROUTE .STK-MED ONE Methylprednisolone Sodium Succinate Confirm 09/26/22 05:09 Methylprednisolone Sod Suc 40m 40 Mg/Ml Vial Administered 09/26/22 05:10 Dose 40 mg .ROUTE .STK-MED ONE Metoprolol Tartrate Confirm 09/25/22 22:52 Metoprolol Tartrate 25 Mg Tab Administered 09/25/22 22:53 Dose 25 mg .ROUTE .STK-MED ONE Ondansetron HCl 4 mg 09/25/22 15:37 09/25/22 16:02 Ondansetron Hcl 4 Mg/2 Ml Vial IV 09/25/22 15:38 4 mg STAT ONE Administration Ondansetron HCl 4 mg 09/25/22 18:32 Ondansetron Hcl 4 Mg/2 Ml Vial IV 09/25/22 18:33 .STK-MED ONE Potassium Chloride 10 meq 09/27/22 10:00 09/27/22 22:23 Potassium Chloride Tab 10 Meq Tab PO 10/27/22 09:59 10 meq BID MONE Administration Sterile Water Confirm 09/25/22 23:14 Water For Injection,Sterile 10 Ml Vial Administered 09/25/22 23:15 Dose 10 ml IJ .STK-MED ONE Lab/Rad Data: Laboratory Result Diagrams 09/27/22 04:47 09/27/22 04:47 Laboratory Results 09/27/22 09/27/22 09/27/22 Range/Units 06:29 05:20 04:47 WBC (4.0-10.5) x10^3/uL RBC (4.1-5.4) x10^6/uL Hgb (12.0-16.0) g/dL Hct (35-47) % MCV (78-100) fL MCH (26-32) pg MCHC (32-36) g/dL RDW (11.5-14.0) % Plt Count (150-450) x10^3/uL MPV (7.5-11.0) fL Gran % (36.0-66.0) % Immature Gran % (Auto) (0.00-0.4) % Nucleat RBC Rel Count (0.00-0.1) % Eos # (Auto) (0-0.5) x10^3/uL Immature Gran # (Auto) (0.00-0.03) x10^3u/L Absolute Lymphs (auto) (1.0-4.6) x10^3/uL Absolute Monos (auto) (0.0-1.3) x10^3/uL Absolute Nucleated RBC (0.00-0.01) x10^3u/L Lymphocytes % (24.0-44.0) % Monocytes % (0.0-12.0) % Eosinophils % (0.00-5.0) % Basophils % (0.0-0.4) % Absolute Granulocytes (1.4-6.9) x10^3/uL Basophils # (0-0.4) x10^3/uL D-Dimer 0.65 H* (0.0-0.50) mg/L Puncture Site pCO2 (35-45) mmHg pO2 (75-100) mmHg Base Excess (-2.0-2.0) O2 Saturation (94-100) g/dF ABG pH (7.35-7.45) ABG HCO3 (22-28) ABG O2 Sat (Measured) (95-100) % Jose Test A-a Gradient a/A Ratio Hemoglobin Carboxyhemoglobin (0.0-6.9) % THgb Methemoglobin (1.4-1.5) % Potassium 3.9 (3.5-5.1) Temperature C POC O2 Flow Rate % Sodium 138 (137-145) mmol/L Chloride 104 (98-107) mmol/L Carbon Dioxide 21 L (22-30) mmol/L Anion Gap 17.4 H (5-15) MEQ/L BUN 28 H (7-17) mg/dL Creatinine 1.61 H (0.52-1.04) mg/dL Estimated GFR 32.1 ML/MIN Glucose 258 H (74-106) mg/dL POC Glucometer 250 H (74 to 106) mg/dL Hemoglobin A1c (4.5-6.0) % Lactic Acid (0.4-2.0) Calcium 8.7 (8.4-10.2) mg/dL Magnesium 2.0 (1.6-2.3) mg/dL Total Bilirubin 0.30 (0.2-1.3) mg/dL AST 57 H (14-36) U/L ALT 30 (0-35) U/L Alkaline Phosphatase 53 (38-126) U/L Troponin I (0.000-0.034) ng/mL NT-Pro-B Natriuret Pep (<300) pg/mL Serum Total Protein 7.0 (6.3-8.2) g/dL Albumin 3.8 (3.5-5.0) g/dL Lipase (23-300) U/L Procalcitonin (0.030-0.080) ng/mL Urine Color (Yellow) Urine Appearance (Clear) Urine pH (4.6-8.0) Ur Specific [place] (1.005-1.030) Urine Protein (Negative) Urine Glucose (UA) (Negative) mg/dL Urine Ketones (Negative) Urine Blood (Negative) Urine Nitrite (Negative) Urine Bilirubin (Negative) Urine Urobilinogen (0.2) mg/dL Ur Leukocyte Esterase (Negative) U Hyaline Cast (Auto) (0-2) /LPF Urine Microscopic RBC (0-5) /HPF Urine Microscopic WBC (0-5) /HPF Ur Epithelial Cells (None Seen) /HPF Urine Bacteria (None Seen) /HPF Urine Culture Reflexed (NO) Influenza Type A Ag (NEGATIVE) Influenza Type B Ag (NEGATIVE) RSV (PCR) (NEGATIVE) SARS-CoV-2 (PCR) (NEGATIVE) Slides for Path Review 09/27/22 09/26/22 09/26/22 Range/Units 04:47 21:22 16:12 WBC 16.6 H (4.0-10.5) x10^3/uL RBC 3.00 L (4.1-5.4) x10^6/uL Hgb 9.2 L (12.0-16.0) g/dL Hct 28.7 L (35-47) % MCV 95.7 (78-100) fL MCH 30.7 (26-32) pg MCHC 32.1 (32-36) g/dL RDW 14.6 H (11.5-14.0) % Plt Count 406 (150-450) x10^3/uL MPV 9.4 (7.5-11.0) fL Gran % 93.2 H (36.0-66.0) % Immature Gran % (Auto) 0.6 H (0.00-0.4) % Nucleat RBC Rel Count 0.0 (0.00-0.1) % Eos # (Auto) 0 (0-0.5) x10^3/uL Immature Gran # (Auto) 0.10 H (0.00-0.03) x10^3u/L Absolute Lymphs (auto) 0.49 L (1.0-4.6) x10^3/uL Absolute Monos (auto) 0.51 (0.0-1.3) x10^3/uL Absolute Nucleated RBC 0.00 (0.00-0.01) x10^3u/L Lymphocytes % 3.0 L (24.0-44.0) % Monocytes % 3.1 (0.0-12.0) % Eosinophils % 0.0 (0.00-5.0) % Basophils % 0.1 (0.0-0.4) % Absolute Granulocytes 15.44 H (1.4-6.9) x10^3/uL Basophils # 0.01 (0-0.4) x10^3/uL D-Dimer (0.0-0.50) mg/L Puncture Site pCO2 (35-45) mmHg pO2 (75-100) mmHg Base Excess (-2.0-2.0) O2 Saturation (94-100) g/dF ABG pH (7.35-7.45) ABG HCO3 (22-28) ABG O2 Sat (Measured) (95-100) % Jose Test A-a Gradient a/A Ratio Hemoglobin Carboxyhemoglobin (0.0-6.9) % THgb Methemoglobin (1.4-1.5) % Potassium (3.5-5.1) Temperature C POC O2 Flow Rate % Sodium (137-145) mmol/L Chloride (98-107) mmol/L Carbon Dioxide (22-30) mmol/L Anion Gap (5-15) MEQ/L BUN (7-17) mg/dL Creatinine (0.52-1.04) mg/dL Estimated GFR ML/MIN Glucose (74-106) mg/dL POC Glucometer 287 H 234 H (74 to 106) mg/dL Hemoglobin A1c (4.5-6.0) % Lactic Acid (0.4-2.0) Calcium (8.4-10.2) mg/dL Magnesium (1.6-2.3) mg/dL Total Bilirubin (0.2-1.3) mg/dL AST (14-36) U/L ALT (0-35) U/L Alkaline Phosphatase (38-126) U/L Troponin I (0.000-0.034) ng/mL NT-Pro-B Natriuret Pep (<300) pg/mL Serum Total Protein (6.3-8.2) g/dL Albumin (3.5-5.0) g/dL Lipase (23-300) U/L Procalcitonin (0.030-0.080) ng/mL Urine Color (Yellow) Urine Appearance (Clear) Urine pH (4.6-8.0) Ur Specific [place] (1.005-1.030) Urine Protein (Negative) Urine Glucose (UA) (Negative) mg/dL Urine Ketones (Negative) Urine Blood (Negative) Urine Nitrite (Negative) Urine Bilirubin (Negative) Urine Urobilinogen (0.2) mg/dL Ur Leukocyte Esterase (Negative) U Hyaline Cast (Auto) (0-2) /LPF Urine Microscopic RBC (0-5) /HPF Urine Microscopic WBC (0-5) /HPF Ur Epithelial Cells (None Seen) /HPF Urine Bacteria (None Seen) /HPF Urine Culture Reflexed (NO) Influenza Type A Ag (NEGATIVE) Influenza Type B Ag (NEGATIVE) RSV (PCR) (NEGATIVE) SARS-CoV-2 (PCR) (NEGATIVE) Slides for Path Review YES 09/26/22 09/26/22 09/26/22 Range/Units 11:59 08:00 07:22 WBC (4.0-10.5) x10^3/uL RBC (4.1-5.4) x10^6/uL Hgb (12.0-16.0) g/dL Hct (35-47) % MCV (78-100) fL MCH (26-32) pg MCHC (32-36) g/dL RDW (11.5-14.0) % Plt Count (150-450) x10^3/uL MPV (7.5-11.0) fL Gran % (36.0-66.0) % Immature Gran % (Auto) (0.00-0.4) % Nucleat RBC Rel Count (0.00-0.1) % Eos # (Auto) (0-0.5) x10^3/uL Immature Gran # (Auto) (0.00-0.03) x10^3u/L Absolute Lymphs (auto) (1.0-4.6) x10^3/uL Absolute Monos (auto) (0.0-1.3) x10^3/uL Absolute Nucleated RBC (0.00-0.01) x10^3u/L Lymphocytes % (24.0-44.0) % Monocytes % (0.0-12.0) % Eosinophils % (0.00-5.0) % Basophils % (0.0-0.4) % Absolute Granulocytes (1.4-6.9) x10^3/uL Basophils # (0-0.4) x10^3/uL D-Dimer 0.81 H* (0.0-0.50) mg/L Puncture Site pCO2 (35-45) mmHg pO2 (75-100) mmHg Base Excess (-2.0-2.0) O2 Saturation (94-100) g/dF ABG pH (7.35-7.45) ABG HCO3 (22-28) ABG O2 Sat (Measured) (95-100) % Jose Test A-a Gradient a/A Ratio Hemoglobin Carboxyhemoglobin (0.0-6.9) % THgb Methemoglobin (1.4-1.5) % Potassium (3.5-5.1) Temperature C POC O2 Flow Rate % Sodium (137-145) mmol/L Chloride (98-107) mmol/L Carbon Dioxide (22-30) mmol/L Anion Gap (5-15) MEQ/L BUN (7-17) mg/dL Creatinine (0.52-1.04) mg/dL Estimated GFR ML/MIN Glucose (74-106) mg/dL POC Glucometer 200 H 217 H (74 to 106) mg/dL Hemoglobin A1c (4.5-6.0) % Lactic Acid (0.4-2.0) Calcium (8.4-10.2) mg/dL Magnesium (1.6-2.3) mg/dL Total Bilirubin (0.2-1.3) mg/dL AST (14-36) U/L ALT (0-35) U/L Alkaline Phosphatase (38-126) U/L Troponin I (0.000-0.034) ng/mL NT-Pro-B Natriuret Pep (<300) pg/mL Serum Total Protein (6.3-8.2) g/dL Albumin (3.5-5.0) g/dL Lipase (23-300) U/L Procalcitonin (0.030-0.080) ng/mL Urine Color (Yellow) Urine Appearance (Clear) Urine pH (4.6-8.0) Ur Specific [place] (1.005-1.030) Urine Protein (Negative) Urine Glucose (UA) (Negative) mg/dL Urine Ketones (Negative) Urine Blood (Negative) Urine Nitrite (Negative) Urine Bilirubin (Negative) Urine Urobilinogen (0.2) mg/dL Ur Leukocyte Esterase (Negative) U Hyaline Cast (Auto) (0-2) /LPF Urine Microscopic RBC (0-5) /HPF Urine Microscopic WBC (0-5) /HPF Ur Epithelial Cells (None Seen) /HPF Urine Bacteria (None Seen) /HPF Urine Culture Reflexed (NO) Influenza Type A Ag (NEGATIVE) Influenza Type B Ag (NEGATIVE) RSV (PCR) (NEGATIVE) SARS-CoV-2 (PCR) (NEGATIVE) Slides for Path Review 09/26/22 09/26/22 09/25/22 Range/Units 04:35 04:35 23:08 WBC 8.2 (4.0-10.5) x10^3/uL RBC 3.04 L (4.1-5.4) x10^6/uL Hgb 9.3 L (12.0-16.0) g/dL Hct 28.8 L (35-47) % MCV 94.7 (78-100) fL MCH 30.6 (26-32) pg MCHC 32.3 (32-36) g/dL RDW 14.7 H (11.5-14.0) % Plt Count 382 (150-450) x10^3/uL MPV 8.9 (7.5-11.0) fL Gran % 93.0 H (36.0-66.0) % Immature Gran % (Auto) 0.4 (0.00-0.4) % Nucleat RBC Rel Count 0.0 (0.00-0.1) % Eos # (Auto) 0 (0-0.5) x10^3/uL Immature Gran # (Auto) 0.03 (0.00-0.03) x10^3u/L Absolute Lymphs (auto) 0.38 L (1.0-4.6) x10^3/uL Absolute Monos (auto) 0.15 (0.0-1.3) x10^3/uL Absolute Nucleated RBC 0.00 (0.00-0.01) x10^3u/L Lymphocytes % 4.7 L (24.0-44.0) % Monocytes % 1.8 (0.0-12.0) % Eosinophils % 0.0 (0.00-5.0) % Basophils % 0.1 (0.0-0.4) % Absolute Granulocytes 7.58 H (1.4-6.9) x10^3/uL Basophils # 0.01 (0-0.4) x10^3/uL D-Dimer (0.0-0.50) mg/L Puncture Site pCO2 (35-45) mmHg pO2 (75-100) mmHg Base Excess (-2.0-2.0) O2 Saturation (94-100) g/dF ABG pH (7.35-7.45) ABG HCO3 (22-28) ABG O2 Sat (Measured) (95-100) % Jose Test A-a Gradient a/A Ratio Hemoglobin Carboxyhemoglobin (0.0-6.9) % THgb Methemoglobin (1.4-1.5) % Potassium 4.1 D (3.5-5.1) Temperature C POC O2 Flow Rate % Sodium 136 L (137-145) mmol/L Chloride 102 (98-107) mmol/L Carbon Dioxide 22 (22-30) mmol/L Anion Gap 16.1 H (5-15) MEQ/L BUN 19 H (7-17) mg/dL Creatinine 1.63 H (0.52-1.04) mg/dL Estimated GFR 31.6 ML/MIN Glucose 224 H (74-106) mg/dL POC Glucometer (74 to 106) mg/dL Hemoglobin A1c (4.5-6.0) % Lactic Acid (0.4-2.0) Calcium 8.5 D (8.4-10.2) mg/dL Magnesium (1.6-2.3) mg/dL Total Bilirubin 0.40 (0.2-1.3) mg/dL AST 44 H (14-36) U/L ALT 25 (0-35) U/L Alkaline Phosphatase 53 (38-126) U/L Troponin I 1.070 H* (0.000-0.034) ng/mL NT-Pro-B Natriuret Pep (<300) pg/mL Serum Total Protein 7.2 (6.3-8.2) g/dL Albumin 3.9 (3.5-5.0) g/dL Lipase (23-300) U/L Procalcitonin (0.030-0.080) ng/mL Urine Color (Yellow) Urine Appearance (Clear) Urine pH (4.6-8.0) Ur Specific [place] (1.005-1.030) Urine Protein (Negative) Urine Glucose (UA) (Negative) mg/dL Urine Ketones (Negative) Urine Blood (Negative) Urine Nitrite (Negative) Urine Bilirubin (Negative) Urine Urobilinogen (0.2) mg/dL Ur Leukocyte Esterase (Negative) U Hyaline Cast (Auto) (0-2) /LPF Urine Microscopic RBC (0-5) /HPF Urine Microscopic WBC (0-5) /HPF Ur Epithelial Cells (None Seen) /HPF Urine Bacteria (None Seen) /HPF Urine Culture Reflexed (NO) Influenza Type A Ag (NEGATIVE) Influenza Type B Ag (NEGATIVE) RSV (PCR) (NEGATIVE) SARS-CoV-2 (PCR) (NEGATIVE) Slides for Path Review YES 09/25/22 09/25/22 09/25/22 Range/Units 21:22 19:20 19:20 WBC (4.0-10.5) x10^3/uL RBC (4.1-5.4) x10^6/uL Hgb (12.0-16.0) g/dL Hct (35-47) % MCV (78-100) fL MCH (26-32) pg MCHC (32-36) g/dL RDW (11.5-14.0) % Plt Count (150-450) x10^3/uL MPV (7.5-11.0) fL Gran % (36.0-66.0) % Immature Gran % (Auto) (0.00-0.4) % Nucleat RBC Rel Count (0.00-0.1) % Eos # (Auto) (0-0.5) x10^3/uL Immature Gran # (Auto) (0.00-0.03) x10^3u/L Absolute Lymphs (auto) (1.0-4.6) x10^3/uL Absolute Monos (auto) (0.0-1.3) x10^3/uL Absolute Nucleated RBC (0.00-0.01) x10^3u/L Lymphocytes % (24.0-44.0) % Monocytes % (0.0-12.0) % Eosinophils % (0.00-5.0) % Basophils % (0.0-0.4) % Absolute Granulocytes (1.4-6.9) x10^3/uL Basophils # (0-0.4) x10^3/uL D-Dimer (0.0-0.50) mg/L Puncture Site pCO2 (35-45) mmHg pO2 (75-100) mmHg Base Excess (-2.0-2.0) O2 Saturation (94-100) g/dF ABG pH (7.35-7.45) ABG HCO3 (22-28) ABG O2 Sat (Measured) (95-100) % Jose Test A-a Gradient a/A Ratio Hemoglobin Carboxyhemoglobin (0.0-6.9) % THgb Methemoglobin (1.4-1.5) % Potassium (3.5-5.1) Temperature C POC O2 Flow Rate % Sodium (137-145) mmol/L Chloride (98-107) mmol/L Carbon Dioxide (22-30) mmol/L Anion Gap (5-15) MEQ/L BUN (7-17) mg/dL Creatinine (0.52-1.04) mg/dL Estimated GFR ML/MIN Glucose (74-106) mg/dL POC Glucometer 191 H (74 to 106) mg/dL Hemoglobin A1c 7.48 H (4.5-6.0) % Lactic Acid (0.4-2.0) Calcium (8.4-10.2) mg/dL Magnesium (1.6-2.3) mg/dL Total Bilirubin (0.2-1.3) mg/dL AST (14-36) U/L ALT (0-35) U/L Alkaline Phosphatase (38-126) U/L Troponin I 0.988 H* (0.000-0.034) ng/mL NT-Pro-B Natriuret Pep (<300) pg/mL Serum Total Protein (6.3-8.2) g/dL Albumin (3.5-5.0) g/dL Lipase (23-300) U/L Procalcitonin (0.030-0.080) ng/mL Urine Color (Yellow) Urine Appearance (Clear) Urine pH (4.6-8.0) Ur Specific [place] (1.005-1.030) Urine Protein (Negative) Urine Glucose (UA) (Negative) mg/dL Urine Ketones (Negative) Urine Blood (Negative) Urine Nitrite (Negative) Urine Bilirubin (Negative) Urine Urobilinogen (0.2) mg/dL Ur Leukocyte Esterase (Negative) U Hyaline Cast (Auto) (0-2) /LPF Urine Microscopic RBC (0-5) /HPF Urine Microscopic WBC (0-5) /HPF Ur Epithelial Cells (None Seen) /HPF Urine Bacteria (None Seen) /HPF Urine Culture Reflexed (NO) Influenza Type A Ag (NEGATIVE) Influenza Type B Ag (NEGATIVE) RSV (PCR) (NEGATIVE) SARS-CoV-2 (PCR) (NEGATIVE) Slides for Path Review 09/25/22 09/25/22 09/25/22 Range/Units 15:33 15:33 15:33 WBC (4.0-10.5) x10^3/uL RBC (4.1-5.4) x10^6/uL Hgb (12.0-16.0) g/dL Hct (35-47) % MCV (78-100) fL MCH (26-32) pg MCHC (32-36) g/dL RDW (11.5-14.0) % Plt Count (150-450) x10^3/uL MPV (7.5-11.0) fL Gran % (36.0-66.0) % Immature Gran % (Auto) (0.00-0.4) % Nucleat RBC Rel Count (0.00-0.1) % Eos # (Auto) (0-0.5) x10^3/uL Immature Gran # (Auto) (0.00-0.03) x10^3u/L Absolute Lymphs (auto) (1.0-4.6) x10^3/uL Absolute Monos (auto) (0.0-1.3) x10^3/uL Absolute Nucleated RBC (0.00-0.01) x10^3u/L Lymphocytes % (24.0-44.0) % Monocytes % (0.0-12.0) % Eosinophils % (0.00-5.0) % Basophils % (0.0-0.4) % Absolute Granulocytes (1.4-6.9) x10^3/uL Basophils # (0-0.4) x10^3/uL D-Dimer (0.0-0.50) mg/L Puncture Site pCO2 (35-45) mmHg pO2 (75-100) mmHg Base Excess (-2.0-2.0) O2 Saturation (94-100) g/dF ABG pH (7.35-7.45) ABG HCO3 (22-28) ABG O2 Sat (Measured) (95-100) % Jose Test A-a Gradient a/A Ratio Hemoglobin Carboxyhemoglobin (0.0-6.9) % THgb Methemoglobin (1.4-1.5) % Potassium (3.5-5.1) Temperature C POC O2 Flow Rate % Sodium (137-145) mmol/L Chloride (98-107) mmol/L Carbon Dioxide (22-30) mmol/L Anion Gap (5-15) MEQ/L BUN (7-17) mg/dL Creatinine (0.52-1.04) mg/dL Estimated GFR ML/MIN Glucose (74-106) mg/dL POC Glucometer (74 to 106) mg/dL Hemoglobin A1c (4.5-6.0) % Lactic Acid (0.4-2.0) Calcium (8.4-10.2) mg/dL Magnesium (1.6-2.3) mg/dL Total Bilirubin (0.2-1.3) mg/dL AST (14-36) U/L ALT (0-35) U/L Alkaline Phosphatase (38-126) U/L Troponin I 0.420 H* (0.000-0.034) ng/mL NT-Pro-B Natriuret Pep (<300) pg/mL Serum Total Protein (6.3-8.2) g/dL Albumin (3.5-5.0) g/dL Lipase (23-300) U/L Procalcitonin 0.054 (0.030-0.080) ng/mL Urine Color (Yellow) Urine Appearance (Clear) Urine pH (4.6-8.0) Ur Specific [place] (1.005-1.030) Urine Protein (Negative) Urine Glucose (UA) (Negative) mg/dL Urine Ketones (Negative) Urine Blood (Negative) Urine Nitrite (Negative) Urine Bilirubin (Negative) Urine Urobilinogen (0.2) mg/dL Ur Leukocyte Esterase (Negative) U Hyaline Cast (Auto) (0-2) /LPF Urine Microscopic RBC (0-5) /HPF Urine Microscopic WBC (0-5) /HPF Ur Epithelial Cells (None Seen) /HPF Urine Bacteria (None Seen) /HPF Urine Culture Reflexed (NO) Influenza Type A Ag NEGATIVE (NEGATIVE) Influenza Type B Ag NEGATIVE (NEGATIVE) RSV (PCR) NEGATIVE (NEGATIVE) SARS-CoV-2 (PCR) POSITIVE A (NEGATIVE) Slides for Path Review 09/25/22 09/25/22 09/25/22 Range/Units 15:33 15:33 15:30 WBC 7.8 (4.0-10.5) x10^3/uL RBC 3.01 L (4.1-5.4) x10^6/uL Hgb 9.2 L (12.0-16.0) g/dL Hct 28.8 L (35-47) % MCV 95.7 (78-100) fL MCH 30.6 (26-32) pg MCHC 31.9 L (32-36) g/dL RDW 14.6 H (11.5-14.0) % Plt Count 336 (150-450) x10^3/uL MPV 9.3 (7.5-11.0) fL Gran % 85.8 H (36.0-66.0) % Immature Gran % (Auto) 0.5 H (0.00-0.4) % Nucleat RBC Rel Count 0.0 (0.00-0.1) % Eos # (Auto) 0.02 (0-0.5) x10^3/uL Immature Gran # (Auto) 0.04 H (0.00-0.03) x10^3u/L Absolute Lymphs (auto) 0.33 L (1.0-4.6) x10^3/uL Absolute Monos (auto) 0.69 (0.0-1.3) x10^3/uL Absolute Nucleated RBC 0.00 (0.00-0.01) x10^3u/L Lymphocytes % 4.2 L (24.0-44.0) % Monocytes % 8.9 (0.0-12.0) % Eosinophils % 0.3 (0.00-5.0) % Basophils % 0.3 (0.0-0.4) % Absolute Granulocytes 6.68 (1.4-6.9) x10^3/uL Basophils # 0.02 (0-0.4) x10^3/uL D-Dimer (0.0-0.50) mg/L Puncture Site LEFT RADIAL pCO2 31 L (35-45) mmHg pO2 62 L (75-100) mmHg Base Excess -2.0 (-2.0-2.0) O2 Saturation 92.5 L (94-100) g/dF ABG pH 7.45 (7.35-7.45) ABG HCO3 21.5 L (22-28) ABG O2 Sat (Measured) 93.7 L (95-100) % Jose Test YES A-a Gradient 184 a/A Ratio 0.25 Hemoglobin 9.3 Carboxyhemoglobin 1.0 (0.0-6.9) % THgb Methemoglobin 0.3 L (1.4-1.5) % Potassium 3.2 L 3.5 (3.5-5.1) Temperature 37.0 C POC O2 Flow Rate 40 % Sodium 135 L (137-145) mmol/L Chloride 105 (98-107) mmol/L Carbon Dioxide 21 L (22-30) mmol/L Anion Gap 12.2 (5-15) MEQ/L BUN 16 (7-17) mg/dL Creatinine 1.62 H (0.52-1.04) mg/dL Estimated GFR 31.9 ML/MIN Glucose 127 H (74-106) mg/dL POC Glucometer (74 to 106) mg/dL Hemoglobin A1c (4.5-6.0) % Lactic Acid 0.6 (0.4-2.0) Calcium 7.3 L (8.4-10.2) mg/dL Magnesium 1.6 (1.6-2.3) mg/dL Total Bilirubin 0.40 (0.2-1.3) mg/dL AST 29 (14-36) U/L ALT 18 (0-35) U/L Alkaline Phosphatase 47 (38-126) U/L Troponin I (0.000-0.034) ng/mL NT-Pro-B Natriuret Pep 7460 (<300) pg/mL Serum Total Protein 6.5 (6.3-8.2) g/dL Albumin 3.4 L (3.5-5.0) g/dL Lipase 36 (23-300) U/L Procalcitonin (0.030-0.080) ng/mL Urine Color (Yellow) Urine Appearance (Clear) Urine pH (4.6-8.0) Ur Specific [place] (1.005-1.030) Urine Protein (Negative) Urine Glucose (UA) (Negative) mg/dL Urine Ketones (Negative) Urine Blood (Negative) Urine Nitrite (Negative) Urine Bilirubin (Negative) Urine Urobilinogen (0.2) mg/dL Ur Leukocyte Esterase (Negative) U Hyaline Cast (Auto) (0-2) /LPF Urine Microscopic RBC (0-5) /HPF Urine Microscopic WBC (0-5) /HPF Ur Epithelial Cells (None Seen) /HPF Urine Bacteria (None Seen) /HPF Urine Culture Reflexed (NO) Influenza Type A Ag (NEGATIVE) Influenza Type B Ag (NEGATIVE) RSV (PCR) (NEGATIVE) SARS-CoV-2 (PCR) (NEGATIVE) Slides for Path Review 09/25/22 Range/Units 15:22 WBC (4.0-10.5) x10^3/uL RBC (4.1-5.4) x10^6/uL Hgb (12.0-16.0) g/dL Hct (35-47) % MCV (78-100) fL MCH (26-32) pg MCHC (32-36) g/dL RDW (11.5-14.0) % Plt Count (150-450) x10^3/uL MPV (7.5-11.0) fL Gran % (36.0-66.0) % Immature Gran % (Auto) (0.00-0.4) % Nucleat RBC Rel Count (0.00-0.1) % Eos # (Auto) (0-0.5) x10^3/uL Immature Gran # (Auto) (0.00-0.03) x10^3u/L Absolute Lymphs (auto) (1.0-4.6) x10^3/uL Absolute Monos (auto) (0.0-1.3) x10^3/uL Absolute Nucleated RBC (0.00-0.01) x10^3u/L Lymphocytes % (24.0-44.0) % Monocytes % (0.0-12.0) % Eosinophils % (0.00-5.0) % Basophils % (0.0-0.4) % Absolute Granulocytes (1.4-6.9) x10^3/uL Basophils # (0-0.4) x10^3/uL D-Dimer (0.0-0.50) mg/L Puncture Site pCO2 (35-45) mmHg pO2 (75-100) mmHg Base Excess (-2.0-2.0) O2 Saturation (94-100) g/dF ABG pH (7.35-7.45) ABG HCO3 (22-28) ABG O2 Sat (Measured) (95-100) % Jose Test A-a Gradient a/A Ratio Hemoglobin Carboxyhemoglobin (0.0-6.9) % THgb Methemoglobin (1.4-1.5) % Potassium (3.5-5.1) Temperature C POC O2 Flow Rate % Sodium (137-145) mmol/L Chloride (98-107) mmol/L Carbon Dioxide (22-30) mmol/L Anion Gap (5-15) MEQ/L BUN (7-17) mg/dL Creatinine (0.52-1.04) mg/dL Estimated GFR ML/MIN Glucose (74-106) mg/dL POC Glucometer (74 to 106) mg/dL Hemoglobin A1c (4.5-6.0) % Lactic Acid (0.4-2.0) Calcium (8.4-10.2) mg/dL Magnesium (1.6-2.3) mg/dL Total Bilirubin (0.2-1.3) mg/dL AST (14-36) U/L ALT (0-35) U/L Alkaline Phosphatase (38-126) U/L Troponin I (0.000-0.034) ng/mL NT-Pro-B Natriuret Pep (<300) pg/mL Serum Total Protein (6.3-8.2) g/dL Albumin (3.5-5.0) g/dL Lipase (23-300) U/L Procalcitonin (0.030-0.080) ng/mL Urine Color Yellow (Yellow) Urine Appearance Clear (Clear) Urine pH 7.5 (4.6-8.0) Ur Specific [place] 1.015 (1.005-1.030) Urine Protein 100 A (Negative) Urine Glucose (UA) Negative (Negative) mg/dL Urine Ketones Trace A (Negative) Urine Blood Negative (Negative) Urine Nitrite Negative (Negative) Urine Bilirubin Negative (Negative) Urine Urobilinogen 1.0 A (0.2) mg/dL Ur Leukocyte Esterase Negative (Negative) U Hyaline Cast (Auto) NONE SEEN (0-2) /LPF Urine Microscopic RBC 0-2 (0-5) /HPF Urine Microscopic WBC 0-2 (0-5) /HPF Ur Epithelial Cells Rare (None Seen) /HPF Urine Bacteria None Seen (None Seen) /HPF Urine Culture Reflexed NO (NO) Influenza Type A Ag (NEGATIVE) Influenza Type B Ag (NEGATIVE) RSV (PCR) (NEGATIVE) SARS-CoV-2 (PCR) (NEGATIVE) Slides for Path Review - Progress Progress: improved, re-examined Air Movement: fair Progress Note: 09/25/22 18:14 Please see H&P from previous chart/paper chart 87 years old is evaluated for worsening cough with shortness of breath along with vomiting and diarrhea since yesterday with a positive COVID-19 contact. Patient was hypoxic on EMS arrival and was placed on oxygen, on presentation in the ER she was desatting to upper 70s, is given steroids and neb treatment and currently she is on 5 L oxygen with saturation in mid 90s. Chest x-ray showed bilateral airspace disease and is given a dose of antibiotics as well. Has normal white count, normal procalcitonin, feeling much better on reevaluation after fluids and breathing treatments. ABG showed hypoxemia but no hypercapnia. Has elevated troponin and EKG showed paced rhythm. Patient denies any chest pain or pressure. Patient has a history of CHF and I have discussed with daughter and patient in detail about elevated troponin which could be secondary to NSTEMI/ischemic event and needs to be transferred but they do not want any aggressive measures to be done and patient is DNR and wants to stay in here. I have discussed with , reviewed history, work-up and agreed with admission, since it seems to be viral etiology respiratory failure, will hold off on antibiotics. Blood Culture(s) Obtained: Yes Antibiotics given: Yes Discussed with Dr.: Israel Will see patient in: hospital (observation) Counseled pt/family regarding: lab results, diagnosis, rad results Medical Desision Making - Independent Historian Additional History obtained from: Child - Discussion of managment Care discussed with:: hospitalist () Reviewed:: Test results, Need for additional workup Agreed on:: Treatment plan, place in obs Will see patient: in hospital - Diagnostic Testing Diagnostic test were ordered, analyzed, and reviewed by me: Yes Radiological Interpretation: Interpreted by me, Reviewed by me - Risk of complications The pt has a mod risk of morbidity or mortality based on: Need for prescription drug management The pt has a high risk of morbidity or mortality based on: Drug therapy requiring intensive monitoring for toxicity, Decision regarding hospitilization or escalation of hosp level of care - Departure Departure Disposition: Observation Clinical Impression: Pneumonia due to COVID-19 virus, NSTEMI (non-ST elevated myocardial inf arction), Vomiting and diarrhea Respiratory failure Qualifiers: Chronicity: acute Respiratory failure complication: hypoxia Qualified Code(s): J96.01 - Acute respiratory failure with hypoxia Condition: Fair Critical Care Time: No
[2022-09-25] MEDS ORDERED: Sodium Chloride 0.9% 500 ML 500 ML IV ONE (18:32)
[2022-09-25] MEDS ORDERED: TYLENOL 325 MG PO ONE (18:32)
[2022-09-25] MEDS ORDERED: TYLENOL 325 MG PO PRN (18:33)
[2022-09-25] MEDS ORDERED: DUONEB 0.5-3 MG/3 ml Neb IH SCH (19:00)
[2022-09-25] MEDS: Sodium Chloride 0.9% W/ 20 mEq KCl/LITER 1,000 ML IV SCH (19:35)
[2022-09-25] MEDS ORDERED: Pepcid 20 MG VIAL IV ONE (22:48)
[2022-09-25] MEDS ORDERED: Lopressor 25MG Tab ONE (22:52)
[2022-09-25] MEDS ORDERED: HUMULIN R ONE (22:52)
[2022-09-25] MEDS: Novolin N SQ SCH (23:02)
[2022-09-25] MEDS: Cozaar 50 MG PO SCH (23:03)
[2022-09-25] MEDS: HUMALOG SQ PRN (23:10)
[2022-09-25] MEDS: Lopressor 50 MG PO SCH (23:10)
[2022-09-25] MEDS: Pepcid 20 MG PO SCH (23:11)
[2022-09-25] MEDS ORDERED: solu-MEDROL ONE (23:13)
[2022-09-25] MEDS ORDERED: Sterile H2O 10 ml IJ ONE (23:14)
[2022-09-25] MEDS: solu-MEDROL 40 MG, Sterile H2O 10 ml 2 ML IV SCH ×2 (23:16)
[2022-09-26 04:44] LABS: Absolute Neutrophil Ct (ANC) 7.58 x10^3/uL (1.4-6.9); BASOPHIL % 0.1 % (0.0-0.4); Basophil (Absolute #) 0.01 x10^3/uL (0-0.4); Eosinophil (Absolute #) 0 x10^3/uL (0-0.5); Hematocrit 28.8 % (35-47); Hemoglobin 9.3 g/dL (12.0-16.0); IMMATURE GRAN # 0.03 x10^3u/L (0.00-0.03); IMMATURE GRAN % 0.4 % (0.00-0.4); Lymphocyte (Absolute #) 0.38 x10^3/uL (1.0-4.6); Lymphocytes % 4.7 % (24.0-44.0); Mean Cell Volume 94.7 fL (78-100); Mean Corpuscular Hemoglobin 30.6 pg (26-32); Mean Corpuscular Hgb Concent. 32.3 g/dL (32-36); Mean Platelet Volume 8.9 fL (7.5-11.0); Monocyte (Absolute #) 0.15 x10^3/uL (0.0-1.3); Monocytes % 1.8 % (0.0-12.0); Platelet Count 382 x10^3/uL (150-450); Red Blood Count 3.04 x10^6/uL (4.1-5.4); Red Cell Distribution Width 14.7 % (11.5-14.0); White Blood Count 8.2 x10^3/uL (4.0-10.5)
[2022-09-26] MEDS ORDERED: solu-MEDROL ONE (05:09)
[2022-09-26 05:10] LABS: ALBUMIN 3.9 g/dL (3.5-5.0); ANION GAP 16.1 MEQ/L (5-15); BILIRUBIN,TOTAL 0.4 mg/dL (0.2-1.3); Calcium 8.5 mg/dL (8.4-10.2); Creatinine 1 1.63 mg/dL (0.52-1.04); EST GLOMERULAR FILTRATION RATE 31.6 ML/MIN; Potassium 4.1 mmol/L (3.5-5.1); Total Protein 7.2 g/dL (6.3-8.2)
[2022-09-26] MEDS: solu-MEDROL 40 MG, Sterile H2O 10 ml 2 ML IV SCH ×8 (06:14→23:34)
[2022-09-26 07:23] LABS: Slide Review 1 YES
[2022-09-26] MEDS: Novolin N SQ SCH ×2 (08:10→21:56)
[2022-09-26] MEDS: HUMALOG SQ PRN ×3 (08:10→21:55)
[2022-09-26] MEDS: Namenda 5 MG PO SCH (08:12)
[2022-09-26] MEDS: Pepcid 20 MG PO SCH ×2 (08:12→21:54)
[2022-09-26] MEDS: ZOCOR 20MG PO SCH (08:12)
[2022-09-26] MEDS: Tricor 145 MG PO SCH (08:13)
[2022-09-26] MEDS: SYNTHROID 25 MCG PO SCH (08:13)
[2022-09-26] MEDS: NORVASC 5 MG PO SCH (08:13)
[2022-09-26] MEDS: Lopressor 50 MG PO SCH ×2 (08:14→21:54)
[2022-09-26] MEDS: Imdur 30 MG PO SCH (08:14)
[2022-09-26] MEDS: FOLATE 1 MG PO SCH (08:15)
[2022-09-26] MEDS: Glucophage 500 MG PO SCH ×2 (08:17→17:05)
[2022-09-26] MEDS: PROTONIX 40 MG IV IV SCH (08:17)
--- NOTE | 2022-09-26 08:52 | PCM.HP ---
History of Present Illness - Chief Complaint Chief Complaint: COVID-pneumonia History of Present Illness: is a 87 year old female patient of Dr Morocho who presented to the ER yesterday with a day of vomiting and diarrhea, cough and shortness of breath. She is currently on room air, feeling much better at this time and on room air. - Review of Systems Constitutional: No Fever, No Chills Respiratory: Cough Cardiac: No Chest Pain, No Edema, No Syncope Abdominal/Gastrointestinal: Nausea, Vomiting, Diarrhea, No Abdominal Pain Genitourinary Symptoms: No Dysuria Skin: No Rash All Other Systems: Reviewed and Negative Medications & Allergies Home Medications: Home Medication List Amlodipine Besylate 5 mg PO DAILY 07/04/17 [History Confirmed 09/25/22] Fenofibrate Nanocrystallized [Fenofibrate] 48 mg PO DAILY 07/04/17 [History Confirmed 09/25/22] Metformin HCl 500 mg PO BIDWM 07/04/17 [History Confirmed 09/25/22] Metoprolol Tartrate 50 mg [Lopressor 50 MG] 25 mg PO BID 07/04/17 [History Confirmed 09/25/22] NPH, Human Insulin Isophane [Humulin N] 10 units SQ QAM 07/04/17 [History Confirmed 09/25/22] Clopidogrel Bisulfate [Clopidogrel] 75 mg PO 1200 08/14/19 [History Confirmed 09/25/22] Folic Acid 1 mg [Folate 1 mg] 1 mg PO DAILY 08/14/19 [History Confirmed 09/25/22] Isosorbide Mononitrate [Isosorbide Mononitrate ER] 30 mg PO DAILY 08/14/19 [History Confirmed 09/25/22] Losartan Potassium 100 mg PO HS 08/14/19 [History Confirmed 09/25/22] Amiodarone HCl 200 mg [Cordarone 200 MG] 200 mg PO 1200 08/25/19 [History Confirmed 09/25/22] Magnesium Oxide [Magnesium] 400 mg PO 1200 09/28/20 [History Confirmed 09/25/22] Multivitamin W-Minerals/Lutein [Centrum Silver Tablet] 1 each PO 1200 09/28/20 [History Confirmed 09/25/22] Famotidine 20 mg [Pepcid 20 MG] 20 mg PO BID 09/25/22 [History Confirmed 09/25/22] Insulin NPH Human Isophane [Humulin N Kwikpen] 3 unit SQ HS 09/25/22 [History Confirmed 09/25/22] Levothyroxine Sodium 25 mcg PO QAM 09/25/22 [History Confirmed 09/25/22] Memantine HCl [Memantine HCl ER] 28 mg PO DAILY 09/25/22 [History Confirmed 09/25/22] Rosuvastatin Calcium 10 mg PO DAILY 09/25/22 [History Confirmed 09/25/22] Allergies/Adverse Reactions: Allergies Allergy/AdvReac Type Severity Reaction Status Date / Time No Known Drug Allergies Allergy Verified 04/27/22 11:41 - Past Medical History Past Medical History: Yes Neurological History: Dementia ENT History: Glaucoma Cardiac History: Angina, Coronary Artery Disease, Hypertension Respiratory History: No Pertinent History Endocrine Medical History: Diabetes Type II Musculoskelatal History: Rheumatoid Arthritis GI Medical History: No Pertinent History History: No Pertinent History Pyscho-Social History: No Pertinent History Reproductive Disorders: Abnormal Uterine Bleeding Comment: . 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,COLON SURGERIES "YEARS AND YEARS AGO" ,breat tumors removed noncancerous,tumor from back removed, - Social History Smoking Status: Former smoker Exposure to second hand smoke: No Alcohol: None Drug Use: none Significant Family History: no pertinent family hx - Physical Exam Vital Signs: Vital Signs - 24 hr Temp Pulse Resp BP Pulse Ox 09/26/22 07:31 97.0 F 85 19 105/57 96 09/26/22 06:00 97.8 F 64 20 133/51 91 L 09/26/22 04:55 97.8 F 64 20 133/51 91 L 09/26/22 04:00 97.5 F 63 21 120/53 94 L 09/26/22 02:00 97.5 F 60 18 120/53 94 L 09/26/22 00:00 97.5 F 63 21 120/53 94 L 09/25/22 22:00 21 09/25/22 21:42 89 20 97 09/25/22 20:16 68 20 99 09/25/22 20:00 97.6 F 72 20 134/65 93 L 09/25/22 18:38 97.6 F 72 20 134/65 93 L 09/25/22 18:23 95 09/25/22 15:30 72 20 95 09/25/22 15:02 99.7 F 72 16 158/44 94 L General Appearance: no apparent distress Neurologic Exam: alert, oriented x 3 Respiratory Exam: normal breath sounds, lungs clear, No respiratory distress Cardiovascular Exam: regular rate/rhythm, normal heart sounds, normal peripheral pulses Gastrointestinal/Abdomen Exam: soft, normal bowel sounds, No tenderness, No mass Extremity Exam: normal inspection, normal range of motion, pelvis stable Skin Exam: normal color, warm, dry, No rash Results - Labs Lab/Micro Results: Lab Results-Last 24 Hours 09/25/22 09/25/22 09/25/22 Range/Units 15:22 15:30 15:33 WBC 7.8 (4.0-10.5) x10^3/uL RBC 3.01 L (4.1-5.4) x10^6/uL Hgb 9.2 L (12.0-16.0) g/dL Hct 28.8 L (35-47) % MCV 95.7 (78-100) fL MCH 30.6 (26-32) pg MCHC 31.9 L (32-36) g/dL RDW 14.6 H (11.5-14.0) % Plt Count 336 (150-450) x10^3/uL MPV 9.3 (7.5-11.0) fL Gran % 85.8 H (36.0-66.0) % Immature Gran % (Auto) 0.5 H (0.00-0.4) % Nucleat RBC Rel Count 0.0 (0.00-0.1) % Eos # (Auto) 0.02 (0-0.5) x10^3/uL Immature Gran # (Auto) 0.04 H (0.00-0.03) x10^3u/L Absolute Lymphs (auto) 0.33 L (1.0-4.6) x10^3/uL Absolute Monos (auto) 0.69 (0.0-1.3) x10^3/uL Absolute Nucleated RBC 0.00 (0.00-0.01) x10^3u/L Lymphocytes % 4.2 L (24.0-44.0) % Monocytes % 8.9 (0.0-12.0) % Eosinophils % 0.3 (0.00-5.0) % Basophils % 0.3 (0.0-0.4) % Absolute Granulocytes 6.68 (1.4-6.9) x10^3/uL Basophils # 0.02 (0-0.4) x10^3/uL D-Dimer (0.0-0.50) mg/L Puncture Site LEFT RADIAL pCO2 31 L (35-45) mmHg pO2 62 L (75-100) mmHg Base Excess -2.0 (-2.0-2.0) O2 Saturation 92.5 L (94-100) g/dF ABG pH 7.45 (7.35-7.45) ABG HCO3 21.5 L (22-28) ABG O2 Sat (Measured) 93.7 L (95-100) % Jose Test YES A-a Gradient 184 a/A Ratio 0.25 Hemoglobin 9.3 Carboxyhemoglobin 1.0 (0.0-6.9) % THgb Methemoglobin 0.3 L (1.4-1.5) % Potassium 3.5 (3.5-5.1) Temperature 37.0 C POC O2 Flow Rate 40 % Sodium (137-145) mmol/L Chloride (98-107) mmol/L Carbon Dioxide (22-30) mmol/L Anion Gap (5-15) MEQ/L BUN (7-17) mg/dL Creatinine (0.52-1.04) mg/dL Estimated GFR ML/MIN Glucose (74-106) mg/dL POC Glucometer (74 to 106) mg/dL Hemoglobin A1c (4.5-6.0) % Lactic Acid 0.6 (0.4-2.0) Calcium (8.4-10.2) mg/dL Magnesium (1.6-2.3) mg/dL Total Bilirubin (0.2-1.3) mg/dL AST (14-36) U/L ALT (0-35) U/L Alkaline Phosphatase (38-126) U/L Troponin I (0.000-0.034) ng/mL NT-Pro-B Natriuret Pep (<300) pg/mL Serum Total Protein (6.3-8.2) g/dL Albumin (3.5-5.0) g/dL Lipase (23-300) U/L Procalcitonin (0.030-0.080) ng/mL Urine Color Yellow (Yellow) Urine Appearance Clear (Clear) Urine pH 7.5 (4.6-8.0) Ur Specific Halls 1.015 (1.005-1.030) Urine Protein 100 A (Negative) Urine Glucose (UA) Negative (Negative) mg/dL Urine Ketones Trace A (Negative) Urine Blood Negative (Negative) Urine Nitrite Negative (Negative) Urine Bilirubin Negative (Negative) Urine Urobilinogen 1.0 A (0.2) mg/dL Ur Leukocyte Esterase Negative (Negative) U Hyaline Cast (Auto) NONE SEEN (0-2) /LPF Urine Microscopic RBC 0-2 (0-5) /HPF Urine Microscopic WBC 0-2 (0-5) /HPF Ur Epithelial Cells Rare (None Seen) /HPF Urine Bacteria None Seen (None Seen) /HPF Urine Culture Reflexed NO (NO) Influenza Type A Ag (NEGATIVE) Influenza Type B Ag (NEGATIVE) RSV (PCR) (NEGATIVE) SARS-CoV-2 (PCR) (NEGATIVE) Slides for Path Review 09/25/22 09/25/22 09/25/22 Range/Units 15:33 15:33 15:33 WBC (4.0-10.5) x10^3/uL RBC (4.1-5.4) x10^6/uL Hgb (12.0-16.0) g/dL Hct (35-47) % MCV (78-100) fL MCH (26-32) pg MCHC (32-36) g/dL RDW (11.5-14.0) % Plt Count (150-450) x10^3/uL MPV (7.5-11.0) fL Gran % (36.0-66.0) % Immature Gran % (Auto) (0.00-0.4) % Nucleat RBC Rel Count (0.00-0.1) % Eos # (Auto) (0-0.5) x10^3/uL Immature Gran # (Auto) (0.00-0.03) x10^3u/L Absolute Lymphs (auto) (1.0-4.6) x10^3/uL Absolute Monos (auto) (0.0-1.3) x10^3/uL Absolute Nucleated RBC (0.00-0.01) x10^3u/L Lymphocytes % (24.0-44.0) % Monocytes % (0.0-12.0) % Eosinophils % (0.00-5.0) % Basophils % (0.0-0.4) % Absolute Granulocytes (1.4-6.9) x10^3/uL Basophils # (0-0.4) x10^3/uL D-Dimer (0.0-0.50) mg/L Puncture Site pCO2 (35-45) mmHg pO2 (75-100) mmHg Base Excess (-2.0-2.0) O2 Saturation (94-100) g/dF ABG pH (7.35-7.45) ABG HCO3 (22-28) ABG O2 Sat (Measured) (95-100) % Jose Test A-a Gradient a/A Ratio Hemoglobin Carboxyhemoglobin (0.0-6.9) % THgb Methemoglobin (1.4-1.5) % Potassium 3.2 L (3.5-5.1) Temperature C POC O2 Flow Rate % Sodium 135 L (137-145) mmol/L Chloride 105 (98-107) mmol/L Carbon Dioxide 21 L (22-30) mmol/L Anion Gap 12.2 (5-15) MEQ/L BUN 16 (7-17) mg/dL Creatinine 1.62 H (0.52-1.04) mg/dL Estimated GFR 31.9 ML/MIN Glucose 127 H (74-106) mg/dL POC Glucometer (74 to 106) mg/dL Hemoglobin A1c (4.5-6.0) % Lactic Acid (0.4-2.0) Calcium 7.3 L (8.4-10.2) mg/dL Magnesium 1.6 (1.6-2.3) mg/dL Total Bilirubin 0.40 (0.2-1.3) mg/dL AST 29 (14-36) U/L ALT 18 (0-35) U/L Alkaline Phosphatase 47 (38-126) U/L Troponin I 0.420 H* (0.000-0.034) ng/mL NT-Pro-B Natriuret Pep 7460 (<300) pg/mL Serum Total Protein 6.5 (6.3-8.2) g/dL Albumin 3.4 L (3.5-5.0) g/dL Lipase 36 (23-300) U/L Procalcitonin (0.030-0.080) ng/mL Urine Color (Yellow) Urine Appearance (Clear) Urine pH (4.6-8.0) Ur Specific Halls (1.005-1.030) Urine Protein (Negative) Urine Glucose (UA) (Negative) mg/dL Urine Ketones (Negative) Urine Blood (Negative) Urine Nitrite (Negative) Urine Bilirubin (Negative) Urine Urobilinogen (0.2) mg/dL Ur Leukocyte Esterase (Negative) U Hyaline Cast (Auto) (0-2) /LPF Urine Microscopic RBC (0-5) /HPF Urine Microscopic WBC (0-5) /HPF Ur Epithelial Cells (None Seen) /HPF Urine Bacteria (None Seen) /HPF Urine Culture Reflexed (NO) Influenza Type A Ag NEGATIVE (NEGATIVE) Influenza Type B Ag NEGATIVE (NEGATIVE) RSV (PCR) NEGATIVE (NEGATIVE) SARS-CoV-2 (PCR) POSITIVE A (NEGATIVE) Slides for Path Review 09/25/22 09/25/22 09/25/22 Range/Units 15:33 19:20 19:20 WBC (4.0-10.5) x10^3/uL RBC (4.1-5.4) x10^6/uL Hgb (12.0-16.0) g/dL Hct (35-47) % MCV (78-100) fL MCH (26-32) pg MCHC (32-36) g/dL RDW (11.5-14.0) % Plt Count (150-450) x10^3/uL MPV (7.5-11.0) fL Gran % (36.0-66.0) % Immature Gran % (Auto) (0.00-0.4) % Nucleat RBC Rel Count (0.00-0.1) % Eos # (Auto) (0-0.5) x10^3/uL Immature Gran # (Auto) (0.00-0.03) x10^3u/L Absolute Lymphs (auto) (1.0-4.6) x10^3/uL Absolute Monos (auto) (0.0-1.3) x10^3/uL Absolute Nucleated RBC (0.00-0.01) x10^3u/L Lymphocytes % (24.0-44.0) % Monocytes % (0.0-12.0) % Eosinophils % (0.00-5.0) % Basophils % (0.0-0.4) % Absolute Granulocytes (1.4-6.9) x10^3/uL Basophils # (0-0.4) x10^3/uL D-Dimer (0.0-0.50) mg/L Puncture Site pCO2 (35-45) mmHg pO2 (75-100) mmHg Base Excess (-2.0-2.0) O2 Saturation (94-100) g/dF ABG pH (7.35-7.45) ABG HCO3 (22-28) ABG O2 Sat (Measured) (95-100) % Jose Test A-a Gradient a/A Ratio Hemoglobin Carboxyhemoglobin (0.0-6.9) % THgb Methemoglobin (1.4-1.5) % Potassium (3.5-5.1) Temperature C POC O2 Flow Rate % Sodium (137-145) mmol/L Chloride (98-107) mmol/L Carbon Dioxide (22-30) mmol/L Anion Gap (5-15) MEQ/L BUN (7-17) mg/dL Creatinine (0.52-1.04) mg/dL Estimated GFR ML/MIN Glucose (74-106) mg/dL POC Glucometer (74 to 106) mg/dL Hemoglobin A1c 7.48 H (4.5-6.0) % Lactic Acid (0.4-2.0) Calcium (8.4-10.2) mg/dL Magnesium (1.6-2.3) mg/dL Total Bilirubin (0.2-1.3) mg/dL AST (14-36) U/L ALT (0-35) U/L Alkaline Phosphatase (38-126) U/L Troponin I 0.988 H* (0.000-0.034) ng/mL NT-Pro-B Natriuret Pep (<300) pg/mL Serum Total Protein (6.3-8.2) g/dL Albumin (3.5-5.0) g/dL Lipase (23-300) U/L Procalcitonin 0.054 (0.030-0.080) ng/mL Urine Color (Yellow) Urine Appearance (Clear) Urine pH (4.6-8.0) Ur Specific Halls (1.005-1.030) Urine Protein (Negative) Urine Glucose (UA) (Negative) mg/dL Urine Ketones (Negative) Urine Blood (Negative) Urine Nitrite (Negative) Urine Bilirubin (Negative) Urine Urobilinogen (0.2) mg/dL Ur Leukocyte Esterase (Negative) U Hyaline Cast (Auto) (0-2) /LPF Urine Microscopic RBC (0-5) /HPF Urine Microscopic WBC (0-5) /HPF Ur Epithelial Cells (None Seen) /HPF Urine Bacteria (None Seen) /HPF Urine Culture Reflexed (NO) Influenza Type A Ag (NEGATIVE) Influenza Type B Ag (NEGATIVE) RSV (PCR) (NEGATIVE) SARS-CoV-2 (PCR) (NEGATIVE) Slides for Path Review 09/25/22 09/25/22 09/26/22 Range/Units 21:22 23:08 04:35 WBC 8.2 (4.0-10.5) x10^3/uL RBC 3.04 L (4.1-5.4) x10^6/uL Hgb 9.3 L (12.0-16.0) g/dL Hct 28.8 L (35-47) % MCV 94.7 (78-100) fL MCH 30.6 (26-32) pg MCHC 32.3 (32-36) g/dL RDW 14.7 H (11.5-14.0) % Plt Count 382 (150-450) x10^3/uL MPV 8.9 (7.5-11.0) fL Gran % 93.0 H (36.0-66.0) % Immature Gran % (Auto) 0.4 (0.00-0.4) % Nucleat RBC Rel Count 0.0 (0.00-0.1) % Eos # (Auto) 0 (0-0.5) x10^3/uL Immature Gran # (Auto) 0.03 (0.00-0.03) x10^3u/L Absolute Lymphs (auto) 0.38 L (1.0-4.6) x10^3/uL Absolute Monos (auto) 0.15 (0.0-1.3) x10^3/uL Absolute Nucleated RBC 0.00 (0.00-0.01) x10^3u/L Lymphocytes % 4.7 L (24.0-44.0) % Monocytes % 1.8 (0.0-12.0) % Eosinophils % 0.0 (0.00-5.0) % Basophils % 0.1 (0.0-0.4) % Absolute Granulocytes 7.58 H (1.4-6.9) x10^3/uL Basophils # 0.01 (0-0.4) x10^3/uL D-Dimer (0.0-0.50) mg/L Puncture Site pCO2 (35-45) mmHg pO2 (75-100) mmHg Base Excess (-2.0-2.0) O2 Saturation (94-100) g/dF ABG pH (7.35-7.45) ABG HCO3 (22-28) ABG O2 Sat (Measured) (95-100) % Jose Test A-a Gradient a/A Ratio Hemoglobin Carboxyhemoglobin (0.0-6.9) % THgb Methemoglobin (1.4-1.5) % Potassium (3.5-5.1) Temperature C POC O2 Flow Rate % Sodium (137-145) mmol/L Chloride (98-107) mmol/L Carbon Dioxide (22-30) mmol/L Anion Gap (5-15) MEQ/L BUN (7-17) mg/dL Creatinine (0.52-1.04) mg/dL Estimated GFR ML/MIN Glucose (74-106) mg/dL POC Glucometer 191 H (74 to 106) mg/dL Hemoglobin A1c (4.5-6.0) % Lactic Acid (0.4-2.0) Calcium (8.4-10.2) mg/dL Magnesium (1.6-2.3) mg/dL Total Bilirubin (0.2-1.3) mg/dL AST (14-36) U/L ALT (0-35) U/L Alkaline Phosphatase (38-126) U/L Troponin I 1.070 H* (0.000-0.034) ng/mL NT-Pro-B Natriuret Pep (<300) pg/mL Serum Total Protein (6.3-8.2) g/dL Albumin (3.5-5.0) g/dL Lipase (23-300) U/L Procalcitonin (0.030-0.080) ng/mL Urine Color (Yellow) Urine Appearance (Clear) Urine pH (4.6-8.0) Ur Specific Halls (1.005-1.030) Urine Protein (Negative) Urine Glucose (UA) (Negative) mg/dL Urine Ketones (Negative) Urine Blood (Negative) Urine Nitrite (Negative) Urine Bilirubin (Negative) Urine Urobilinogen (0.2) mg/dL Ur Leukocyte Esterase (Negative) U Hyaline Cast (Auto) (0-2) /LPF Urine Microscopic RBC (0-5) /HPF Urine Microscopic WBC (0-5) /HPF Ur Epithelial Cells (None Seen) /HPF Urine Bacteria (None Seen) /HPF Urine Culture Reflexed (NO) Influenza Type A Ag (NEGATIVE) Influenza Type B Ag (NEGATIVE) RSV (PCR) (NEGATIVE) SARS-CoV-2 (PCR) (NEGATIVE) Slides for Path Review YES 09/26/22 09/26/22 09/26/22 Range/Units 04:35 07:22 08:00 WBC (4.0-10.5) x10^3/uL RBC (4.1-5.4) x10^6/uL Hgb (12.0-16.0) g/dL Hct (35-47) % MCV (78-100) fL MCH (26-32) pg MCHC (32-36) g/dL RDW (11.5-14.0) % Plt Count (150-450) x10^3/uL MPV (7.5-11.0) fL Gran % (36.0-66.0) % Immature Gran % (Auto) (0.00-0.4) % Nucleat RBC Rel Count (0.00-0.1) % Eos # (Auto) (0-0.5) x10^3/uL Immature Gran # (Auto) (0.00-0.03) x10^3u/L Absolute Lymphs (auto) (1.0-4.6) x10^3/uL Absolute Monos (auto) (0.0-1.3) x10^3/uL Absolute Nucleated RBC (0.00-0.01) x10^3u/L Lymphocytes % (24.0-44.0) % Monocytes % (0.0-12.0) % Eosinophils % (0.00-5.0) % Basophils % (0.0-0.4) % Absolute Granulocytes (1.4-6.9) x10^3/uL Basophils # (0-0.4) x10^3/uL D-Dimer 0.81 H* (0.0-0.50) mg/L Puncture Site pCO2 (35-45) mmHg pO2 (75-100) mmHg Base Excess (-2.0-2.0) O2 Saturation (94-100) g/dF ABG pH (7.35-7.45) ABG HCO3 (22-28) ABG O2 Sat (Measured) (95-100) % Jose Test A-a Gradient a/A Ratio Hemoglobin Carboxyhemoglobin (0.0-6.9) % THgb Methemoglobin (1.4-1.5) % Potassium 4.1 D (3.5-5.1) Temperature C POC O2 Flow Rate % Sodium 136 L (137-145) mmol/L Chloride 102 (98-107) mmol/L Carbon Dioxide 22 (22-30) mmol/L Anion Gap 16.1 H (5-15) MEQ/L BUN 19 H (7-17) mg/dL Creatinine 1.63 H (0.52-1.04) mg/dL Estimated GFR 31.6 ML/MIN Glucose 224 H (74-106) mg/dL POC Glucometer 217 H (74 to 106) mg/dL Hemoglobin A1c (4.5-6.0) % Lactic Acid (0.4-2.0) Calcium 8.5 D (8.4-10.2) mg/dL Magnesium (1.6-2.3) mg/dL Total Bilirubin 0.40 (0.2-1.3) mg/dL AST 44 H (14-36) U/L ALT 25 (0-35) U/L Alkaline Phosphatase 53 (38-126) U/L Troponin I (0.000-0.034) ng/mL NT-Pro-B Natriuret Pep (<300) pg/mL Serum Total Protein 7.2 (6.3-8.2) g/dL Albumin 3.9 (3.5-5.0) g/dL Lipase (23-300) U/L Procalcitonin (0.030-0.080) ng/mL Urine Color (Yellow) Urine Appearance (Clear) Urine pH (4.6-8.0) Ur Specific Halls (1.005-1.030) Urine Protein (Negative) Urine Glucose (UA) (Negative) mg/dL Urine Ketones (Negative) Urine Blood (Negative) Urine Nitrite (Negative) Urine Bilirubin (Negative) Urine Urobilinogen (0.2) mg/dL Ur Leukocyte Esterase (Negative) U Hyaline Cast (Auto) (0-2) /LPF Urine Microscopic RBC (0-5) /HPF Urine Microscopic WBC (0-5) /HPF Ur Epithelial Cells (None Seen) /HPF Urine Bacteria (None Seen) /HPF Urine Culture Reflexed (NO) Influenza Type A Ag (NEGATIVE) Influenza Type B Ag (NEGATIVE) RSV (PCR) (NEGATIVE) SARS-CoV-2 (PCR) (NEGATIVE) Slides for Path Review Accuchecks Date 09/26/22 Time 07:30 - Radiology Impressions Radiology Exams & Impressions: Radiology Procedures Category Date Time Status CHEST 1 VIEW (PORTABLE) Stat Exams 09/25/22 16:14 Taken - Other Procedures and Tests Respiratory Therapy 09/25/22 18:33 Oxygen Nasal Cannula 5 lpm Assessment/Plan (1) Pneumonia due to COVID-19 virus Current Visit: Yes Status: Acute Assessment & Plan: appears viral at this time, patient on room air and has clear lungs, will continue current managment, if continues to maintain oxygen saturation and tolerate po likely home tomorrow. Code(s): U07.1 - COVID-19; J12.82 - PNEUMONIA DUE TO CORONAVIRUS DISEASE 2019 (2) Vomiting and diarrhea Current Visit: Yes Status: Acute Assessment & Plan: resolved. Code(s): R11.10 - VOMITING, UNSPECIFIED; R19.7 - DIARRHEA, UNSPECIFIED
--- NOTE | 2022-09-26 09:47 | XRAY ---
Indication: Fever and cough. Comparison: January 14, 2022 Portable chest remains hyperinflated and clear with incidental right apical calcified granuloma. Heart not enlarged again with left dual-lead pacemaker. Bony thorax intact again with osteopenia and mild degenerative changes. Impression: Continued nonacute chest with chronic features.
[2022-09-26] MEDS ORDERED: NON-FORMULARY ITEM (Memantine Hcl [Memantine Hcl Er] 28 MG Cap.Spr.24) PO SCH (10:00)
[2022-09-26] MEDS ORDERED: NON-FORMULARY ITEM (Rosuvastatin Calcium [Rosuvastatin Calcium] 10 MG Tablet) PO SCH (10:00)
[2022-09-26] MEDS: ENOXAPARIN SODIUM SQ SCH (10:34)
[2022-09-26] MEDS: Sodium Chloride 0.9% W/ 20 mEq KCl/LITER 1,000 ML IV SCH (10:34)
[2022-09-26] MEDS: ROCEPHIN 1 Gm-D5w 50 ml Bag** 1 G/50 ML IVPB IV SCH (10:35)
[2022-09-26] MEDS: Zithromax 500 MG/ 250 ML NaCl Premix 500 MG/250 ML IVPB IV SCH (11:52)
[2022-09-26] MEDS: Cordarone 200 MG PO SCH (11:53)
[2022-09-26] MEDS: PLAVIX Tablet PO SCH (11:53)
[2022-09-26] MEDS: MAG-OX 400 PO SCH (11:53)
[2022-09-26] MEDS ORDERED: NON-FORMULARY ITEM (Magnesium Oxide [Magnesium] 400 MG Tablet) PO SCH (12:00)
[2022-09-26] MEDS ORDERED: NON-FORMULARY ITEM (Multivitamin W-Minerals/Lutein [Centrum Silver Tablet] 1 EACH Tablet) PO SCH (12:00)
[2022-09-26] MEDS: THERAGRAN MULTIVITAMIN PO SCH (12:00)
[2022-09-26] MEDS: Cozaar 50 MG PO SCH (21:54)
[2022-09-27] MEDS: solu-MEDROL 40 MG, Sterile H2O 10 ml 2 ML IV SCH ×2 (05:08)
[2022-09-27] MEDS: Sodium Chloride 0.9% W/ 20 mEq KCl/LITER 1,000 ML IV SCH (05:16)
[2022-09-27 05:32] LABS: Absolute Neutrophil Ct (ANC) 15.44 x10^3/uL (1.4-6.9); BASOPHIL % 0.1 % (0.0-0.4); Basophil (Absolute #) 0.01 x10^3/uL (0-0.4); Eosinophil (Absolute #) 0 x10^3/uL (0-0.5); Hematocrit 28.7 % (35-47); Hemoglobin 9.2 g/dL (12.0-16.0); IMMATURE GRAN % 0.6 % (0.00-0.4); Lymphocyte (Absolute #) 0.49 x10^3/uL (1.0-4.6); Mean Cell Volume 95.7 fL (78-100); Mean Corpuscular Hemoglobin 30.7 pg (26-32); Mean Corpuscular Hgb Concent. 32.1 g/dL (32-36); Mean Platelet Volume 9.4 fL (7.5-11.0); Monocyte (Absolute #) 0.51 x10^3/uL (0.0-1.3); Monocytes % 3.1 % (0.0-12.0); Neutrophil % 93.2 % (36.0-66.0); Platelet Count 406 x10^3/uL (150-450); Red Cell Distribution Width 14.6 % (11.5-14.0); White Blood Count 16.6 x10^3/uL (4.0-10.5)
[2022-09-27 05:50] LABS: ALBUMIN 3.8 g/dL (3.5-5.0); ANION GAP 17.4 MEQ/L (5-15); BILIRUBIN,TOTAL 0.3 mg/dL (0.2-1.3); Calcium 8.7 mg/dL (8.4-10.2); Creatinine 1 1.61 mg/dL (0.52-1.04); EST GLOMERULAR FILTRATION RATE 32.1 ML/MIN; Potassium 3.9 mmol/L (3.5-5.1)
[2022-09-27 07:50] LABS: Slide Review 1 YES
[2022-09-27] MEDS: Namenda 5 MG PO SCH (09:29)
[2022-09-27] MEDS: ROCEPHIN 1 Gm-D5w 50 ml Bag** 1 G/50 ML IVPB IV SCH (09:29)
[2022-09-27] MEDS: SYNTHROID 25 MCG PO SCH (09:29)
[2022-09-27] MEDS: FOLATE 1 MG PO SCH (09:30)
[2022-09-27] MEDS: ZOCOR 20MG PO SCH (09:30)
[2022-09-27] MEDS: Lopressor 50 MG PO SCH ×2 (09:30→23:25)
[2022-09-27] MEDS: Imdur 30 MG PO SCH (09:31)
[2022-09-27] MEDS: ENOXAPARIN SODIUM SQ SCH (09:31)
[2022-09-27] MEDS: Glucophage 500 MG PO SCH ×2 (09:31→17:12)
[2022-09-27] MEDS: HUMALOG SQ PRN ×2 (09:31→22:23)
[2022-09-27] MEDS: Pepcid 20 MG PO SCH ×2 (09:31→22:23)
[2022-09-27] MEDS: Tricor 145 MG PO SCH (09:31)
[2022-09-27] MEDS: NORVASC 5 MG PO SCH (09:32)
[2022-09-27] MEDS: Novolin N SQ SCH ×2 (09:32→22:23)
--- NOTE | 2022-09-27 09:32 | PCM.NOTE ---
Date and Time: 09/27/22929 Subjective Assessment: patient states she feels well, has some mild cough. denies dyspnea, increasing oxygen requirements noted. Objective Exam General Appearance: no apparent distress Neurologic Exam: alert, oriented x 3 Respiratory Exam: crackles/rales Cardiovascular Exam: regular rate/rhythm, normal heart sounds Gastrointestinal/Abdomen Exam: soft, No tenderness, No mass Extremity Exam: pedal edema (minimal) OBJECTIVE DATA Vital Signs: Vital Signs - 24 hr Temp Pulse Resp BP Pulse Ox 09/27/22 09:00 63 89 L 09/27/22 07:53 18 09/27/22 07:00 98.7 F 61 18 155/63 95 09/27/22 06:00 18 09/27/22 04:53 96.9 F 60 18 155/53 89 L 09/27/22 04:00 18 09/27/22 02:00 18 09/27/22 01:00 63 92 L 09/27/22 00:00 18 09/26/22 23:00 97.0 F 87 16 139/63 88 L 09/26/22 22:00 17 09/26/22 20:52 94 L 09/26/22 20:45 97.1 F 64 17 151/63 90 L 09/26/22 20:00 14 09/26/22 19:00 66 14 93 L 09/26/22 18:00 17 09/26/22 17:00 97.7 F 63 17 130/50 95 09/26/22 16:00 18 09/26/22 15:07 88 L 09/26/22 14:00 18 09/26/22 13:38 17 96 09/26/22 12:00 97.0 F 64 18 157/65 90 L 09/26/22 10:00 63 17 94 L Pain Assessment - Last Documented Pain Intensity 0 Intake and Output: Intake & Output 09/24/22 09/25/22 09/26/22 09/27/22 11:59 11:59 11:59 11:59 Intake Total 1311 2882 Output Total 1300 2000 Balance 11 882 Weight 70.4 kg 70.6 kg Lab Results: Lab Results-Last 24 Hours 09/26/22 09/26/22 09/26/22 Range/Units 11:59 16:12 21:22 WBC (4.0-10.5) x10^3/uL RBC (4.1-5.4) x10^6/uL Hgb (12.0-16.0) g/dL Hct (35-47) % MCV (78-100) fL MCH (26-32) pg MCHC (32-36) g/dL RDW (11.5-14.0) % Plt Count (150-450) x10^3/uL MPV (7.5-11.0) fL Gran % (36.0-66.0) % Immature Gran % (Auto) (0.00-0.4) % Nucleat RBC Rel Count (0.00-0.1) % Eos # (Auto) (0-0.5) x10^3/uL Immature Gran # (Auto) (0.00-0.03) x10^3u/L Absolute Lymphs (auto) (1.0-4.6) x10^3/uL Absolute Monos (auto) (0.0-1.3) x10^3/uL Absolute Nucleated RBC (0.00-0.01) x10^3u/L Lymphocytes % (24.0-44.0) % Monocytes % (0.0-12.0) % Eosinophils % (0.00-5.0) % Basophils % (0.0-0.4) % Absolute Granulocytes (1.4-6.9) x10^3/uL Basophils # (0-0.4) x10^3/uL D-Dimer (0.0-0.50) mg/L Sodium (137-145) mmol/L Potassium (3.5-5.1) mmol/L Chloride (98-107) mmol/L Carbon Dioxide (22-30) mmol/L Anion Gap (5-15) MEQ/L BUN (7-17) mg/dL Creatinine (0.52-1.04) mg/dL Estimated GFR ML/MIN Glucose (74-106) mg/dL POC Glucometer 200 H 234 H 287 H (74 to 106) mg/dL Calcium (8.4-10.2) mg/dL Magnesium (1.6-2.3) mg/dL Total Bilirubin (0.2-1.3) mg/dL AST (14-36) U/L ALT (0-35) U/L Alkaline Phosphatase (38-126) U/L Serum Total Protein (6.3-8.2) g/dL Albumin (3.5-5.0) g/dL Slides for Path Review 09/27/22 09/27/22 09/27/22 Range/Units 04:47 04:47 05:20 WBC 16.6 H (4.0-10.5) x10^3/uL RBC 3.00 L (4.1-5.4) x10^6/uL Hgb 9.2 L (12.0-16.0) g/dL Hct 28.7 L (35-47) % MCV 95.7 (78-100) fL MCH 30.7 (26-32) pg MCHC 32.1 (32-36) g/dL RDW 14.6 H (11.5-14.0) % Plt Count 406 (150-450) x10^3/uL MPV 9.4 (7.5-11.0) fL Gran % 93.2 H (36.0-66.0) % Immature Gran % (Auto) 0.6 H (0.00-0.4) % Nucleat RBC Rel Count 0.0 (0.00-0.1) % Eos # (Auto) 0 (0-0.5) x10^3/uL Immature Gran # (Auto) 0.10 H (0.00-0.03) x10^3u/L Absolute Lymphs (auto) 0.49 L (1.0-4.6) x10^3/uL Absolute Monos (auto) 0.51 (0.0-1.3) x10^3/uL Absolute Nucleated RBC 0.00 (0.00-0.01) x10^3u/L Lymphocytes % 3.0 L (24.0-44.0) % Monocytes % 3.1 (0.0-12.0) % Eosinophils % 0.0 (0.00-5.0) % Basophils % 0.1 (0.0-0.4) % Absolute Granulocytes 15.44 H (1.4-6.9) x10^3/uL Basophils # 0.01 (0-0.4) x10^3/uL D-Dimer 0.65 H* (0.0-0.50) mg/L Sodium 138 (137-145) mmol/L Potassium 3.9 (3.5-5.1) mmol/L Chloride 104 (98-107) mmol/L Carbon Dioxide 21 L (22-30) mmol/L Anion Gap 17.4 H (5-15) MEQ/L BUN 28 H (7-17) mg/dL Creatinine 1.61 H (0.52-1.04) mg/dL Estimated GFR 32.1 ML/MIN Glucose 258 H (74-106) mg/dL POC Glucometer (74 to 106) mg/dL Calcium 8.7 (8.4-10.2) mg/dL Magnesium 2.0 (1.6-2.3) mg/dL Total Bilirubin 0.30 (0.2-1.3) mg/dL AST 57 H (14-36) U/L ALT 30 (0-35) U/L Alkaline Phosphatase 53 (38-126) U/L Serum Total Protein 7.0 (6.3-8.2) g/dL Albumin 3.8 (3.5-5.0) g/dL Slides for Path Review YES 09/27/22 Range/Units 06:29 WBC (4.0-10.5) x10^3/uL RBC (4.1-5.4) x10^6/uL Hgb (12.0-16.0) g/dL Hct (35-47) % MCV (78-100) fL MCH (26-32) pg MCHC (32-36) g/dL RDW (11.5-14.0) % Plt Count (150-450) x10^3/uL MPV (7.5-11.0) fL Gran % (36.0-66.0) % Immature Gran % (Auto) (0.00-0.4) % Nucleat RBC Rel Count (0.00-0.1) % Eos # (Auto) (0-0.5) x10^3/uL Immature Gran # (Auto) (0.00-0.03) x10^3u/L Absolute Lymphs (auto) (1.0-4.6) x10^3/uL Absolute Monos (auto) (0.0-1.3) x10^3/uL Absolute Nucleated RBC (0.00-0.01) x10^3u/L Lymphocytes % (24.0-44.0) % Monocytes % (0.0-12.0) % Eosinophils % (0.00-5.0) % Basophils % (0.0-0.4) % Absolute Granulocytes (1.4-6.9) x10^3/uL Basophils # (0-0.4) x10^3/uL D-Dimer (0.0-0.50) mg/L Sodium (137-145) mmol/L Potassium (3.5-5.1) mmol/L Chloride (98-107) mmol/L Carbon Dioxide (22-30) mmol/L Anion Gap (5-15) MEQ/L BUN (7-17) mg/dL Creatinine (0.52-1.04) mg/dL Estimated GFR ML/MIN Glucose (74-106) mg/dL POC Glucometer 250 H (74 to 106) mg/dL Calcium (8.4-10.2) mg/dL Magnesium (1.6-2.3) mg/dL Total Bilirubin (0.2-1.3) mg/dL AST (14-36) U/L ALT (0-35) U/L Alkaline Phosphatase (38-126) U/L Serum Total Protein (6.3-8.2) g/dL Albumin (3.5-5.0) g/dL Slides for Path Review Radiology Exams: Radiology Procedures Category Date Time Status CHEST 1 VIEW (PORTABLE) Stat Exams 09/25/22 16:14 Completed Assessment/Plan (1) Pneumonia due to COVID-19 virus Current Visit: Yes Status: Acute Assessment & Plan: no wheezing noted, will stop IV solu medrol at this time. continue lovenox Code(s): U07.1 - COVID-19; J12.82 - PNEUMONIA DUE TO CORONAVIRUS DISEASE 2018 (2) CHF (congestive heart failure) Current Visit: Yes Status: Acute Assessment & Plan: volume overload on exam, will diurese with IV lasix, hold IV fluids. anticipate discharge when able to wean oxygen. Code(s): I50.9 - HEART FAILURE, UNSPECIFIED (3) Vomiting and diarrhea Current Visit: Yes Status: Acute Code(s): R11.10 - VOMITING, UNSPECIFIED; R19.7 - DIARRHEA, UNSPECIFIED
[2022-09-27] MEDS: Lasix 40 MG/4 ML IV SCH ×2 (09:39→22:23)
[2022-09-27] MEDS: Klor Con PO SCH ×2 (09:39→22:23)
[2022-09-27] MEDS: PROTONIX 40 MG IV IV SCH (09:40)
[2022-09-27] MEDS: Zithromax 500 MG/ 250 ML NaCl Premix 500 MG/250 ML IVPB IV SCH (10:13)
[2022-09-27] MEDS: Cordarone 200 MG PO SCH (12:13)
[2022-09-27] MEDS: MAG-OX 400 PO SCH (12:13)
[2022-09-27] MEDS: THERAGRAN MULTIVITAMIN PO SCH (12:13)
[2022-09-27] MEDS: PLAVIX Tablet PO SCH (12:13)
[2022-09-27] MEDS: Cozaar 50 MG PO SCH (22:22)
[2022-09-28 04:45] LABS: BASOPHIL % 0.1 % (0.0-0.4); Basophil (Absolute #) 0.02 x10^3/uL (0-0.4); Eosinophil (Absolute #) 0 x10^3/uL (0-0.5); Hematocrit 29.7 % (35-47); Hemoglobin 9.6 g/dL (12.0-16.0); IMMATURE GRAN # 0.11 x10^3u/L (0.00-0.03); IMMATURE GRAN % 0.7 % (0.00-0.4); Lymphocytes % 3.3 % (24.0-44.0); Mean Cell Volume 93.7 fL (78-100); Mean Corpuscular Hemoglobin 30.3 pg (26-32); Mean Corpuscular Hgb Concent. 32.3 g/dL (32-36); Mean Platelet Volume 9.3 fL (7.5-11.0); Monocyte (Absolute #) 0.63 x10^3/uL (0.0-1.3); Monocytes % 4.2 % (0.0-12.0); Neutrophil % 91.7 % (36.0-66.0); Platelet Count 432 x10^3/uL (150-450); Red Blood Count 3.17 x10^6/uL (4.1-5.4); Red Cell Distribution Width 14.6 % (11.5-14.0); White Blood Count 15.1 x10^3/uL (4.0-10.5)
[2022-09-28 05:36] LABS: ANION GAP 14.5 MEQ/L (5-15); Calcium 8.7 mg/dL (8.4-10.2); Creatinine 1 1.81 mg/dL (0.52-1.04); MAGNESIUM 1.9 mg/dL (1.6-2.3); Potassium 3.3 mmol/L (3.5-5.1)
[2022-09-28 06:33] LABS: Slide Review 1 YES
[2022-09-28] MEDS: Novolin N SQ SCH ×2 (08:59→22:41)
[2022-09-28] MEDS: Glucophage 500 MG PO SCH ×2 (08:59→17:34)
--- NOTE | 2022-09-28 09:30 | PCM.NOTE ---
Date and Time: 09/28/22928 Subjective Assessment: patient denies chest pain or shortness of breath, minimal nonproductive cough. overall doesn't feel bad, eager to return to home Objective Exam General Appearance: no apparent distress Neurologic Exam: alert, oriented x 3 Respiratory Exam: crackles/rales Cardiovascular Exam: regular rate/rhythm Gastrointestinal/Abdomen Exam: soft, No tenderness, No mass Extremity Exam: normal inspection, normal range of motion OBJECTIVE DATA Vital Signs: Vital Signs - 24 hr Temp Pulse Resp BP Pulse Ox 09/28/22 09:12 66 91 L 09/28/22 07:01 98.1 F 67 16 162/59 90 L 09/28/22 06:23 91 L 09/28/22 06:00 20 09/28/22 05:45 66 20 87 L 09/28/22 04:00 97.5 F 66 18 165/57 89 L 09/28/22 02:00 69 20 88 L 09/28/22 00:00 24 09/27/22 23:46 97.6 F 95 H 24 133/53 89 L 09/27/22 22:00 78 20 91 L 09/27/22 20:00 97.2 F 90 17 160/65 90 L 09/27/22 18:50 89 L 09/27/22 17:00 97.1 F 63 16 139/50 84 L 09/27/22 15:15 90 L 09/27/22 15:00 97.1 F 80 19 137/63 84 L 09/27/22 13:00 60 22 09/27/22 11:00 98.5 F 62 18 130/55 95 Pain Assessment - Last Documented Pain Intensity 0 Intake and Output: Intake & Output 09/25/22 09/26/22 09/27/22 09/28/22 11:59 11:59 11:59 11:59 Intake Total 1311 2882 1400 Output Total 1300 2000 2150 Balance 11 882 -750 Weight 70.4 kg 70.6 kg 70.5 kg Lab Results: Lab Results-Last 24 Hours 09/27/22 09/27/22 09/27/22 Range/Units 11:12 16:12 22:03 WBC (4.0-10.5) x10^3/uL RBC (4.1-5.4) x10^6/uL Hgb (12.0-16.0) g/dL Hct (35-47) % MCV (78-100) fL MCH (26-32) pg MCHC (32-36) g/dL RDW (11.5-14.0) % Plt Count (150-450) x10^3/uL MPV (7.5-11.0) fL Gran % (36.0-66.0) % Immature Gran % (Auto) (0.00-0.4) % Nucleat RBC Rel Count (0.00-0.1) % Eos # (Auto) (0-0.5) x10^3/uL Immature Gran # (Auto) (0.00-0.03) x10^3u/L Absolute Lymphs (auto) (1.0-4.6) x10^3/uL Absolute Monos (auto) (0.0-1.3) x10^3/uL Absolute Nucleated RBC (0.00-0.01) x10^3u/L Lymphocytes % (24.0-44.0) % Monocytes % (0.0-12.0) % Eosinophils % (0.00-5.0) % Basophils % (0.0-0.4) % Absolute Granulocytes (1.4-6.9) x10^3/uL Basophils # (0-0.4) x10^3/uL D-Dimer (0.0-0.50) mg/L Sodium (137-145) mmol/L Potassium (3.5-5.1) mmol/L Chloride (98-107) mmol/L Carbon Dioxide (22-30) mmol/L Anion Gap (5-15) MEQ/L BUN (7-17) mg/dL Creatinine (0.52-1.04) mg/dL Estimated GFR ML/MIN Glucose (74-106) mg/dL POC Glucometer 268 H 231 H 271 H (74 to 106) mg/dL Calcium (8.4-10.2) mg/dL Magnesium (1.6-2.3) mg/dL Slides for Path Review 09/28/22 09/28/22 09/28/22 Range/Units 04:30 04:30 04:35 WBC 15.1 H (4.0-10.5) x10^3/uL RBC 3.17 L (4.1-5.4) x10^6/uL Hgb 9.6 L (12.0-16.0) g/dL Hct 29.7 L (35-47) % MCV 93.7 (78-100) fL MCH 30.3 (26-32) pg MCHC 32.3 (32-36) g/dL RDW 14.6 H (11.5-14.0) % Plt Count 432 (150-450) x10^3/uL MPV 9.3 (7.5-11.0) fL Gran % 91.7 H (36.0-66.0) % Immature Gran % (Auto) 0.7 H (0.00-0.4) % Nucleat RBC Rel Count 0.0 (0.00-0.1) % Eos # (Auto) 0 (0-0.5) x10^3/uL Immature Gran # (Auto) 0.11 H (0.00-0.03) x10^3u/L Absolute Lymphs (auto) 0.50 L (1.0-4.6) x10^3/uL Absolute Monos (auto) 0.63 (0.0-1.3) x10^3/uL Absolute Nucleated RBC 0.00 (0.00-0.01) x10^3u/L Lymphocytes % 3.3 L (24.0-44.0) % Monocytes % 4.2 (0.0-12.0) % Eosinophils % 0.0 (0.00-5.0) % Basophils % 0.1 (0.0-0.4) % Absolute Granulocytes 13.80 H (1.4-6.9) x10^3/uL Basophils # 0.02 (0-0.4) x10^3/uL D-Dimer 0.66 H* (0.0-0.50) mg/L Sodium 140 (137-145) mmol/L Potassium 3.3 L (3.5-5.1) mmol/L Chloride 99 (98-107) mmol/L Carbon Dioxide 29 (22-30) mmol/L Anion Gap 14.5 (5-15) MEQ/L BUN 38 H (7-17) mg/dL Creatinine 1.81 H (0.52-1.04) mg/dL Estimated GFR 28.0 ML/MIN Glucose 174 H (74-106) mg/dL POC Glucometer (74 to 106) mg/dL Calcium 8.7 (8.4-10.2) mg/dL Magnesium 1.9 (1.6-2.3) mg/dL Slides for Path Review YES 09/28/22 Range/Units 06:36 WBC (4.0-10.5) x10^3/uL RBC (4.1-5.4) x10^6/uL Hgb (12.0-16.0) g/dL Hct (35-47) % MCV (78-100) fL MCH (26-32) pg MCHC (32-36) g/dL RDW (11.5-14.0) % Plt Count (150-450) x10^3/uL MPV (7.5-11.0) fL Gran % (36.0-66.0) % Immature Gran % (Auto) (0.00-0.4) % Nucleat RBC Rel Count (0.00-0.1) % Eos # (Auto) (0-0.5) x10^3/uL Immature Gran # (Auto) (0.00-0.03) x10^3u/L Absolute Lymphs (auto) (1.0-4.6) x10^3/uL Absolute Monos (auto) (0.0-1.3) x10^3/uL Absolute Nucleated RBC (0.00-0.01) x10^3u/L Lymphocytes % (24.0-44.0) % Monocytes % (0.0-12.0) % Eosinophils % (0.00-5.0) % Basophils % (0.0-0.4) % Absolute Granulocytes (1.4-6.9) x10^3/uL Basophils # (0-0.4) x10^3/uL D-Dimer (0.0-0.50) mg/L Sodium (137-145) mmol/L Potassium (3.5-5.1) mmol/L Chloride (98-107) mmol/L Carbon Dioxide (22-30) mmol/L Anion Gap (5-15) MEQ/L BUN (7-17) mg/dL Creatinine (0.52-1.04) mg/dL Estimated GFR ML/MIN Glucose (74-106) mg/dL POC Glucometer 171 H (74 to 106) mg/dL Calcium (8.4-10.2) mg/dL Magnesium (1.6-2.3) mg/dL Slides for Path Review Radiology Exams: Radiology Procedures Category Date Time Status CHEST 1 VIEW (PORTABLE) Routine Exams 09/28/22 09:28 Ordered Multi-Disciplinary Progress Notes: Multi-Disciplinary Progress Notes 09/27/22 10:22 Case Management Note by Nettie Richards IN DC PLANS AT THIS TIME Initialized on 09/27/22 10:22 - END OF NOTE Assessment/Plan (1) Pneumonia due to COVID-19 virus Current Visit: Yes Status: Acute Assessment & Plan: repeat chest xray today, on rocephin/zithromax. initial chest xray negative per radiology. continue lovenox 40mg daily Code(s): U07.1 - COVID-19; J12.82 - PNEUMONIA DUE TO CORONAVIRUS DISEASE 2019 (2) CHF (congestive heart failure) Current Visit: Yes Status: Acute Assessment & Plan: diuresing well with IV lasix, will continue to monitor, appears to still have volume overload on exam today. will get xray Code(s): I50.9 - HEART FAILURE, UNSPECIFIED (3) Vomiting and diarrhea Current Visit: Yes Status: Acute Code(s): R11.10 - VOMITING, UNSPECIFIED; R19.7 - DIARRHEA, UNSPECIFIED
[2022-09-28] MEDS: PROTONIX 40 MG IV IV SCH (10:06)
[2022-09-28] MEDS: Imdur 30 MG PO SCH (10:06)
[2022-09-28] MEDS: FOLATE 1 MG PO SCH (10:07)
[2022-09-28] MEDS: Klor Con PO SCH ×2 (10:07→22:41)
[2022-09-28] MEDS: SYNTHROID 25 MCG PO SCH (10:07)
[2022-09-28] MEDS: Lasix 40 MG/4 ML IV SCH ×2 (10:07→22:41)
[2022-09-28] MEDS: Pepcid 20 MG PO SCH ×2 (10:07→22:41)
[2022-09-28] MEDS: ZOCOR 20MG PO SCH (10:07)
[2022-09-28] MEDS: NORVASC 5 MG PO SCH (10:07)
[2022-09-28] MEDS: Namenda 5 MG PO SCH (10:07)
[2022-09-28] MEDS: Lopressor 50 MG PO SCH ×2 (10:08→22:41)
[2022-09-28] MEDS: Tricor 145 MG PO SCH (10:08)
[2022-09-28] MEDS: ENOXAPARIN SODIUM SQ SCH (10:09)
[2022-09-28] MEDS: ROCEPHIN 1 Gm-D5w 50 ml Bag** 1 G/50 ML IVPB IV SCH (10:10)
--- NOTE | 2022-09-28 10:54 | XRAY ---
Indication: Covid 19. CHF. Comparison: September 25, 2022 Portable chest again hyperinflated with new bilateral upper lobe hazy airspace disease without consolidation/large effusion. 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 Bony thorax intact again with osteopenia and mild degenerative changes.
[2022-09-28] MEDS: Zithromax 500 MG/ 250 ML NaCl Premix 500 MG/250 ML IVPB IV SCH (10:58)
[2022-09-28] MEDS: THERAGRAN MULTIVITAMIN PO SCH (12:31)
[2022-09-28] MEDS: MAG-OX 400 PO SCH (12:31)
[2022-09-28] MEDS: PLAVIX Tablet PO SCH (12:31)
[2022-09-28] MEDS: Cordarone 200 MG PO SCH (12:31)
[2022-09-28] MEDS: Cozaar 50 MG PO SCH (22:40)
[2022-09-29 05:16] LABS: BASOPHIL % 0.1 % (0.0-0.4); Basophil (Absolute #) 0.01 x10^3/uL (0-0.4); Eosinophil % 0.2 % (0.00-5.0); Eosinophil (Absolute #) 0.02 x10^3/uL (0-0.5); Hematocrit 28.1 % (35-47); Hemoglobin 9.2 g/dL (12.0-16.0); IMMATURE GRAN # 0.05 x10^3u/L (0.00-0.03); IMMATURE GRAN % 0.6 % (0.00-0.4); Lymphocyte (Absolute #) 0.93 x10^3/uL (1.0-4.6); Lymphocytes % 10.5 % (24.0-44.0); Mean Cell Volume 92.7 fL (78-100); Mean Corpuscular Hemoglobin 30.4 pg (26-32); Mean Corpuscular Hgb Concent. 32.7 g/dL (32-36); Mean Platelet Volume 9.6 fL (7.5-11.0); Monocyte (Absolute #) 0.42 x10^3/uL (0.0-1.3); Monocytes % 4.8 % (0.0-12.0); Neutrophil % 83.8 % (36.0-66.0); Platelet Count 405 x10^3/uL (150-450); Red Blood Count 3.03 x10^6/uL (4.1-5.4); Red Cell Distribution Width 14.6 % (11.5-14.0); White Blood Count 8.8 x10^3/uL (4.0-10.5)
[2022-09-29 05:43] LABS: ANION GAP 13.9 MEQ/L (5-15); Calcium 8.6 mg/dL (8.4-10.2); Creatinine 1 1.8 mg/dL (0.52-1.04); EST GLOMERULAR FILTRATION RATE 28.2 ML/MIN; Potassium 3.2 mmol/L (3.5-5.1)
--- NOTE | 2022-09-29 09:02 | PCM.NOTE ---
Date and Time: 09/29/22 09 Subjective Assessment: patient has some cough but denies dypspnea, still with significant oxygen requirements, tolerating po, she is weak Objective Exam General Appearance: no apparent distress Neurologic Exam: oriented x 3 Respiratory Exam: crackles/rales (mild, no wheezing, no increased work of breathing) Cardiovascular Exam: regular rate/rhythm Gastrointestinal/Abdomen Exam: soft, No tenderness, No mass Extremity Exam: normal inspection, normal range of motion OBJECTIVE DATA Vital Signs: Vital Signs - 24 hr Temp Pulse Resp BP Pulse Ox 09/29/22 08:00 96.5 F 68 16 124/50 91 L 09/29/22 06:00 20 09/29/22 05:54 90 L 09/29/22 04:00 97.8 F 67 22 144/68 90 L 09/29/22 02:00 63 28 H 89 L 09/29/22 00:00 97.8 F 68 18 130/74 92 L 09/28/22 22:00 67 21 91 L 09/28/22 20:00 97.6 F 72 20 133/62 89 L 09/28/22 19:59 90 L 09/28/22 19:39 95 09/28/22 17:54 66 92 L 09/28/22 16:00 98.0 F 62 16 112/47 93 L 09/28/22 14:00 98.0 F 62 16 139/49 93 L 09/28/22 12:00 98.0 F 60 16 112/57 91 L 09/28/22 09:12 66 91 L Pain Assessment - Last Documented Pain Intensity 0 Intake and Output: Intake & Output 09/26/22 09/27/22 09/28/22 09/29/22 11:59 11:59 11:59 11:59 Intake Total 1311 2882 1400 1860 Output Total 1300 2000 2150 600 Balance 11 882 -750 1260 Weight 70.4 kg 70.6 kg 70.5 kg Lab Results: Lab Results-Last 24 Hours 09/28/22 09/28/22 09/28/22 Range/Units 11:35 16:01 22:08 WBC (4.0-10.5) x10^3/uL RBC (4.1-5.4) x10^6/uL Hgb (12.0-16.0) g/dL Hct (35-47) % MCV (78-100) fL MCH (26-32) pg MCHC (32-36) g/dL RDW (11.5-14.0) % Plt Count (150-450) x10^3/uL MPV (7.5-11.0) fL Gran % (36.0-66.0) % Immature Gran % (Auto) (0.00-0.4) % Nucleat RBC Rel Count (0.00-0.1) % Eos # (Auto) (0-0.5) x10^3/uL Immature Gran # (Auto) (0.00-0.03) x10^3u/L Absolute Lymphs (auto) (1.0-4.6) x10^3/uL Absolute Monos (auto) (0.0-1.3) x10^3/uL Absolute Nucleated RBC (0.00-0.01) x10^3u/L Lymphocytes % (24.0-44.0) % Monocytes % (0.0-12.0) % Eosinophils % (0.00-5.0) % Basophils % (0.0-0.4) % Absolute Granulocytes (1.4-6.9) x10^3/uL Basophils # (0-0.4) x10^3/uL D-Dimer (0.0-0.50) mg/L Sodium (137-145) mmol/L Potassium (3.5-5.1) mmol/L Chloride (98-107) mmol/L Carbon Dioxide (22-30) mmol/L Anion Gap (5-15) MEQ/L BUN (7-17) mg/dL Creatinine (0.52-1.04) mg/dL Estimated GFR ML/MIN Glucose (74-106) mg/dL POC Glucometer 192 H 136 H 137 H (74 to 106) mg/dL Calcium (8.4-10.2) mg/dL Magnesium (1.6-2.3) mg/dL 09/29/22 09/29/22 09/29/22 Range/Units 04:29 04:29 04:29 WBC 8.8 (4.0-10.5) x10^3/uL RBC 3.03 L (4.1-5.4) x10^6/uL Hgb 9.2 L (12.0-16.0) g/dL Hct 28.1 L (35-47) % MCV 92.7 (78-100) fL MCH 30.4 (26-32) pg MCHC 32.7 (32-36) g/dL RDW 14.6 H (11.5-14.0) % Plt Count 405 (150-450) x10^3/uL MPV 9.6 (7.5-11.0) fL Gran % 83.8 H (36.0-66.0) % Immature Gran % (Auto) 0.6 H (0.00-0.4) % Nucleat RBC Rel Count 0.0 (0.00-0.1) % Eos # (Auto) 0.02 (0-0.5) x10^3/uL Immature Gran # (Auto) 0.05 H (0.00-0.03) x10^3u/L Absolute Lymphs (auto) 0.93 L (1.0-4.6) x10^3/uL Absolute Monos (auto) 0.42 (0.0-1.3) x10^3/uL Absolute Nucleated RBC 0.00 (0.00-0.01) x10^3u/L Lymphocytes % 10.5 L (24.0-44.0) % Monocytes % 4.8 (0.0-12.0) % Eosinophils % 0.2 (0.00-5.0) % Basophils % 0.1 (0.0-0.4) % Absolute Granulocytes 7.40 H (1.4-6.9) x10^3/uL Basophils # 0.01 (0-0.4) x10^3/uL D-Dimer 0.97 H* (0.0-0.50) mg/L Sodium 139 (137-145) mmol/L Potassium 3.2 L (3.5-5.1) mmol/L Chloride 97 L (98-107) mmol/L Carbon Dioxide 31 H (22-30) mmol/L Anion Gap 13.9 (5-15) MEQ/L BUN 30 H (7-17) mg/dL Creatinine 1.80 H (0.52-1.04) mg/dL Estimated GFR 28.2 ML/MIN Glucose 111 H (74-106) mg/dL POC Glucometer (74 to 106) mg/dL Calcium 8.6 (8.4-10.2) mg/dL Magnesium 2.0 (1.6-2.3) mg/dL 09/29/22 Range/Units 08:01 WBC (4.0-10.5) x10^3/uL RBC (4.1-5.4) x10^6/uL Hgb (12.0-16.0) g/dL Hct (35-47) % MCV (78-100) fL MCH (26-32) pg MCHC (32-36) g/dL RDW (11.5-14.0) % Plt Count (150-450) x10^3/uL MPV (7.5-11.0) fL Gran % (36.0-66.0) % Immature Gran % (Auto) (0.00-0.4) % Nucleat RBC Rel Count (0.00-0.1) % Eos # (Auto) (0-0.5) x10^3/uL Immature Gran # (Auto) (0.00-0.03) x10^3u/L Absolute Lymphs (auto) (1.0-4.6) x10^3/uL Absolute Monos (auto) (0.0-1.3) x10^3/uL Absolute Nucleated RBC (0.00-0.01) x10^3u/L Lymphocytes % (24.0-44.0) % Monocytes % (0.0-12.0) % Eosinophils % (0.00-5.0) % Basophils % (0.0-0.4) % Absolute Granulocytes (1.4-6.9) x10^3/uL Basophils # (0-0.4) x10^3/uL D-Dimer (0.0-0.50) mg/L Sodium (137-145) mmol/L Potassium (3.5-5.1) mmol/L Chloride (98-107) mmol/L Carbon Dioxide (22-30) mmol/L Anion Gap (5-15) MEQ/L BUN (7-17) mg/dL Creatinine (0.52-1.04) mg/dL Estimated GFR ML/MIN Glucose (74-106) mg/dL POC Glucometer 105 (74 to 106) mg/dL Calcium (8.4-10.2) mg/dL Magnesium (1.6-2.3) mg/dL Radiology Exams: Radiology Procedures Category Date Time Status CHEST 1 VIEW (PORTABLE) Routine Exams 09/28/22 09:28 Completed ECHO W/2D AND DOPPLER [US] Routine Exams 09/29/22 08:58 Ordered Multi-Disciplinary Progress Notes: Multi-Disciplinary Progress Notes 09/28/22 13:13 Case Management Note by Nettie Richards S/W PATIENT- SHE CONTINUES TO DENY ANY NEW NEEDS AT TIME OF DC. SHE REPORTS IF SHE NEEDS ANY ASSISTANCE THAT HER WILL BE ABLE TO ASSIST. SHE DECLINES ANY HHC AT THIS TIME Initialized on 09/28/22 13:13 - END OF NOTE 09/28/22 10:15 Case Management Note by Nettie Richards PRIMARY RN GAVE PULSE OX TO PATIENT TO TAKE HOME AT TIME OF DC. Initialized on 09/28/22 10:15 - END OF NOTE Assessment/Plan (1) Pneumonia due to COVID-19 virus Current Visit: Yes Status: Acute Assessment & Plan: continue rocephin/zithromax, lovenox, addition of decadron today. repeat chest xray Code(s): U07.1 - COVID-19; J12.82 - PNEUMONIA DUE TO CORONAVIRUS DISEASE 2019 (2) CHF (congestive heart failure) Current Visit: Yes Status: Acute Assessment & Plan: appears more euvolemic and has diuresed well, still with significant oxygen requirements. will get echo and consult [facility], follows with Dr Yoon Code(s): I50.9 - HEART FAILURE, UNSPECIFIED (3) Vomiting and diarrhea Current Visit: Yes Status: Acute Assessment & Plan: resolved since admission Code(s): R11.10 - VOMITING, UNSPECIFIED; R19.7 - DIARRHEA, UNSPECIFIED
[2022-09-29] MEDS: Novolin N SQ SCH ×2 (09:22→20:56)
[2022-09-29] MEDS: Glucophage 500 MG PO SCH ×2 (09:22→18:05)
[2022-09-29] MEDS: PROTONIX 40 MG IV IV SCH (09:40)
[2022-09-29] MEDS: ROCEPHIN 1 Gm-D5w 50 ml Bag** 1 G/50 ML IVPB IV SCH (09:41)
[2022-09-29] MEDS: Tricor 145 MG PO SCH (09:41)
[2022-09-29] MEDS: Pepcid 20 MG PO SCH ×2 (09:42→20:53)
[2022-09-29] MEDS: Lopressor 50 MG PO SCH ×2 (09:42→20:53)
[2022-09-29] MEDS: Imdur 30 MG PO SCH (09:43)
[2022-09-29] MEDS: NORVASC 5 MG PO SCH (09:43)
[2022-09-29] MEDS: FOLATE 1 MG PO SCH (09:43)
[2022-09-29] MEDS: ENOXAPARIN SODIUM SQ SCH (09:44)
[2022-09-29] MEDS: ZOCOR 20MG PO SCH (09:44)
[2022-09-29] MEDS: Namenda 5 MG PO SCH (09:44)
[2022-09-29] MEDS: SYNTHROID 25 MCG PO SCH (09:44)
[2022-09-29] MEDS: Klor Con PO SCH ×2 (09:44→20:53)
--- NOTE | 2022-09-29 09:59 | XRAY ---
Indication: Follow-up Covid 19. Comparison: One day earlier. Portable chest again hyperinflated with stable to minimally improving bilateral upper lobe hazy airspace disease. 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
[2022-09-29] MEDS: DECADRON 10MG INJ. IV SCH (10:05)
[2022-09-29] MEDS: Lasix 40 MG/4 ML IV SCH (10:05)
[2022-09-29] MEDS: Zithromax 500 MG/ 250 ML NaCl Premix 500 MG/250 ML IVPB IV SCH (11:14)
[2022-09-29] MEDS: Cordarone 200 MG PO SCH (11:48)
[2022-09-29] MEDS: PLAVIX Tablet PO SCH (11:48)
[2022-09-29] MEDS: MAG-OX 400 PO SCH (11:49)
[2022-09-29] MEDS: THERAGRAN MULTIVITAMIN PO SCH (11:49)
[2022-09-29 16:48] LABS: Iron 13 ug/dL (37-170); Iron Saturation 5 % (20-39); TIBC 253 ug/dL (265-462)
[2022-09-29] MEDS: HUMALOG SQ PRN ×2 (18:05→21:57)
[2022-09-29] MEDS: Cozaar 50 MG PO SCH (20:53)
[2022-09-30 04:47] LABS: Absolute Neutrophil Ct (ANC) 6.48 x10^3/uL (1.4-6.9); Basophil (Absolute #) 0 x10^3/uL (0-0.4); Eosinophil (Absolute #) 0 x10^3/uL (0-0.5); Hematocrit 26.6 % (35-47); Hemoglobin 8.9 g/dL (12.0-16.0); IMMATURE GRAN # 0.06 x10^3u/L (0.00-0.03); IMMATURE GRAN % 0.8 % (0.00-0.4); Lymphocyte (Absolute #) 0.52 x10^3/uL (1.0-4.6); Mean Corpuscular Hemoglobin 31.1 pg (26-32); Mean Corpuscular Hgb Concent. 33.5 g/dL (32-36); Mean Platelet Volume 9.4 fL (7.5-11.0); Monocyte (Absolute #) 0.38 x10^3/uL (0.0-1.3); Monocytes % 5.1 % (0.0-12.0); Neutrophil % 87.1 % (36.0-66.0); Platelet Count 385 x10^3/uL (150-450); Red Blood Count 2.86 x10^6/uL (4.1-5.4); Red Cell Distribution Width 14.3 % (11.5-14.0); White Blood Count 7.4 x10^3/uL (4.0-10.5)
[2022-09-30 05:19] LABS: ANION GAP 13.2 MEQ/L (5-15); Creatinine 1 1.82 mg/dL (0.52-1.04); EST GLOMERULAR FILTRATION RATE 27.9 ML/MIN; MAGNESIUM 2.2 mg/dL (1.6-2.3); Potassium 4.1 mmol/L (3.5-5.1)
[2022-09-30 06:04] LABS: Slide Review 1 YES
[2022-09-30 06:58] VITALS: BP 135/53; PULSE 63; O2SAT 95
[2022-09-30] MEDS: Novolin N SQ SCH (08:13)
[2022-09-30] MEDS: Glucophage 500 MG PO SCH (08:13)
--- NOTE | 2022-09-30 08:40 | PCM.DS ---
Discharge Summary Date of Admission: 09/27/22 09:30 Admitting Physician: ZELDA RUSSELL Consults: Consults on Case 09/29/22 08:59 Consult Cardiology ROUTINE Primary Care Provider: MICHAEL AMADO Allergies Allergies No Known Drug Allergies Allergy (Verified 04/27/22 11:41) Hospital Summary - Hospital Course Hospital Course: patient was admitted with vomiting and dehydration, +covid. developed heart failure and volume overload, has diuresed well, down to 2L oxygen at this time. she denies any chest pain, no shortness of breath, cough improved. has some mild infiltrate on chest xray. - Vitals & Intake/Output Vital Signs: Vital Signs Temperature 97.8 F 09/30/22 06:00 Pulse Rate 63 09/30/22 06:00 Respiratory Rate 16 09/30/22 06:00 Blood Pressure 135/53 09/30/22 06:00 O2 Sat by Pulse Oximetry 95 09/30/22 07:52 Intake & Output: Intake & Output 09/27/22 09/28/22 09/29/22 09/30/22 11:59 11:59 11:59 11:59 Intake Total 2882 1400 1860 1340 Output Total 2000 2150 600 Balance 882 -750 1260 1340 Weight 70.6 kg 70.5 kg 69.4 kg 69 kg - Lab Result Diagrams: 09/30/22 04:22 09/30/22 04:22 Lab Results-Last 24 Hrs: Lab Results-Last 24 Hours 09/29/22 09/29/22 09/29/22 Range/Units 12:12 16:17 21:20 WBC (4.0-10.5) x10^3/uL RBC (4.1-5.4) x10^6/uL Hgb (12.0-16.0) g/dL Hct (35-47) % MCV (78-100) fL MCH (26-32) pg MCHC (32-36) g/dL RDW (11.5-14.0) % Plt Count (150-450) x10^3/uL MPV (7.5-11.0) fL Gran % (36.0-66.0) % Immature Gran % (Auto) (0.00-0.4) % Nucleat RBC Rel Count (0.00-0.1) % Eos # (Auto) (0-0.5) x10^3/uL Immature Gran # (Auto) (0.00-0.03) x10^3u/L Absolute Lymphs (auto) (1.0-4.6) x10^3/uL Absolute Monos (auto) (0.0-1.3) x10^3/uL Absolute Nucleated RBC (0.00-0.01) x10^3u/L Lymphocytes % (24.0-44.0) % Monocytes % (0.0-12.0) % Eosinophils % (0.00-5.0) % Basophils % (0.0-0.4) % Absolute Granulocytes (1.4-6.9) x10^3/uL Basophils # (0-0.4) x10^3/uL Sodium (137-145) mmol/L Potassium (3.5-5.1) mmol/L Chloride (98-107) mmol/L Carbon Dioxide (22-30) mmol/L Anion Gap (5-15) MEQ/L BUN (7-17) mg/dL Creatinine (0.52-1.04) mg/dL Estimated GFR ML/MIN Glucose (74-106) mg/dL POC Glucometer 153 H 255 H 196 H (74 to 106) mg/dL Calcium (8.4-10.2) mg/dL Magnesium (1.6-2.3) mg/dL Iron (37-170) ug/dL TIBC (265-462) ug/dL Iron Saturation (20-39) % Ferritin (11.1-264) ng/mL Slides for Path Review 09/29/22 09/29/22 09/30/22 Range/Units Unknown Unknown 04:22 WBC 7.4 (4.0-10.5) x10^3/uL RBC 2.86 L (4.1-5.4) x10^6/uL Hgb 8.9 L (12.0-16.0) g/dL Hct 26.6 L (35-47) % MCV 93.0 (78-100) fL MCH 31.1 (26-32) pg MCHC 33.5 (32-36) g/dL RDW 14.3 H (11.5-14.0) % Plt Count 385 (150-450) x10^3/uL MPV 9.4 (7.5-11.0) fL Gran % 87.1 H (36.0-66.0) % Immature Gran % (Auto) 0.8 H (0.00-0.4) % Nucleat RBC Rel Count 0.0 (0.00-0.1) % Eos # (Auto) 0 (0-0.5) x10^3/uL Immature Gran # (Auto) 0.06 H (0.00-0.03) x10^3u/L Absolute Lymphs (auto) 0.52 L (1.0-4.6) x10^3/uL Absolute Monos (auto) 0.38 (0.0-1.3) x10^3/uL Absolute Nucleated RBC 0.00 (0.00-0.01) x10^3u/L Lymphocytes % 7.0 L (24.0-44.0) % Monocytes % 5.1 (0.0-12.0) % Eosinophils % 0.0 (0.00-5.0) % Basophils % 0.0 (0.0-0.4) % Absolute Granulocytes 6.48 (1.4-6.9) x10^3/uL Basophils # 0 (0-0.4) x10^3/uL Sodium (137-145) mmol/L Potassium (3.5-5.1) mmol/L Chloride (98-107) mmol/L Carbon Dioxide (22-30) mmol/L Anion Gap (5-15) MEQ/L BUN (7-17) mg/dL Creatinine (0.52-1.04) mg/dL Estimated GFR ML/MIN Glucose (74-106) mg/dL POC Glucometer (74 to 106) mg/dL Calcium (8.4-10.2) mg/dL Magnesium (1.6-2.3) mg/dL Iron 13 L (37-170) ug/dL TIBC 253 L (265-462) ug/dL Iron Saturation 5 L (20-39) % Ferritin 559 H (11.1-264) ng/mL Slides for Path Review YES 09/30/22 09/30/22 Range/Units 04:22 06:19 WBC (4.0-10.5) x10^3/uL RBC (4.1-5.4) x10^6/uL Hgb (12.0-16.0) g/dL Hct (35-47) % MCV (78-100) fL MCH (26-32) pg MCHC (32-36) g/dL RDW (11.5-14.0) % Plt Count (150-450) x10^3/uL MPV (7.5-11.0) fL Gran % (36.0-66.0) % Immature Gran % (Auto) (0.00-0.4) % Nucleat RBC Rel Count (0.00-0.1) % Eos # (Auto) (0-0.5) x10^3/uL Immature Gran # (Auto) (0.00-0.03) x10^3u/L Absolute Lymphs (auto) (1.0-4.6) x10^3/uL Absolute Monos (auto) (0.0-1.3) x10^3/uL Absolute Nucleated RBC (0.00-0.01) x10^3u/L Lymphocytes % (24.0-44.0) % Monocytes % (0.0-12.0) % Eosinophils % (0.00-5.0) % Basophils % (0.0-0.4) % Absolute Granulocytes (1.4-6.9) x10^3/uL Basophils # (0-0.4) x10^3/uL Sodium 136 L (137-145) mmol/L Potassium 4.1 D (3.5-5.1) mmol/L Chloride 97 L (98-107) mmol/L Carbon Dioxide 29 (22-30) mmol/L Anion Gap 13.2 (5-15) MEQ/L BUN 35 H (7-17) mg/dL Creatinine 1.82 H (0.52-1.04) mg/dL Estimated GFR 27.9 ML/MIN Glucose 223 H (74-106) mg/dL POC Glucometer 189 H (74 to 106) mg/dL Calcium 9.0 (8.4-10.2) mg/dL Magnesium 2.2 (1.6-2.3) mg/dL Iron (37-170) ug/dL TIBC (265-462) ug/dL Iron Saturation (20-39) % Ferritin (11.1-264) ng/mL Slides for Path Review Micro Results-Entire Visit: Microbiology 09/25/22 15:29 Blood Culture - Preliminary Blood 09/25/22 15:23 Blood Culture - Preliminary Blood Accuchecks Date 09/30/22 Date 09/29/22 Date 09/29/22 Time 06:58 Time 17:54 Time 12:24 - Radiology Exams Ordered Rad Exams-Entire Visit: Radiology Procedures Category Date Time Status CHEST 1 VIEW (PORTABLE) Routine Exams 09/28/22 09:28 Completed CHEST 1 VIEW (PORTABLE) Routine Exams 09/29/22 09:03 Completed ECHO W/2D AND DOPPLER [US] Routine Exams 09/29/22 08:58 Taken - Procedures and Test Procedures and Tests throughout Hospitalization: Therapy Orders & Screens 09/25/22 18:33 Oxygen Nasal Cannula 5 lpm Comment: Discharge Exam General Appearance: no apparent distress Neurologic Exam: alert, oriented x 3 Respiratory Exam: lungs clear, crackles/rales (nearly resolved,), No accessory muscle use Cardiovascular Exam: regular rate/rhythm, normal heart sounds Gastrointestinal/Abdomen Exam: soft, No tenderness, No mass Extremity Exam: normal inspection, normal range of motion Skin Exam: normal color, warm, dry Final Diagnosis/Problem List - Final Discharge Diagnosis/Problem (1) Pneumonia due to COVID-19 virus Current Visit: Yes Status: Acute Assessment & Plan: patient requiring oxygen to maintain sats, currently on 2L will qualify for home oxygen. Code(s): U07.1 - COVID-19; J12.82 - PNEUMONIA DUE TO CORONAVIRUS DISEASE 2018 (2) CHF (congestive heart failure) Current Visit: Yes Status: Acute Assessment & Plan: home on lasix 20mg po daily Code(s): I50.9 - HEART FAILURE, UNSPECIFIED (3) Vomiting and diarrhea Current Visit: Yes Status: Acute Code(s): R11.10 - VOMITING, UNSPECIFIED; R19.7 - DIARRHEA, UNSPECIFIED - Discharge Disposition: Home, Self-Care Condition: Good Prescriptions: New Cefdinir 300 mg PO BID #10 cap dexAMETHasone [Dexamethasone] 6 mg PO DAILY #5 tablet Potassium Chloride Tab* [Klor Con] 10 meq PO DAILY #30 tab Furosemide 20 mg [Lasix 20 mg] 20 mg PO DAILY #30 tablet Continue Fenofibrate Nanocrystallized [Fenofibrate] 48 mg PO DAILY NPH, Human Insulin Isophane [Humulin N] 10 units SQ QAM Metoprolol Tartrate 50 mg [Lopressor 50 MG] 25 mg PO BID Metformin HCl 500 mg PO BIDWM Amlodipine Besylate 5 mg PO DAILY Losartan Potassium 100 mg PO HS Isosorbide Mononitrate [Isosorbide Mononitrate ER] 30 mg PO DAILY Folic Acid 1 mg [Folate 1 mg] 1 mg PO DAILY Clopidogrel Bisulfate [Clopidogrel] 75 mg PO 1200 Amiodarone HCl 200 mg [Cordarone 200 MG] 200 mg PO 1200 Multivitamin W-Minerals/Lutein [Centrum Silver Tablet] 1 each PO 1200 Magnesium Oxide [Magnesium] 400 mg PO 1200 Memantine HCl [Memantine HCl ER] 28 mg PO DAILY Rosuvastatin Calcium 10 mg PO DAILY Levothyroxine Sodium 25 mcg PO QAM Famotidine 20 mg [Pepcid 20 MG] 20 mg PO BID Insulin NPH Human Isophane [Humulin N Kwikpen] 3 unit SQ HS Follow up with: VIDHI VALLEJO [CONSULTING PHYSICIAN] - (1-2 weeks) MICHAEL AMADO [Primary Care Provider] - 1 Week
[2022-09-30] MEDS: DECADRON 10MG INJ. IV SCH (09:43)
[2022-09-30] MEDS: PROTONIX 40 MG IV IV SCH (09:43)
[2022-09-30] MEDS: ENOXAPARIN SODIUM SQ SCH (09:43)
[2022-09-30] MEDS: ROCEPHIN 1 Gm-D5w 50 ml Bag** 1 G/50 ML IVPB IV SCH (09:44)
[2022-09-30] MEDS: Zithromax 500 MG/ 250 ML NaCl Premix 500 MG/250 ML IVPB IV SCH (09:44)
[2022-09-30] MEDS: ZOCOR 20MG PO SCH (09:53)
[2022-09-30] MEDS: NORVASC 5 MG PO SCH (09:53)
[2022-09-30] MEDS: FOLATE 1 MG PO SCH (09:53)
[2022-09-30] MEDS: Pepcid 20 MG PO SCH (09:53)
[2022-09-30] MEDS: Lopressor 50 MG PO SCH (09:53)
[2022-09-30] MEDS: Imdur 30 MG PO SCH (09:54)
[2022-09-30] MEDS: Klor Con PO SCH (09:54)
[2022-09-30] MEDS: SYNTHROID 25 MCG PO SCH (09:55)
[2022-09-30] MEDS: Namenda 5 MG PO SCH (09:55)
[2022-09-30] MEDS: Tricor 145 MG PO SCH (09:55)
[2022-09-30] MEDS: Lasix 40 MG/4 ML IV SCH (10:16)
== END 2022-09-30 11:18 | disposition home or self-care (01) | DRG 177 ==
LOC: ED 14:59 → MED SURG 18:31 → OBSVTOIN 09-27 09:30
PROVIDERS: ADMIT General Practice; ATTEND Family Medicine
DX: U07.1 COVID-19 (principal); J12.82 Pneumonia due to coronavirus disease 2019; I11.0 Hypertensive heart disease with heart failure; I50.9 Heart failure, unspecified; R11.10 Vomiting, unspecified; I25.10 Atherosclerotic heart disease of native coronary artery without angina pectoris; E11.9 Type 2 diabetes mellitus without complications; R79.89 Other specified abnormal findings of blood chemistry; Z79.01 Long term (current) use of anticoagulants; Z79.899 Other long term (current) drug therapy; Z20.828 Contact with and (suspected) exposure to other viral communicable diseases; Z95.0 Presence of cardiac pacemaker
CPT/HCPCS: 0241U; 36000; 36415; 36600; 71045; 80048; 80053; 81001; 82375; 82728; 82803; 82947; 83036; 83540; 83550; 83605; 83690; 83735; 83880; 84145; 84484; 85025; 85379; 87040; 93005; 93041; 93268; 93306; 94640; 94762; 96365; 96367; 96374; 96375; 99284; G0378; J0456; J0696; J1100; J1650; J1815; J1817; J1940; J2405; J2920; J2930; Q3014; A9270-GY

== ENCOUNTER 2023-04-20 08:02 | Emergency (ER) | payer MEDICARE, BC ==
--- NOTE | 2023-04-20 08:07 | ERPHSYRPT ---
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 However on examination she also states that her head neck chest and bilateral arms are numb. Her room air oxygen saturation levels 97%. Patient denies chest pain. Patient denies abdominal pain. Patient has a history of hypertension, hyperlipidemia, diabetes, atrial fibrillation (Plavix, amiodarone), pacemaker placed, CHF, hypothyroidism, dementia, coronary disease and peripheral vascular disease. Patient is a former smoker of cigarettes. 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 Patient lives at home with her elderly . Timing/Duration: today Activities at Onset: none Severity of Dyspnea-Max: mild Severity of Dyspnea-Current: mild Possible Cause: occasional episodes Modifying Factors: Improves With: nothing Associated Symptoms: anxiety, tingling face, tingling hands, No chest pain/discomfort, No wheezing Allergies/Adverse Reactions: No Known Drug Allergies Allergy (Verified 04/20/23 08:23) Home Medications: Amlodipine Besylate 5 mg PO DAILY 07/04/17 [History] Fenofibrate Nanocrystallized [Fenofibrate] 48 mg PO DAILY 07/04/17 [History] Metformin HCl 500 mg PO BIDWM 07/04/17 [History] Metoprolol Tartrate 50 mg [Lopressor 50 MG] 25 mg PO BID 07/04/17 [History] Clopidogrel Bisulfate [Clopidogrel] 75 mg PO 1200 08/14/19 [History] Folic Acid 1 mg [Folate 1 mg] 1 mg PO DAILY 08/14/19 [History] Isosorbide Mononitrate [Isosorbide Mononitrate ER] 30 mg PO DAILY 08/14/19 [History] Losartan Potassium 100 mg PO HS 08/14/19 [History] Amiodarone HCl 200 mg [Cordarone 200 MG] 200 mg PO 1200 08/25/19 [History] Magnesium Oxide [Magnesium] 400 mg PO 1200 09/28/20 [History] Multivitamin W-Minerals/Lutein [Centrum Silver Tablet] 1 each PO 1200 09/28/20 [History] Levothyroxine Sodium 25 mcg PO QAM 09/25/22 [History] Memantine HCl [Memantine HCl ER] 28 mg PO DAILY 09/25/22 [History] Tofacitinib Citrate [Xeljanz Xr] 11 mg PO BID 04/20/23 [History] Hx Tetanus, Diphtheria Vaccination/Date Given: Yes Hx Influenza Vaccination/Date Given: No Hx Pneumococcal Vaccination/Date Given: Yes Travel Risk - International Travel Have you traveled outside of the country in past 3 weeks: No - Coronavirus Screening Are you exhibiting any of the following symptoms?: Yes Symptoms: Shortness of Breath Close contact with a COVID-19 positive Pt in past 14-21 Days: No - Vaccine Status Have you recieved a Covid-19 vaccination: Yes 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: [employer] - Vaccination Dates Date of 2cond Vaccination (if applicable): 06/27/2020 - Review of Systems Constitutional: Weakness Eyes: No Symptoms Ears, Nose, & Throat: No Symptoms Respiratory: Dyspnea Cardiac: No Symptoms Abdominal/Gastrointestinal: No Symptoms Genitourinary Symptoms: No Symptoms Musculoskeletal: No Symptoms Skin: No Symptoms Neurological: Parasthesia (Head face neck upper chest and bilateral upper extremities) Psychological: Anxiety Endocrine: No Symptoms Hematologic/Lymphatic: No Symptoms Immunological/Allergic: No Symptoms All Other Systems: Reviewed and Negative - Past Medical History Pertinent Past Medical History: Yes Neurological History: Dementia ENT History: Glaucoma Cardiac History: Angina, Coronary Artery Disease, Hypertension Respiratory History: No Pertinent History Endocrine Medical History: Diabetes Type II Musculoskeletal History: No Pertinent History GI Medical History: No Pertinent History History: No Pertinent History Psycho-Social History: No Pertinent History Female Reproductive Disorders: Abnormal Uterine Bleeding Other Medical History: . 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, - Social History Smoking Status: Former smoker Exposure to second hand smoke: No Drug Use: none Patient Lives Alone: No Significant Family History: no pertinent family hx - Nursing Vital Signs Nursing Vital Signs: Initial Vital Signs Pulse Rate 64 04/20/23 08:05 Respiratory Rate 21 04/20/23 08:05 Blood Pressure 144/53 04/20/23 08:05 O2 Sat by Pulse Oximetry 92 L 04/20/23 08:05 Pain Scale Pain Intensity 0 - Physical Exam General Appearance: mild distress, alert, anxiety Eye Exam: PERRL/EOMI, eyes nml inspection Ears, Nose, Throat Exam: hearing grossly normal, normal ENT inspection, normal pharynx Neck Exam: normal inspection, non-tender, supple, full range of motion Respiratory Exam: normal breath sounds, lungs clear, airway intact, No chest tenderness, No respiratory distress Cardiovascular/Chest Exam: normal heart sounds, regular rate/rhythm Abdominal/Gastrointestinal Exam: soft, normal bowel sounds, No tenderness Rectal Exam: not done Extremity Exam: non-tender, normal range of motion, normal inspection, normal capillary refill, no calf tenderness, no pedal edema, pelvis stable Neurologic Exam: alert, doll repairer II-XII nml as tested, other (Anxious; unable to adequately/accurately assess orientation secondary to patient's condition. She simply says I do not know I do not know when asked about her name, current place and current time) Skin Exam: normal color, warm, dry Lymphatic Exam: No adenopathy SpO2 Interpretation: normal O2 Delivery: Room Air - Course Nursing assessment & vital signs reviewed: Yes EKG Interpreted by Me: RATE (64), Other (Atrial paced complexes. No evidence of any acute ischemia.) Ordered Tests: Active Orders 24 hr Category Date Time Status Iron Installer STAT Care 04/20/23 08:18 Active EKG-ER Only STAT Care 04/20/23 08:17 Active IV Insertion STAT Care 04/20/23 08:17 Active Pulse Oximetry (ED) STAT Care 04/20/23 08:17 Active CHEST 1 VIEW (PORTABLE) Stat Exams 04/20/23 08:18 Completed HEAD WITHOUT CONTRAST [CT] Stat Exams 04/20/23 08:51 Completed BLOOD CULTURE Stat Lab 04/20/23 08:55 Received CBC W DIFF Stat Lab 04/20/23 08:25 Completed CMP Stat Lab 04/20/23 08:25 Completed MAGNESIUM Stat Lab 04/20/23 08:25 Completed NT PRO BNPII Stat Lab 04/20/23 08:25 Completed PROTIME WITH INR Stat Lab 04/20/23 08:25 Completed T4 (Thyroxine) Stat Lab 04/20/23 08:25 Completed TROPONIN Q4H Lab 04/20/23 08:25 Completed TROPONIN Q4H Lab 04/20/23 12:30 Ordered TROPONIN Q4H Lab 04/20/23 16:30 Ordered TSH, 3RD Generation Stat Lab 04/20/23 08:25 Completed UA W/RFX UR CULTURE Stat Lab 04/20/23 10:03 Completed Medication Summary Generic Name Dose Route Start Last Admin Trade Name Freq PRN Reason Stop Dose Admin Sodium Chloride 1,000 mls @ 100 mls/hr 04/20/23 08:30 04/20/23 09:31 Sodium Chloride 0.9% 1000 Ml IV 05/20/23 08:29 100 mls/hr .Q10H MONE Administration Discontinued Medications Generic Name Dose Route Start Last Admin Trade Name Freq PRN Reason Stop Dose Admin Furosemide 40 mg 04/20/23 10:11 Furosemide 40 Mg/4 Ml Vial IV 04/20/23 10:12 STAT ONE Lab/Rad Data: Laboratory Result Diagrams 04/20/23 08:25 04/20/23 08:25 Laboratory Results 04/20/23 04/20/23 04/20/23 Range/Units 10:03 08:25 08:25 WBC (4.0-10.5) x10^3/uL RBC (4.1-5.4) x10^6/uL Hgb (12.0-16.0) g/dL Hct (35-47) % MCV (78-100) fL MCH (26-32) pg MCHC (32-36) g/dL RDW (11.5-14.0) % Plt Count (150-450) x10^3/uL MPV (7.5-11.0) fL Gran % (36.0-66.0) % Immature Gran % (Auto) (0.00-0.4) % Nucleat RBC Rel Count (0.00-0.1) % Eos # (Auto) (0-0.5) x10^3/uL Immature Gran # (Auto) (0.00-0.03) x10^3u/L Absolute Lymphs (auto) (1.0-4.6) x10^3/uL Absolute Monos (auto) (0.0-1.3) x10^3/uL Absolute Nucleated RBC (0.00-0.01) x10^3u/L Lymphocytes % (24.0-44.0) % Monocytes % (0.0-12.0) % Eosinophils % (0.00-5.0) % Basophils % (0.0-0.4) % Absolute Granulocytes (1.4-6.9) x10^3/uL Basophils # (0-0.4) x10^3/uL PT (9.4-12.5) SECONDS INR (0.8-3.0) Sodium (137-145) mmol/L Potassium (3.5-5.1) mmol/L Chloride (98-107) mmol/L Carbon Dioxide (22-30) mmol/L Anion Gap (5-15) MEQ/L BUN (7-17) mg/dL Creatinine (0.52-1.04) mg/dL Estimated GFR ML/MIN Glucose (74-106) mg/dL Calcium (8.4-10.2) mg/dL Magnesium (1.6-2.3) mg/dL Total Bilirubin (0.2-1.3) mg/dL AST (14-36) U/L ALT (0-35) U/L Alkaline Phosphatase (38-126) U/L Troponin I < 0.012 (0.000-0.034) ng/mL NT-Pro-B Natriuret Pep (<300) pg/mL Serum Total Protein (6.3-8.2) g/dL Albumin (3.5-5.0) g/dL Thyroxine (T4) (5.53-10.96) ug/dL TSH 3rd Generation (0.47-4.68) mIU/L Urine Color Yellow (Yellow) Urine Appearance Clear (Clear) Urine pH 7.5 (4.6-8.0) Ur Specific [place] 1.010 (1.005-1.030) Urine Protein Negative (Negative) Urine Glucose (UA) 100 A (Negative) mg/dL Urine Ketones Trace A (Negative) Urine Blood Negative (Negative) Urine Nitrite Negative (Negative) Urine Bilirubin Negative (Negative) Urine Urobilinogen 0.2 (0.2) mg/dL Ur Leukocyte Esterase Negative (Negative) U Hyaline Cast (Auto) NONE SEEN (0-2) /LPF Urine Microscopic RBC 0-2 (0-5) /HPF Urine Microscopic WBC 0-2 (0-5) /HPF Ur Epithelial Cells None Seen (None Seen) /HPF Urine Bacteria None Seen (None Seen) /HPF Urine Culture Reflexed NO (NO) Influenza Type A Ag NEGATIVE (NEGATIVE) Influenza Type B Ag NEGATIVE (NEGATIVE) RSV (PCR) NEGATIVE (NEGATIVE) SARS-CoV-2 (PCR) NEGATIVE (NEGATIVE) 04/20/23 04/20/23 04/20/23 Range/Units 08:25 08:25 08:25 WBC 11.9 H (4.0-10.5) x10^3/uL RBC 3.03 L (4.1-5.4) x10^6/uL Hgb 9.4 L (12.0-16.0) g/dL Hct 28.9 L (35-47) % MCV 95.4 (78-100) fL MCH 31.0 (26-32) pg MCHC 32.5 (32-36) g/dL RDW 14.2 H (11.5-14.0) % Plt Count 502 H (150-450) x10^3/uL MPV 9.1 (7.5-11.0) fL Gran % 79.3 H (36.0-66.0) % Immature Gran % (Auto) 0.9 H (0.00-0.4) % Nucleat RBC Rel Count 0.0 (0.00-0.1) % Eos # (Auto) 0.15 (0-0.5) x10^3/uL Immature Gran # (Auto) 0.11 H (0.00-0.03) x10^3u/L Absolute Lymphs (auto) 1.52 (1.0-4.6) x10^3/uL Absolute Monos (auto) 0.62 (0.0-1.3) x10^3/uL Absolute Nucleated RBC 0.00 (0.00-0.01) x10^3u/L Lymphocytes % 12.8 L (24.0-44.0) % Monocytes % 5.2 (0.0-12.0) % Eosinophils % 1.3 (0.00-5.0) % Basophils % 0.5 (0.0-0.4) % Absolute Granulocytes 9.42 H (1.4-6.9) x10^3/uL Basophils # 0.06 (0-0.4) x10^3/uL PT 11.5 (9.4-12.5) SECONDS INR 1.06 (0.8-3.0) Sodium 136 L (137-145) mmol/L Potassium 3.6 (3.5-5.1) mmol/L Chloride 105 (98-107) mmol/L Carbon Dioxide 18 L (22-30) mmol/L Anion Gap 16.8 H (5-15) MEQ/L BUN 28 H (7-17) mg/dL Creatinine 1.98 H (0.52-1.04) mg/dL Estimated GFR 23.9 ML/MIN Glucose 208 H (74-106) mg/dL Calcium 9.8 (8.4-10.2) mg/dL Magnesium 2.1 (1.6-2.3) mg/dL Total Bilirubin 0.50 (0.2-1.3) mg/dL AST 24 (14-36) U/L ALT 15 (0-35) U/L Alkaline Phosphatase 59 (38-126) U/L Troponin I (0.000-0.034) ng/mL NT-Pro-B Natriuret Pep 1750 (<300) pg/mL Serum Total Protein 7.4 (6.3-8.2) g/dL Albumin 4.3 (3.5-5.0) g/dL Thyroxine (T4) 11.3 H (5.53-10.96) ug/dL TSH 3rd Generation 7.690 H (0.47-4.68) mIU/L Urine Color (Yellow) Urine Appearance (Clear) Urine pH (4.6-8.0) Ur Specific [place] (1.005-1.030) Urine Protein (Negative) Urine Glucose (UA) (Negative) mg/dL Urine Ketones (Negative) Urine Blood (Negative) Urine Nitrite (Negative) Urine Bilirubin (Negative) Urine Urobilinogen (0.2) mg/dL Ur Leukocyte Esterase (Negative) U Hyaline Cast (Auto) (0-2) /LPF Urine Microscopic RBC (0-5) /HPF Urine Microscopic WBC (0-5) /HPF Ur Epithelial Cells (None Seen) /HPF Urine Bacteria (None Seen) /HPF Urine Culture Reflexed (NO) Influenza Type A Ag (NEGATIVE) Influenza Type B Ag (NEGATIVE) RSV (PCR) (NEGATIVE) SARS-CoV-2 (PCR) (NEGATIVE) - Progress Progress: improved Air Movement: good Progress Note: 04/20/23 08:28 This patient's medical issue is 1 of moderate to high complexity. Level complexity in the workup performed is based on review the patient's past medical history, review the patient's medication list, review of the patient's drug allergy list, history of present illness and physical findings on examination. The workup in this patient includes placement of intravenous line, twelve-lead EKG, chest x-ray, urinalysis, CBC, CMP, BNP, troponin level, magnesium level, CT scan of the head. 04/20/23 09:18 The chest x-ray was interpreted by the radiologist and I reviewed the impression. The impression of the chest x-ray by the radiologist states nonacute chest with chronic features. The CT scan of the head without contrast was interpreted by the radiologist and I reviewed the impression. The impression of the CT scan of the head without contrast states nonacute senile brain with new, remote infarct of the right basal ganglia. This is compared to a CT scan of the head dated January 14, 2022 04/20/23 10:34 I reviewed the laboratory data results on this patient. Patient does have evidence of chronic anemia. Her 9.4 hemoglobin is within her typical range of 8.5-10. She has abnormal thyroid function test. They are not emergent levels and we will discharge her to home to follow-up with her primary care provider today to make arrangements for follow-up appointment. Blood Culture(s) Obtained: Yes Counseled pt/family regarding: lab results, diagnosis, rad results Medical Desision Making - Independent Historian Additional History obtained from: Spouse - Diagnostic Testing Diagnostic test were ordered, analyzed, and reviewed by me: Yes Radiological Interpretation: Reviewed by me, Teleradiologist Report - Risk of complications Low Risk: Low risk of morbidity from additional dx testing or treatment - Departure Departure Disposition: Home Clinical Impression: Abnormal finding on thyroid function test, Chronic anemia, Chronic renal insu fficiency Condition: Stable Critical Care Time: No Referrals: SHANE HOYOS NP, RN [NON-STAFF PHY W/O PRIVILEGES] - Follow up/PCP as directed Additional Instructions: Drink plenty fluids. Take your medications as prescribed. Call your primary care provider today, 04/20/2023, to make arrangements for a follow-up appointment in the next 3 to 5 days. Make sure they address the abnormal thyroid function tests.
[2023-04-20 08:22] VITALS: TEMP 96.3
[2023-04-20] MEDS ORDERED: Sodium Chloride 0.9% 1000 ML 1,000 ML IV SCH (08:30)
[2023-04-20 08:48] LABS: Absolute Neutrophil Ct (ANC) 9.42 x10^3/uL (1.4-6.9); BASOPHIL % 0.5 % (0.0-0.4); Basophil (Absolute #) 0.06 x10^3/uL (0-0.4); Eosinophil % 1.3 % (0.00-5.0); Eosinophil (Absolute #) 0.15 x10^3/uL (0-0.5); Hematocrit 28.9 % (35-47); Hemoglobin 9.4 g/dL (12.0-16.0); IMMATURE GRAN # 0.11 x10^3u/L (0.00-0.03); IMMATURE GRAN % 0.9 % (0.00-0.4); Lymphocyte (Absolute #) 1.52 x10^3/uL (1.0-4.6); Lymphocytes % 12.8 % (24.0-44.0); Mean Cell Volume 95.4 fL (78-100); Mean Corpuscular Hgb Concent. 32.5 g/dL (32-36); Mean Platelet Volume 9.1 fL (7.5-11.0); Monocyte (Absolute #) 0.62 x10^3/uL (0.0-1.3); Monocytes % 5.2 % (0.0-12.0); Neutrophil % 79.3 % (36.0-66.0); Platelet Count 502 x10^3/uL (150-450); Red Blood Count 3.03 x10^6/uL (4.1-5.4); Red Cell Distribution Width 14.2 % (11.5-14.0); White Blood Count 11.9 x10^3/uL (4.0-10.5)
--- NOTE | 2023-04-20 08:53 | XRAY ---
Indication: Short of breath. Comparison: October 04, 2022. Portable chest again demonstrates COPD and a few right apical calcified granulomas. No focal infiltrate, consolidation, or large effusion. Heart not enlarged again with left pacemaker. Bony thorax intact again with osteopenia and mild degenerative changes. Impression: Continued nonacute chest with chronic features.
[2023-04-20 09:05] LABS: INR 1.06 (0.8-3.0); PROTIME 11.5 SECONDS (9.4-12.5)
--- NOTE | 2023-04-20 09:12 | XRAY ---
Indication: Finger numbness. Weakness. History dementia. Multiple contiguous axial images obtained through the head without contrast. Comparison: January 14, 2022 Again age-appropriate global atrophy and moderate periventricular degenerative micro-ischemia bilaterally. New remote lacunar infarct right basal ganglia. No acute intracranial hemorrhage, abnormal extra-axial fluid collection, or mass effect. Fourth ventricle is midline without hydrocephalus. Bony calvarium intact. Visualized paranasal sinuses and mastoid air cells are clear. Impression: Again nonacute senile brain with new remote lacunar infarct right basal ganglia.
[2023-04-20 09:28] LABS: INFLUENZA A NEGATIVE (NEGATIVE); INFLUENZA B NEGATIVE (NEGATIVE); RESPIRATORY SYNCTIAL VIRUS NEGATIVE (NEGATIVE); SARS-CoV-2 Xpert Express NEGATIVE (NEGATIVE)
[2023-04-20] MEDS ORDERED: Sodium Chloride 0.9% 1000 ML 1,000 ML ONE (09:29)
[2023-04-20 09:36] LABS: ALBUMIN 4.3 g/dL (3.5-5.0); ANION GAP 16.8 MEQ/L (5-15); BILIRUBIN,TOTAL 0.5 mg/dL (0.2-1.3); Calcium 9.8 mg/dL (8.4-10.2); Creatinine 1 1.98 mg/dL (0.52-1.04); EST GLOMERULAR FILTRATION RATE 23.9 ML/MIN; MAGNESIUM 2.1 mg/dL (1.6-2.3); Potassium 3.6 mmol/L (3.5-5.1); T4 (Thyroxine) 11.3 ug/dL (5.53-10.96); TSH, 3RD Generation 7.69 mIU/L (0.47-4.68); Total Protein 7.4 g/dL (6.3-8.2)
[2023-04-20 10:07] VITALS: PULSE 66; RESP 18
[2023-04-20] MEDS ORDERED: Lasix 40 MG/4 ML IV ONE (10:11)
[2023-04-20 10:14] LABS: ADD URINE CULTURE? NO (NO); Appearance Clear (Clear); Bacteria None Seen /HPF (None Seen); Bilirubin Negative (Negative); Blood Negative (Negative); Epithelial Cells None Seen /HPF (None Seen); Glucose, Urine 100 mg/dL (Negative); Hyaline Casts NONE SEEN /LPF (0-2); Ketones Trace (Negative); Leukocyte Esterase Negative (Negative); Nitrite Negative (Negative); Ph 7.5 (4.6-8.0); Protein,Urine Dip Negative (Negative); RBC 0-2 /HPF (0-5); Urobilinogen 0.2 mg/dL (0.2); WBC 0-2 /HPF (0-5)
[2023-04-20] MEDS ORDERED: Lasix 40 MG/4 ML ONE (11:08)
[2023-04-20 11:09] VITALS: BP 187/70; O2SAT 96
== END 2023-04-20 11:30 | disposition home or self-care (01) ==
LOC: ED 08:02
DX: R94.6 Abnormal results of thyroid function studies (principal); D53.9 Nutritional anemia, unspecified; I13.0 Hypertensive heart and chronic kidney disease with heart failure and stage 1 through stage 4 chronic kidney disease, or unspecified chronic kidney disease; E11.22 Type 2 diabetes mellitus with diabetic chronic kidney disease; N18.9 Chronic kidney disease, unspecified; R06.02 Shortness of breath; R20.0 Anesthesia of skin; E78.5 Hyperlipidemia, unspecified; I50.9 Heart failure, unspecified; Z79.02 Long term (current) use of antithrombotics/antiplatelets; Z79.84 Long term (current) use of oral hypoglycemic drugs; Z79.899 Other long term (current) drug therapy; Z20.828 Contact with and (suspected) exposure to other viral communicable diseases; I48.91 Unspecified atrial fibrillation
CPT/HCPCS: 0241U; 36000; 36415; 70450; 71045; 80053; 81001; 83735; 83880; 84436; 84443; 84484; 85025; 85610; 87040; 93005; 93041; 94760; 96374; 99284; J1940

== ENCOUNTER 2024-02-05 18:33 | Emergency (ER) | payer MEDICARE, BC ==
--- NOTE | 2024-02-05 19:32 | ERPHSYRPT ---
- History of Present Illness Time Seen by Provider: 02/05/24 19:32 Source: patient, family Exam Limitations: no limitations Physician History: This is an 88-year-old white female patient who arrives by private vehicle escorted by her and is a patient of Dr. Diaz. She was found to have hyperglycemia today with a level of 600 on the Accu-Chek reading at home. Patient's states that he ordinarily checks her blood sugar at least once a day. Patient is not having any symptoms. The patient started prednisone last week to help treat/control her arthritis pain. Patient denies chest pain. Patient denies shortness of breath. Patient has no nausea vomiting or diarrhea symptoms. Patient has a history of hypertension, hypothyroidism, dementia, chr onic angina, pacemaker in place, type 2 diabetes. Patient is on Plavix. Timing/Duration: today Severity: mild (No significant symptoms) Associated Symptoms: denies symptoms Allergies/Adverse Reactions: No Known Drug Allergies Allergy (Verified 02/05/24 19:45) Home Medications: Amlodipine Besylate 5 mg PO DAILY 07/04/17 [History] Fenofibrate Nanocrystallized [Fenofibrate] 48 mg PO DAILY 07/04/17 [History] Metformin HCl 500 mg PO BIDWM 07/04/17 [History] Metoprolol Tartrate 50 mg [Lopressor 50 MG] 25 mg PO BID 07/04/17 [History] Clopidogrel Bisulfate [Clopidogrel] 75 mg PO 1200 08/14/19 [History] Folic Acid 1 mg [Folate 1 mg] 1 mg PO DAILY 08/14/19 [History] Isosorbide Mononitrate [Isosorbide Mononitrate ER] 30 mg PO DAILY 08/14/19 [History] Losartan Potassium 100 mg PO HS 08/14/19 [History] Multivitamin W-Minerals/Lutein [Centrum Silver Tablet] 1 each PO 1200 09/28/20 [History] Memantine HCl [Memantine HCl ER] 28 mg PO DAILY 09/25/22 [History] Ezetimibe 10 mg [Zetia 10 MG] 10 mg PO DAILY 02/05/24 [History] Levothyroxine Sodium [Tirosint] 37.5 mcg PO DAILY 02/05/24 [History] Prochlorperazine Maleate 5 mg* [Compazine 5 MG] 5 mg PO UD PRN 02/05/24 [History] Sodium Chloride [Fly-128] 15 ml OP DAILY 02/05/24 [History] predniSONE [Prednisone] 10 mg PO DAILY 02/05/24 [History] Hx Tetanus, Diphtheria Vaccination/Date Given: Yes Hx Influenza Vaccination/Date Given: No Hx Pneumococcal Vaccination/Date Given: Yes Travel Risk - International Travel Have you traveled outside of the country in past 3 weeks: No - Emerging Infectious Disease Are you exhibiting symptoms associated with any current EIDs: No - Review of Systems Constitutional: No Symptoms Eyes: No Symptoms Ears, Nose, & Throat: No Symptoms Respiratory: No Symptoms Cardiac: No Symptoms Abdominal/Gastrointestinal: No Symptoms Genitourinary Symptoms: No Symptoms Musculoskeletal: No Symptoms Skin: No Symptoms Neurological: No Symptoms Psychological: No Symptoms Endocrine: No Symptoms Hematologic/Lymphatic: No Symptoms Immunological/Allergic: No Symptoms All Other Systems: Reviewed and Negative - Past Medical History Pertinent Past Medical History: Yes Neurological History: Dementia ENT History: Glaucoma Cardiac History: Angina, Coronary Artery Disease, Hypertension Respiratory History: No Pertinent History Endocrine Medical History: Diabetes Type II Musculoskeletal History: No Pertinent History GI Medical History: No Pertinent History History: No Pertinent History Psycho-Social History: No Pertinent History Female Reproductive Disorders: Abnormal Uterine Bleeding Other Medical History: . 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, Significant Family History: no pertinent family hx - Social History Smoking Status: Former smoker Exposure to second hand smoke: No Drug Use: none Patient Lives Alone: No - Nursing Vital Signs Nursing Vital Signs: Initial Vital Signs Temperature 97 F 02/05/24 19:48 Pulse Rate 88 02/05/24 19:48 Respiratory Rate 18 02/05/24 19:48 Blood Pressure 197/91 02/05/24 19:48 O2 Sat by Pulse Oximetry 94 L 02/05/24 19:48 Pain Scale Pain Intensity 0 - Physical Exam General Appearance: no apparent distress, alert, thin Eye Exam: PERRL/EOMI, eyes nml inspection Ears, Nose, Throat Exam: normal ENT inspection, moist mucous membranes Neck Exam: normal inspection, non-tender, supple, full range of motion Respiratory Exam: normal breath sounds, lungs clear, airway intact, No chest tenderness, No respiratory distress Cardiovascular Exam: regular rate/rhythm, normal heart sounds, normal peripheral pulses Gastrointestinal/Abdomen Exam: soft, normal bowel sounds, No tenderness Pelvic Exam: not done Rectal Exam: not done Back Exam: normal inspection, normal range of motion, No CVA tenderness, No vertebral tenderness Extremity Exam: normal inspection, normal range of motion, pelvis stable Neurologic Exam: alert, oriented x 3, cooperative, exhibit display representative II-XII nml as tested, normal mood/affect, nml cerebellar function, nml station & gait, sensation nml Skin Exam: normal color, warm, dry Lymphatic Exam: No adenopathy SpO2 Interpretation: normal O2 Delivery: Room Air - Course Nursing assessment & vital signs reviewed: Yes Ordered Tests: Active Orders 24 hr Category Date Time Status Health Inspector Food STAT Care 02/05/24 20:13 Active IV Insertion STAT Care 02/05/24 20:12 Active POCT Glucose Check STAT Care 02/05/24 19:49 Active Pulse Oximetry (ED) STAT Care 02/05/24 20:12 Active CBC W DIFF Stat Lab 02/05/24 20:00 Completed CMP Stat Lab 02/05/24 20:00 Completed Lactic Acid Urgent Lab 02/05/24 20:15 Completed MAGNESIUM Stat Lab 02/05/24 20:00 Completed POCT GLUCOSE Stat Lab 02/05/24 19:43 Completed UA W/RFX UR CULTURE Stat Lab 02/05/24 20:19 Completed Medication Summary Generic Name Dose Route Start Last Admin Trade Name Freq PRN Reason Stop Dose Admin Sodium Chloride 1,000 mls @ 100 mls/hr 02/05/24 20:15 02/05/24 20:21 Sodium Chloride 0.9% 1000 Ml IV 03/06/24 20:14 100 mls/hr .Q10H MONE Administration Discontinued Medications Generic Name Dose Route Start Last Admin Trade Name Freq PRN Reason Stop Dose Admin Insulin Human Regular 18 unit 02/05/24 20:13 02/05/24 20:21 Insulin Regular, Human 1 Unit IV 02/05/24 20:14 18 unit STAT ONE Administration Insulin Human Regular Confirm 02/05/24 20:20 Insulin Regular, Human 1 Unit Administered 02/05/24 20:21 Dose 18 unit .ROUTE .STK-MED ONE Lab/Rad Data: Laboratory Result Diagrams 02/05/24 20:00 02/05/24 20:00 Laboratory Results 02/05/24 02/05/24 02/05/24 Range/Units 20:19 20:15 20:00 WBC (3.98-10.04) x10^3/uL RBC (3.93-5.22) x10^6/uL Hgb (11.2-15.7) g/dL Hct (34.1-44.9) % MCV (79.4-94.8) fL MCH (25.6-32.2) pg MCHC (32.2-35.5) g/dL RDW (11.7-14.4) % Plt Count (182-369) x10^3/uL MPV (9.4-12.3) fL Gran % (34.0-71.1) % Immature Gran % (Auto) (0.001-0.429) % Nucleat RBC Rel Count (0.00-0.2) % Eos # (Auto) (0.04-0.36) x10^3/uL Immature Gran # (Auto) (0.001-0.031) x10^3u/L Absolute Lymphs (auto) (1.18-3.74) x10^3/uL Absolute Monos (auto) (0.24-0.86) x10^3/uL Absolute Nucleated RBC (0.00-0.012) x10^3u/L Lymphocytes % (19.3-51.7) % Monocytes % (4.7-12.5) % Eosinophils % (0.7-5.8) % Basophils % (0.1-1.2) % Absolute Granulocytes (1.56-6.13) x10^3/uL Basophils # (0.01-0.08) x10^3/uL Sodium 133 L (135-145) mmol/L Potassium 4.6 (3.5-5.1) mmol/L Chloride 97 L (98-107) mmol/L Carbon Dioxide 23 (22-30) mmol/L Anion Gap 17.9 H (5-15) MEQ/L BUN 43 H (7-17) mg/dL Creatinine 2.00 H (0.52-1.04) mg/dL Estimated GFR 23.4 ML/MIN Glucose 615 H* (74-106) mg/dL POC Glucometer (50 to 500) mg/dL Lactic Acid 1.8 (0.4-2.0) Calcium 9.5 (8.4-10.2) mg/dL Magnesium 2.1 (1.6-2.3) mg/dL Total Bilirubin 0.40 (0.2-1.3) mg/dL AST 35 (14-36) U/L ALT 25 (0-35) U/L Alkaline Phosphatase 63 (38-126) U/L Serum Total Protein 7.4 (6.3-8.2) g/dL Albumin 4.5 (3.5-5.0) g/dL Urine Color Yellow (Yellow) Urine Appearance Clear (Clear) Urine pH 7.5 (4.6-8.0) Ur Specific Orla 1.020 (1.005-1.030) Urine Protein Negative (Negative) Urine Glucose (UA) >=1000 A (Negative) mg/dL Urine Ketones Negative (Negative) Urine Blood Negative (Negative) Urine Nitrite Negative (Negative) Urine Bilirubin Negative (Negative) Urine Urobilinogen 0.2 (0.2) mg/dL Ur Leukocyte Esterase Negative (Negative) U Hyaline Cast (Auto) NONE SEEN (0-2) /LPF Urine Microscopic RBC 0-2 (0-5) /HPF Urine Microscopic WBC 3-5 (0-5) /HPF Ur Epithelial Cells None Seen (None Seen) /HPF Urine Bacteria None Seen (None Seen) /HPF Urine Culture Reflexed NO (NO) 02/05/24 02/05/24 Range/Units 20:00 19:43 WBC 10.7 H (3.98-10.04) x10^3/uL RBC 3.48 L (3.93-5.22) x10^6/uL Hgb 10.8 L (11.2-15.7) g/dL Hct 33.9 L (34.1-44.9) % MCV 97.4 H (79.4-94.8) fL MCH 31.0 (25.6-32.2) pg MCHC 31.9 L (32.2-35.5) g/dL RDW 14.9 H (11.7-14.4) % Plt Count 468 H (182-369) x10^3/uL MPV 9.9 (9.4-12.3) fL Gran % 87.2 H (34.0-71.1) % Immature Gran % (Auto) 0.9 H (0.001-0.429) % Nucleat RBC Rel Count 0.4 H (0.00-0.2) % Eos # (Auto) 0.01 L (0.04-0.36) x10^3/uL Immature Gran # (Auto) 0.10 H (0.001-0.031) x10^3u/L Absolute Lymphs (auto) 0.85 L (1.18-3.74) x10^3/uL Absolute Monos (auto) 0.36 (0.24-0.86) x10^3/uL Absolute Nucleated RBC 0.04 H (0.00-0.012) x10^3u/L Lymphocytes % 8.0 L (19.3-51.7) % Monocytes % 3.4 L (4.7-12.5) % Eosinophils % 0.1 L (0.7-5.8) % Basophils % 0.4 (0.1-1.2) % Absolute Granulocytes 9.29 H (1.56-6.13) x10^3/uL Basophils # 0.04 (0.01-0.08) x10^3/uL Sodium (135-145) mmol/L Potassium (3.5-5.1) mmol/L Chloride (98-107) mmol/L Carbon Dioxide (22-30) mmol/L Anion Gap (5-15) MEQ/L BUN (7-17) mg/dL Creatinine (0.52-1.04) mg/dL Estimated GFR ML/MIN Glucose (74-106) mg/dL POC Glucometer 554 H* (50 to 500) mg/dL Lactic Acid (0.4-2.0) Calcium (8.4-10.2) mg/dL Magnesium (1.6-2.3) mg/dL Total Bilirubin (0.2-1.3) mg/dL AST (14-36) U/L ALT (0-35) U/L Alkaline Phosphatase (38-126) U/L Serum Total Protein (6.3-8.2) g/dL Albumin (3.5-5.0) g/dL Urine Color (Yellow) Urine Appearance (Clear) Urine pH (4.6-8.0) Ur Specific Orla (1.005-1.030) Urine Protein (Negative) Urine Glucose (UA) (Negative) mg/dL Urine Ketones (Negative) Urine Blood (Negative) Urine Nitrite (Negative) Urine Bilirubin (Negative) Urine Urobilinogen (0.2) mg/dL Ur Leukocyte Esterase (Negative) U Hyaline Cast (Auto) (0-2) /LPF Urine Microscopic RBC (0-5) /HPF Urine Microscopic WBC (0-5) /HPF Ur Epithelial Cells (None Seen) /HPF Urine Bacteria (None Seen) /HPF Urine Culture Reflexed (NO) - Progress Progress: improved Progress Note: 02/05/24 20:32 My medical decision making and the assignment of mod complexity this patient's medical issue today is based on review of the patient's past medical history, review patient medication list, reviewed patient drug allergy list, history present illness and physical findings on examination. The workup in this patient includes placement of intravenous line, CBC, CMP, amylase, lipase, lactic acid, magnesium level, urinalysis, infusion of intravenous saline, infu barby of regular insulin intravenously. Differential diagnosis includes but not limited to DKA, hyperglycemia 02/05/24 21:24 I interpreted the patient's laboratory data results. Based on the laboratory data results, patient has hyperglycemia. She does not appear to have DKA. Patient's CO2, lactic acid levels are normal. Patient's anion gap is only slightly elevated. Patient has no ketones in her urine. 02/05/24 21:25 Counseled pt/family regarding: lab results, diagnosis, need for follow-up - Departure Departure Disposition: Home Clinical Impression: Hyperglycemia Condition: Stable Critical Care Time: No Referrals: ANTOINE DIAZ DO [Primary Care Provider] - Follow up/PCP as directed Additional Instructions: Drink plenty of fluids. Hold your prednisone. Monitor your blood sugar clos rinku. Take your diabetic medication as prescribed. Call your prescribing provider tomorrow morning, 02/06/2024, and make them aware of your blood sugar readings and to obtain further instructions.
[2024-02-05 19:56] VITALS: TEMP 97
[2024-02-05 20:17] LABS: Absolute Neutrophil Ct (ANC) 9.29 x10^3/uL (1.56-6.13); BASOPHIL % 0.4 % (0.1-1.2); Basophil (Absolute #) 0.04 x10^3/uL (0.01-0.08); Eosinophil % 0.1 % (0.7-5.8); Eosinophil (Absolute #) 0.01 x10^3/uL (0.04-0.36); Hematocrit 33.9 % (34.1-44.9); Hemoglobin 10.8 g/dL (11.2-15.7); IMMATURE GRAN % 0.9 % (0.001-0.429); Lymphocyte (Absolute #) 0.85 x10^3/uL (1.18-3.74); Mean Cell Volume 97.4 fL (79.4-94.8); Mean Corpuscular Hgb Concent. 31.9 g/dL (32.2-35.5); Mean Platelet Volume 9.9 fL (9.4-12.3); Monocyte (Absolute #) 0.36 x10^3/uL (0.24-0.86); Monocytes % 3.4 % (4.7-12.5); NUCLEATED RBC # 0.04 x10^3u/L (0.00-0.012); NUCLEATED RBC % 0.4 % (0.00-0.2); Neutrophil % 87.2 % (34.0-71.1); Platelet Count 468 x10^3/uL (182-369); Red Blood Count 3.48 x10^6/uL (3.93-5.22); Red Cell Distribution Width 14.9 % (11.7-14.4); White Blood Count 10.7 x10^3/uL (3.98-10.04)
[2024-02-05] MEDS ORDERED: Sodium Chloride 0.9% 1000 ML 1,000 ML ONE (20:20)
[2024-02-05] MEDS ORDERED: HUMULIN R ONE ×2 (20:20→21:38)
[2024-02-05] MEDS: HUMULIN R IV ONE ×2 (20:21→21:39)
[2024-02-05] MEDS: Sodium Chloride 0.9% 1000 ML 1,000 ML IV SCH (20:21)
[2024-02-05 20:24] LABS: ALBUMIN 4.5 g/dL (3.5-5.0); ANION GAP 17.9 MEQ/L (5-15); BILIRUBIN,TOTAL 0.4 mg/dL (0.2-1.3); Calcium 9.5 mg/dL (8.4-10.2); EST GLOMERULAR FILTRATION RATE 23.4 ML/MIN; MAGNESIUM 2.1 mg/dL (1.6-2.3); Potassium 4.6 mmol/L (3.5-5.1); Total Protein 7.4 g/dL (6.3-8.2)
[2024-02-05 20:27] LABS: Appearance Clear (Clear); Bacteria None Seen /HPF (None Seen); Bilirubin Negative (Negative); Blood Negative (Negative); Epithelial Cells None Seen /HPF (None Seen); Glucose, Urine >=1000 mg/dL (Negative); Hyaline Casts NONE SEEN /LPF (0-2); Ketones Negative (Negative); Leukocyte Esterase Negative (Negative); Nitrite Negative (Negative); Ph 7.5 (4.6-8.0); Protein,Urine Dip Negative (Negative); RBC 0-2 /HPF (0-5); Urobilinogen 0.2 mg/dL (0.2)
[2024-02-05 22:22] VITALS: O2SAT 95
[2024-02-05 22:27] VITALS: BP 175/84; PULSE 80; RESP 16
== END 2024-02-05 22:31 | disposition home or self-care (01) ==
LOC: ED 18:33
DX: E11.65 Type 2 diabetes mellitus with hyperglycemia (principal); I10 Essential (primary) hypertension; Z79.02 Long term (current) use of antithrombotics/antiplatelets; Z79.84 Long term (current) use of oral hypoglycemic drugs; Z79.52 Long term (current) use of systemic steroids; Z79.899 Other long term (current) drug therapy
CPT/HCPCS: 36000; 36415; 80053; 81001; 82947; 83605; 83735; 85025; 93041; 94760; 96374; 96376; 99284; J1815

== ENCOUNTER 2024-02-16 02:22 | Emergency (ER) | payer MEDICARE, BC ==
[2024-02-16 02:42] VITALS: TEMP 97.2
[2024-02-16 02:53] LABS: Absolute Neutrophil Ct (ANC) 5.41 x10^3/uL (1.56-6.13); BASOPHIL % 0.8 % (0.1-1.2); Basophil (Absolute #) 0.08 x10^3/uL (0.01-0.08); Eosinophil % 2.4 % (0.7-5.8); Eosinophil (Absolute #) 0.23 x10^3/uL (0.04-0.36); Hematocrit 33.9 % (34.1-44.9); Hemoglobin 10.8 g/dL (11.2-15.7); IMMATURE GRAN # 0.03 x10^3u/L (0.001-0.031); IMMATURE GRAN % 0.3 % (0.001-0.429); Lymphocyte (Absolute #) 2.72 x10^3/uL (1.18-3.74); Lymphocytes % 28.6 % (19.3-51.7); Mean Cell Volume 96.9 fL (79.4-94.8); Mean Corpuscular Hemoglobin 30.9 pg (25.6-32.2); Mean Corpuscular Hgb Concent. 31.9 g/dL (32.2-35.5); Mean Platelet Volume 9.4 fL (9.4-12.3); Monocyte (Absolute #) 1.03 x10^3/uL (0.24-0.86); Monocytes % 10.8 % (4.7-12.5); Neutrophil % 57.1 % (34.0-71.1); Platelet Count 443 x10^3/uL (182-369); Red Cell Distribution Width 14.8 % (11.7-14.4); White Blood Count 9.5 x10^3/uL (3.98-10.04)
--- NOTE | 2024-02-16 02:54 | ERPHSYRPT ---
- History of Present Illness Time Seen by Provider: 02/16/24 02:32 Historian: patient, family, EMS Exam Limitations: no limitations Patient Subjective Stated Complaint: "I don't know what really happened. I woke up and couldn't stop shaking". Triage Nursing Assessment: Pt presents to ER with complaints of shaking that awoke her in the middle of the night, was concerned for possible stroke so called 911. Pt states is not experiencing any pain but feels as if a pressure is over her chest, appears anxious. Pt started having some moderate shaking of the left leg upon assessment. Pt respirations are unlabored. Skin is pink, warm, and dry. Denies nausea/vomiting/diarrhea. Physician History: 88-year-old female with multiple medical problems including hypertension, hyperlipidemia, diabetes mellitus, pacemaker placement, coronary artery disease disease presented to the ER with complains of shaking of legs waking her up from sleep. Patient reports waking up almost half an hour prior to arrival reports she was shaking but improved in route to the ER. She was very anxious and has been thought she was having a stroke. Patient also reports having some pressure in the center of the chest but no difficulty breathing or palpitations. No fever or chills reported. reports patient having similar episodes of shaking few times in the past especially at nights which usually go away after few minutes. She denies any focal numbness tingling or weakness. Denies any blurry vision or difficulty speech. Allergies/Adverse Reactions: No Known Drug Allergies Allergy (Verified 02/16/24 02:49) Home Medications: Amlodipine Besylate 5 mg PO DAILY 07/04/17 [History] Fenofibrate Nanocrystallized [Fenofibrate] 48 mg PO DAILY 07/04/17 [History] Metformin HCl 500 mg PO BIDWM 07/04/17 [History] Metoprolol Tartrate 50 mg [Lopressor 50 MG] 25 mg PO BID 07/04/17 [History] Clopidogrel Bisulfate [Clopidogrel] 75 mg PO 1200 08/14/19 [History] Folic Acid 1 mg [Folate 1 mg] 1 mg PO DAILY 08/14/19 [History] Isosorbide Mononitrate [Isosorbide Mononitrate ER] 30 mg PO DAILY 08/14/19 [History] Losartan Potassium 100 mg PO HS 08/14/19 [History] Multivitamin W-Minerals/Lutein [Centrum Silver Tablet] 1 each PO 1200 09/28/20 [History] Memantine HCl [Memantine HCl ER] 28 mg PO DAILY 09/25/22 [History] Levothyroxine Sodium [Tirosint] 37.5 mcg PO DAILY 02/05/24 [History] Ferrous Sulfate [Iron] 1 dose PO DAILY 02/16/24 [History] Hx Tetanus, Diphtheria Vaccination/Date Given: Yes Hx Influenza Vaccination/Date Given: Yes Hx Pneumococcal Vaccination/Date Given: Yes Immunizations Up to Date: Yes Travel Risk - International Travel Have you traveled outside of the country in past 3 weeks: No - Emerging Infectious Disease Are you exhibiting symptoms associated with any current EIDs: No - Review of Systems Constitutional: Fatigue Eyes: No Symptoms Ears, Nose, & Throat: No Symptoms Respiratory: No Symptoms Cardiac: Chest Pain Abdominal/Gastrointestinal: No Symptoms Genitourinary Symptoms: No Symptoms Musculoskeletal: Arthralgias Skin: No Symptoms Neurological: No Symptoms Psychological: Anxiety Endocrine: No Symptoms Hematologic/Lymphatic: No Symptoms - Past Medical History Pertinent Past Medical History: Yes Neurological History: Dementia ENT History: Glaucoma Cardiac History: Angina, Coronary Artery Disease, Hypertension Respiratory History: No Pertinent History Endocrine Medical History: Diabetes Type II Musculoskeletal History: No Pertinent History GI Medical History: No Pertinent History History: No Pertinent History Psycho-Social History: No Pertinent History Female Reproductive Disorders: Abnormal Uterine Bleeding Other Medical History: . - Past Surgical History Past Surgical History: Yes Neuro Surgical History: No Pertinent History Cardiac: Pacemaker Respiratory: No Pertinent History Gastrointestinal: No Pertinent History Genitourinary: No Pertinent History Musculoskeletal: No Pertinent History Female Surgical History: Hysterectomy Other Surgical History: 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,COLON SURGERIES "YEARS AND YEARS AGO" ,breat tumors removed noncancerous,tumor from back removed, Significant Family History: no pertinent family hx - Social History Smoking Status: Former smoker Exposure to second hand smoke: No Drug Use: none Patient Lives Alone: No - Social Determinants of Health Will the patient participate in the screening: Yes Do you worry about a steady place to live?: No Do you have any problems with any of the following?: No known problems In the past 12 months,have you had to go without utilities?: No Transportation Issues: No Has anyone in your support network made you feel unsafe?: No Have you or anyone in your house had to go without enough: No - Nursing Vital Signs Nursing Vital Signs: Initial Vital Signs Temperature 97.2 F 02/16/24 02:24 Pulse Rate 67 02/16/24 02:24 Respiratory Rate 16 02/16/24 02:24 Blood Pressure 190/67 02/16/24 02:24 O2 Sat by Pulse Oximetry 97 02/16/24 02:24 Pain Scale Pain Intensity 0 - Physical Exam General Appearance: no apparent distress, alert, anxiety Eye Exam: PERRL/EOMI Ears, Nose, Throat Exam: normal ENT inspection Neck Exam: normal inspection, non-tender, supple, full range of motion Respiratory Exam: normal breath sounds, lungs clear Cardiovascular Exam: regular rate/rhythm, normal heart sounds Gastrointestinal/Abdomen Exam: soft, normal bowel sounds, No tenderness Back Exam: normal inspection, normal range of motion Extremity Exam: normal inspection, normal range of motion Neurologic Exam: alert, oriented x 3, cooperative, housekeeping assistant II-XII nml as tested, nml cerebellar function, sensation nml, No normal mood/affect (Anxious), No motor deficits Skin Exam: normal color SpO2 Interpretation: normal SpO2: 97 O2 Delivery: Room Air - Course EKG Interpreted by Me: RATE (Ventricular paced rhythm 70bpm), Right [employer] Deviation, prolonged QT interval, Non-specific ST Changes Ordered Tests: Active Orders 24 hr Category Date Time Status CHEST 1 VIEW (PORTABLE) Stat Exams 02/16/24 02:43 Taken CBC W DIFF Stat Lab 02/16/24 02:51 Completed CMP Stat Lab 02/16/24 02:51 Completed MAGNESIUM Stat Lab 02/16/24 02:51 Completed NT PRO BNPII Stat Lab 02/16/24 02:51 Completed TROPONIN Q4H Lab 02/16/24 02:51 Completed TROPONIN Q4H Lab 02/16/24 06:00 Completed TROPONIN Q4H Lab 02/16/24 10:45 Ordered Medication Summary Discontinued Medications Generic Name Dose Route Start Last Admin Trade Name Kofiq PRN Reason Stop Dose Admin Ropinirole HCl 0.5 mg 02/16/24 02:39 02/16/24 03:00 Ropinirole Hcl 0.5 Mg Tablet PO 02/16/24 02:40 0.5 mg ONCE STA Administration Lab/Rad Data: Laboratory Result Diagrams 02/16/24 02:51 02/16/24 02:51 Laboratory Results 02/16/24 02/16/24 02/16/24 Range/Units 06:00 02:51 02:51 WBC (3.98-10.04) x10^3/uL RBC (3.93-5.22) x10^6/uL Hgb (11.2-15.7) g/dL Hct (34.1-44.9) % MCV (79.4-94.8) fL MCH (25.6-32.2) pg MCHC (32.2-35.5) g/dL RDW (11.7-14.4) % Plt Count (182-369) x10^3/uL MPV (9.4-12.3) fL Gran % (34.0-71.1) % Immature Gran % (Auto) (0.001-0.429) % Nucleat RBC Rel Count (0.00-0.2) % Eos # (Auto) (0.04-0.36) x10^3/uL Immature Gran # (Auto) (0.001-0.031) x10^3u/L Absolute Lymphs (auto) (1.18-3.74) x10^3/uL Absolute Monos (auto) (0.24-0.86) x10^3/uL Absolute Nucleated RBC (0.00-0.012) x10^3u/L Lymphocytes % (19.3-51.7) % Monocytes % (4.7-12.5) % Eosinophils % (0.7-5.8) % Basophils % (0.1-1.2) % Absolute Granulocytes (1.56-6.13) x10^3/uL Basophils # (0.01-0.08) x10^3/uL Sodium 140 (135-145) mmol/L Potassium 3.9 (3.5-5.1) mmol/L Chloride 104 (98-107) mmol/L Carbon Dioxide 23 (22-30) mmol/L Anion Gap 16.9 H (5-15) MEQ/L BUN 49 H (7-17) mg/dL Creatinine 2.05 H (0.52-1.04) mg/dL Estimated GFR 22.8 ML/MIN Glucose 76 (74-106) mg/dL Calcium 10.2 (8.4-10.2) mg/dL Magnesium 2.4 H (1.6-2.3) mg/dL Total Bilirubin 0.30 (0.2-1.3) mg/dL AST 24 (14-36) U/L ALT 18 (0-35) U/L Alkaline Phosphatase 51 (38-126) U/L Troponin I < 0.012 < 0.012 (0.000-0.033) ng/mL NT-Pro-B Natriuret Pep 1730 (<300) pg/mL Serum Total Protein 7.4 (6.3-8.2) g/dL Albumin 4.3 (3.5-5.0) g/dL 02/16/24 Range/Units 02:51 WBC 9.5 (3.98-10.04) x10^3/uL RBC 3.50 L (3.93-5.22) x10^6/uL Hgb 10.8 L (11.2-15.7) g/dL Hct 33.9 L (34.1-44.9) % MCV 96.9 H (79.4-94.8) fL MCH 30.9 (25.6-32.2) pg MCHC 31.9 L (32.2-35.5) g/dL RDW 14.8 H (11.7-14.4) % Plt Count 443 H (182-369) x10^3/uL MPV 9.4 (9.4-12.3) fL Gran % 57.1 (34.0-71.1) % Immature Gran % (Auto) 0.3 (0.001-0.429) % Nucleat RBC Rel Count 0.0 (0.00-0.2) % Eos # (Auto) 0.23 (0.04-0.36) x10^3/uL Immature Gran # (Auto) 0.03 (0.001-0.031) x10^3u/L Absolute Lymphs (auto) 2.72 (1.18-3.74) x10^3/uL Absolute Monos (auto) 1.03 H (0.24-0.86) x10^3/uL Absolute Nucleated RBC 0.00 (0.00-0.012) x10^3u/L Lymphocytes % 28.6 (19.3-51.7) % Monocytes % 10.8 (4.7-12.5) % Eosinophils % 2.4 (0.7-5.8) % Basophils % 0.8 (0.1-1.2) % Absolute Granulocytes 5.41 (1.56-6.13) x10^3/uL Basophils # 0.08 (0.01-0.08) x10^3/uL Sodium (135-145) mmol/L Potassium (3.5-5.1) mmol/L Chloride (98-107) mmol/L Carbon Dioxide (22-30) mmol/L Anion Gap (5-15) MEQ/L BUN (7-17) mg/dL Creatinine (0.52-1.04) mg/dL Estimated GFR ML/MIN Glucose (74-106) mg/dL Calcium (8.4-10.2) mg/dL Magnesium (1.6-2.3) mg/dL Total Bilirubin (0.2-1.3) mg/dL AST (14-36) U/L ALT (0-35) U/L Alkaline Phosphatase (38-126) U/L Troponin I (0.000-0.033) ng/mL NT-Pro-B Natriuret Pep (<300) pg/mL Serum Total Protein (6.3-8.2) g/dL Albumin (3.5-5.0) g/dL - Progress Progress: improved Air Movement: good Progress Note: 02/16/24 06:46 88-year-old is evaluated in the ER after she woke up with shakes especially in the lower extremities. Patient later on reported she had some pressure in the chest. EKG showed paced rhythm with no acute ischemic hemic changes. Troponins negative. Normal white count, chemistries with stable CKD. Chest x-ray no acute cardiopulmonary findings reviewed by me, official report is pending. Patient is given Requip, reevaluation her shakes are improved. I believe patient's has restless leg syndrome and will continue with Requip. I have recommended observation admission but patient/ prefer to go home. Obtain second troponin returned negative and patient remained asymptomatic. She is being discharged with outpatient follow-up. Discussed signs symptoms of worsening needing return to ER which she seems understanding. Stable for disch arge. Blood Culture(s) Obtained: No Antibiotics given: No Counseled pt/family regarding: lab results, diagnosis, need for follow-up, rad results Medical Desision Making - Independent Historian Additional History obtained from: Spouse, Hand Binder Stripper/EMT - Diagnostic Testing Diagnostic test were ordered, analyzed, and reviewed by me: Yes Radiological Interpretation: Interpreted by me, Reviewed by me - Risk of complications The pt has a mod risk of morbidity or mortality based on: Need for prescription drug management - Departure Departure Disposition: Home Clinical Impression: Restless leg syndrome, Chest pain, Anxiety Condition: Stable Critical Care Time: No Referrals: ANTOINE DIAZ DO [Primary Care Provider] - Follow up with PCP 1 day Instructions: Anxiety, Adult (DC), Chest pain - Discharge instructions Additional Instructions: Follow-up with your primary care and shear grinder operator for reevaluation. Return to ER if having chest pain palpitations or difficulty breathing. Prescriptions: Ropinirole HCl 0.5 mg [Requip 0.5 MG] 0.25 mg PO DAILY 30 Days #30 tablet
[2024-02-16] MEDS: Requip 0.5 MG PO STA (03:00)
[2024-02-16 03:17] LABS: ALBUMIN 4.3 g/dL (3.5-5.0); ANION GAP 16.9 MEQ/L (5-15); BILIRUBIN,TOTAL 0.3 mg/dL (0.2-1.3); Calcium 10.2 mg/dL (8.4-10.2); Creatinine 1 2.05 mg/dL (0.52-1.04); EST GLOMERULAR FILTRATION RATE 22.8 ML/MIN; MAGNESIUM 2.4 mg/dL (1.6-2.3); Potassium 3.9 mmol/L (3.5-5.1); Total Protein 7.4 g/dL (6.3-8.2)
[2024-02-16 06:50] VITALS: O2SAT 97
[2024-02-16 07:02] VITALS: BP 178/62; PULSE 78; RESP 19
--- NOTE | 2024-02-16 09:16 | XRAY ---
Indication: Chest pain. Comparison: October 20, 2023 Portable chest unchanged again demonstrating COPD and tiny calcified granulomas. Heart not enlarged again with left pacemaker. Bony thorax intact again with osteopenia and degenerative changes. No new/acute findings.
== END 2024-02-16 07:10 | disposition home or self-care (01) ==
LOC: ED 02:22
DX: G25.81 Restless legs syndrome (principal); R07.9 Chest pain, unspecified; F41.9 Anxiety disorder, unspecified; I10 Essential (primary) hypertension; E78.5 Hyperlipidemia, unspecified; E11.9 Type 2 diabetes mellitus without complications; Z79.84 Long term (current) use of oral hypoglycemic drugs; Z79.02 Long term (current) use of antithrombotics/antiplatelets; Z79.899 Other long term (current) drug therapy
CPT/HCPCS: 36415; 71045; 80053; 83735; 83880; 84484; 85025; 99283; A9270-GY